=== PATIENT | male | born 1980 | race Two or more races ===

== ENCOUNTER 2020-12-14 18:34 | Inpatient (IN) | payer MEDICARE, OTHER, SELFPAY ==
--- NOTE | 2020-12-14 | ECG_ITS ---
Test Reason : New admission Blood Pressure : / mmHG Vent. Rate : 069 BPM Atrial Rate : 069 BPM P-R Int : 152 ms QRS Dur : 102 ms QT Int : 394 ms P-R-T Axes : 057 071 044 degrees QTc Int : 422 ms Normal sinus rhythm Normal ECG No previous ECGs available Referred By: Deepti Saul Electronically Signed By:LINO CHAMBERS MD
[2020-12-14] MEDS: traZODone HCL 50 MG TABLET PO (21:02)
[2020-12-14] MEDS: hydrOXYzine HCL 25 MG TABLET PO (21:02)
[2020-12-14] MEDS: LORazepam 1 MG TABLET PO (21:58)
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
--- NOTE | 2020-12-14 22:31 | PC.NURSE ---
Patient has requested compression stockings because he has a history of blood clots and they make his leg feel better.
--- NOTE | 2020-12-14 23:19 | PC.NURSE ---
While obtaining patients blood pressure, patient refused to sit down, was clenching fist, and moving around. Blood pressure read out 180/80. Patient then would not let this nurse take blood pressure reading again.
[2020-12-14 23:21] VITALS: BP 180/80
[2020-12-14] MEDS: Nicotine Polacrilex 2 MG GUM BUCCAL (23:24)
[2020-12-15] MEDS: Acetaminophen 325 MG TABLET 650 MG PO ×2 (08:11→18:23)
[2020-12-15] MEDS: LORazepam 1 MG TABLET PO (08:12)
[2020-12-15 08:28] LABS: MANUAL DIFF FLAG NO
[2020-12-15 08:36] LABS: Basophils Absolute Auto 0.1 X10*3/uL (0.0-0.2); Basophils Percent Auto 0.6 % (0-2); Eosinophils Absolute Auto 0.4 X10*3/uL (0.0-0.4); Hematocrit 46.5 % (42-52); Hemoglobin 15.6 g/dl (14.0-18.0); Lymphocytes Absolute Auto 2.6 X10*3/uL (1.2-4.9); Mean Corpuscular HGB Conc 33.5 g/dl (31.0-36.0); Mean Corpuscular Volume 92.4 fL (80-98); Mean Platelet Volume 9.8 fL (9.4-12.4); Monocytes Absolute Auto 0.8 X10*3/uL (0.1-1.2); Neutrophils Absolute Auto 6.1 X10*3/uL (2.0-8.3); Neutrophils Percent Auto 60.4 % (45-73); Platelet Count 265 X10*3/uL (160-400); Red Blood Count 5.03 X10*6/uL (4.60-5.80); Red Cell Distribution Width 14.2 % (11.0-16.0); White Blood Count 10.1 X10*3/uL (4.8-10.8)
[2020-12-15 08:51] LABS: Alanine Aminotransferase 18 U/L (0-40); Alkaline Phosphatase 60 U/L (39-117); Anion Gap 13 (12-20); Aspartate Amino Transferase 15 U/L (5-37); Bilirubin Total 0.6 mg/dL (0.0-1.0); Blood Urea Nitrogen 16 mg/dL (9-16); Calcium 9.5 mg/dL (8.4-10.2); Carbon Dioxide 23 mmol/L (22-29); Chloride 105 mmol/L (96-108); Cholesterol 152 mg/dL; Estimated Glomerular Filt Rate > 60; Glucose Fasting 105 mg/dL (60-99); HDL Cholesterol 40 mg/dL; LDL Cholesterol Calculated 95 mg/dl; Potassium 4.6 mmol/L (3.3-5.1); Sodium 136 mmol/L (135-145); Total Protein 6.5 g/dL (6.5-8.0); Triglycerides 88 mg/dL
[2020-12-15 08:52] LABS: Estimated Average Glucose 94 mg/dL; Hemoglobin A1c % 4.9 %
[2020-12-15] MEDS: Nicotine Polacrilex 2 MG GUM BUCCAL ×2 (11:16→13:22)
[2020-12-15] MEDS: Lidocaine 4 % Patch ADH..PATCH 2 PATCH TRANSDERMA (12:19)
--- NOTE | 2020-12-15 13:32 | MHC.CLN ---
NUTRITION PATIENT REPORTED THAT HEIGHT = 6 FEET, WEIGHT = 203#. REPORTS GOOD APPETITE.
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
[2020-12-15 14:59] VITALS: BP 141/86; PULSE 80
[2020-12-15] MEDS: OLANZapine 5 MG TABLET PO ×2 (14:59→21:31)
[2020-12-15] MEDS: cloNIDine HCL 0.1 MG TABLET PO ×2 (14:59→21:31)
[2020-12-15] MEDS: hydrOXYzine HCL 50 MG TABLET PO (18:24)
[2020-12-15 21:01] VITALS: BP 131/81; PULSE 74; TEMP 36.7; O2SAT 96
[2020-12-15 21:31] VITALS: BP 131/81; PULSE 74
[2020-12-15] MEDS: traZODone HCL 50 MG TABLET PO (21:36)
[2020-12-15] MEDS: Gabapentin 600 MG TABLET PO (22:51)
[2020-12-15] MEDS: Ibuprofen 600 MG TABLET PO (22:51)
[2020-12-16] MEDS: hydrOXYzine HCL 50 MG TABLET PO ×4 (01:26→22:03)
[2020-12-16] MEDS: Acetaminophen 325 MG TABLET 650 MG PO ×4 (01:26→20:11)
[2020-12-16] MEDS: traZODone HCL 50 MG TABLET PO ×2 (01:27→22:03)
[2020-12-16 07:59] VITALS: BP 140/86; PULSE 76
[2020-12-16] MEDS: Ibuprofen 600 MG TABLET PO ×2 (07:59→14:38)
[2020-12-16] MEDS: cloNIDine HCL 0.1 MG TABLET PO ×2 (07:59→20:11)
[2020-12-16] MEDS: Nicotine Polacrilex 2 MG GUM BUCCAL ×2 (07:59→18:22)
[2020-12-16] MEDS: OLANZapine 5 MG TABLET PO (07:59)
[2020-12-16] MEDS: Lidocaine 4 % Patch ADH..PATCH 2 PATCH TRANSDERMA (07:59)
[2020-12-16 08:24] VITALS: BP 140/86; PULSE 76; TEMP 36.6
--- NOTE | 2020-12-16 09:55 | P.PNPSI_ITS ---
Subjective Subjective Date of Service: 12/16/20 Reason For Visit: Major Depressive D/O Subjective Notes: Conditional Voluntary Interim History: Pt reports feeling less anxious. He reports less AH but continues to hear them at night. He reports he wants to have gabapentin back for chronic back pain. He reports nightmares. He continues to report passive SI but denies any plan or intent. Pt wants to continue OP psych tx, no substance use treatment. He has been visible in the unit, per nursing, pt agitated last night due to pain and demanding gabapentin when day of admission he had stated it had not been beneficial for pain. Medication Compliance: Yes Review of Systems Constitutional: Reports headache(s), Reports poor appetite and Reports weakness Eyes: Reports floaters Reports headache(s) Cardiovascular: Denies chest pain, Denies chest pain at rest, Denies chest pain with activity, Denies diaphoresis, Denies syncope, Denies rapid heart rate, Denies irregular heart rhythm, Denies lightheadedness and Denies radiating jaw, neck or arm pain Respiratory: Denies chest congestion, Denies hemoptysis, Denies pain on inspiration and Denies pain with cough Gastrointestinal: Denies constipation, Denies diarrhea, Denies loose stools and Denies nausea Musculoskeletal: Reports back pain (chronic) Denies syncope, Reports headache(s) and Reports weakness Mental Status Exam Mental Status Exam Narrative: Appearance: casually groomed, fair hygiene in NAD Behavior:cooperative psychomotor: no agitation or retardation noted Speech:clear, normal rate/rhythm/volume, spontaneous Thought process: linear Thought content:no signs of psychosis, future oriented, wanting to get better Mood: less anxious Affect: congruent, non labile SI:denies HI:denies VH/AH:AH telling him he is worthless, seeing some shadows Delusions:none Insight/judgment:fair x 2. Memory/cog: alert, oriented x 3. grossly intact to conversational testing. Diagnostics Vital Signs (24Hr): Vital Signs - 24 hr 12/16/20 18:00 12/16/20 20:11 12/17/20 08:00 Temperature 97.8 F 98.1 F Pulse Rate 77 77 68 Respiratory Rate 18 18 Blood Pressure 143/81 H 143/81 H 125/63 Pulse Oximetry 97 98 12/17/20 08:13 Temperature Pulse Rate 68 Respiratory Rate Blood Pressure 125/63 Pulse Oximetry Labs Results: 12/15/20 08:19 12/15/20 08:19 Medications Medications Current Medications Acetaminophen (Acetaminophen 325 Mg Tablet) 650 mg PO Q6H PRN PRN Reason: Headache/Pain Mild Scale (1-3) Last Admin: 12/16/20 20:11 Dose: 650 mg Documented by: Al Hydroxide/Mg Hydroxide (Magnesium Hydrox/Alum Hydrox 30 Ml Oral.Susp) 30 ml PO Q6H PRN PRN Reason: Heartburn/Nausea Clonidine HCl (Clonidine Hcl 0.1 Mg Tablet) 0.1 mg PO BID [facility]; Protocol Last Admin: 12/17/20 08:13 Dose: 0.1 mg Documented by: Gabapentin (Gabapentin 300 Mg Capsule) 900 mg PO TID [facility] Last Admin: 12/17/20 08:13 Dose: 900 mg Documented by: Hydroxyzine HCl (Hydroxyzine Hcl 50 Mg Tablet) 50 mg PO Q6H PRN PRN Reason: Anxiety Last Admin: 12/17/20 06:13 Dose: 50 mg Documented by: Ibuprofen (Ibuprofen 600 Mg Tablet) 600 mg PO Q6H PRN PRN Reason: Pain, Moderate (Pain Scale 4-6 Last Admin: 12/17/20 06:13 Dose: 600 mg Documented by: Lidocaine (Lidocaine 4 % Patch Adh..Patch) 2 patch TRANSDERMA DAILY [facility]; Protocol Last Admin: 12/17/20 08:15 Dose: 2 patch Documented by: Magnesium Hydroxide (Milk Of Magnesia 30 Ml Oral.Susp) 30 ml PO DAILY PRN PRN Reason: Constipation Nicotine Polacrilex (Nicotine Polacrilex 2 Mg Gum) 2 mg BUCCAL Q2H PRN PRN Reason: Nicotine Cravings Last Admin: 12/16/20 18:22 Dose: 2 mg Documented by: Olanzapine (Olanzapine 5 Mg Tablet) 5 mg PO DAILY [facility] Last Admin: 12/17/20 08:14 Dose: 5 mg Documented by: Olanzapine (Olanzapine 10 Mg Tablet) 10 mg PO BEDTIME [facility] Last Admin: 12/16/20 20:11 Dose: 10 mg Documented by: Trazodone HCl (Trazodone Hcl 50 Mg Tablet) 50 mg PO BEDTIME PRN PRN Reason: Insomnia Last Admin: 12/17/20 00:00 Dose: 50 mg Documented by: Allergies Allergies Allergy/AdvReac Type Severity Reaction Status Date / Time No Known Allergies Allergy Unverified 11/13/19 18:30 seasonal Allergy Unknown Uncoded 10/08/17 00:00 Assessment & Plan Assessment & Plan (1) Cocaine use disorder, moderate, dependence: Status: Acute Code(s): F14.20 - Cocaine dependence, uncomplicated (2) PTSD (post-traumatic stress disorder): Status: Acute Code(s): F43.10 - Post-traumatic stress disorder, unspecified Assessment and Plan: Mr. Baumann is a 40 year-old male with hx of cocaine use, PTSD who self presented to [facility] ED reporting increase CAH telling him to OD on Opioids and cocaine. In the ED, his utox was positive for cocaine. Pt reports in past 2 weeks, increasingly more agitated in setting of cocaine use, nightmares related to past trauma. We discussed risks, benefits and alternative treatment options. Pt reports he ahs been on seroquel with limited efficacy for voices. He agrees to start Olanzapine. He also agrees to start clonidine for anxiety. PLAN 1. Admit to M3 2. Start olanzapine 5mg po BID- titrate as needed and tolerated for voices 3. Start clonidine for anxious mood/sleep/nightmares 4. We discussed starting antidepressant 5. obtain collateral information 6. Aftercare planning. I spent minutes with the patient and/or on the patient floor today, greater than?50% of which was spent counseling/coordinating care. Reason for contiued inpatient stay Substantial Risk for: harm to self
[2020-12-16] MEDS: Gabapentin 300 MG CAPSULE 900 MG PO ×2 (16:46→20:11)
[2020-12-16 18:00] VITALS: BP 143/81; PULSE 77; RESP 18; TEMP 36.6; O2SAT 97
[2020-12-16 20:11] VITALS: BP 143/81; PULSE 77
[2020-12-16] MEDS: OLANZapine 10 MG TABLET PO (20:11)
[2020-12-17] MEDS: traZODone HCL 50 MG TABLET PO
[2020-12-17] MEDS: OLANZapine 5 MG TABLET PO ×2 (00:27→08:14)
[2020-12-17] MEDS: Ibuprofen 600 MG TABLET PO ×2 (06:13→20:59)
[2020-12-17] MEDS: hydrOXYzine HCL 50 MG TABLET PO ×2 (06:13→13:18)
[2020-12-17 08:00] VITALS: BP 125/63; PULSE 68; RESP 18; TEMP 36.7; O2SAT 98
[2020-12-17 08:13] VITALS: BP 125/63; PULSE 68
[2020-12-17] MEDS: Gabapentin 300 MG CAPSULE 900 MG PO ×3 (08:13→20:58)
[2020-12-17] MEDS: cloNIDine HCL 0.1 MG TABLET PO ×3 (08:13→20:58)
[2020-12-17] MEDS: Lidocaine 4 % Patch ADH..PATCH 2 PATCH TRANSDERMA (08:15)
--- NOTE | 2020-12-17 10:06 | HO.PSYCHPN ---
Subjective Subjective Date of Service: 12/17/20 Reason For Visit: Major Depressive D/O Subjective Notes: Conditional Voluntary Interim History: Pt reports difficulty sleeping at night. he reports nightmares, waking up thinking someone is going after him and later not being able to go back to sleep. Pt reports feeling anxious during the day. He reports limited benefit with clonidine at current dose. Pt denies SI/HI. Per nursing, pt has been visible in the unit. NO behavioral concerns. appreciative of support. Medication Compliance: Yes Review of Systems Constitutional: Reports headache(s), Reports poor appetite and Reports weakness Eyes: Reports floaters Reports headache(s) Cardiovascular: Denies chest pain, Denies chest pain at rest, Denies chest pain with activity, Denies diaphoresis, Denies syncope, Denies rapid heart rate, Denies irregular heart rhythm, Denies lightheadedness and Denies radiating jaw, neck or arm pain Respiratory: Denies chest congestion, Denies hemoptysis, Denies pain on inspiration and Denies pain with cough Gastrointestinal: Denies constipation, Denies diarrhea, Denies loose stools and Denies nausea Musculoskeletal: Reports back pain (chronic) Denies syncope, Reports headache(s) and Reports weakness Mental Status Exam Mental Status Exam Narrative: Appearance: casually groomed, fair hygiene in NAD Behavior:cooperative psychomotor: no agitation or retardation noted Speech:clear, normal rate/rhythm/volume, spontaneous Thought process: linear Thought content:no signs of psychosis, future oriented, wanting to get better Mood: less anxious Affect: congruent, non labile SI:denies HI:denies VH/AH:AH telling him he is worthless, seeing some shadows Delusions:none Insight/judgment:fair x 2. Memory/cog: alert, oriented x 3. grossly intact to conversational testing. Diagnostics Vital Signs (24Hr): Vital Signs - 24 hr 12/16/20 18:00 12/16/20 20:11 12/17/20 08:00 Temperature 97.8 F 98.1 F Pulse Rate 77 77 68 Respiratory Rate 18 18 Blood Pressure 143/81 H 143/81 H 125/63 Pulse Oximetry 97 98 12/17/20 08:13 Temperature Pulse Rate 68 Respiratory Rate Blood Pressure 125/63 Pulse Oximetry Labs Results: 12/15/20 08:19 12/15/20 08:19 Medications Medications Current Medications Acetaminophen (Acetaminophen 325 Mg Tablet) 650 mg PO Q6H PRN PRN Reason: Headache/Pain Mild Scale (1-3) Last Admin: 12/16/20 20:11 Dose: 650 mg Documented by: Al Hydroxide/Mg Hydroxide (Magnesium Hydrox/Alum Hydrox 30 Ml Oral.Susp) 30 ml PO Q6H PRN PRN Reason: Heartburn/Nausea Clonidine HCl (Clonidine Hcl 0.1 Mg Tablet) 0.1 mg PO BID [facility]; Protocol Last Admin: 12/17/20 08:13 Dose: 0.1 mg Documented by: Gabapentin (Gabapentin 300 Mg Capsule) 900 mg PO TID [facility] Last Admin: 12/17/20 08:13 Dose: 900 mg Documented by: Hydroxyzine HCl (Hydroxyzine Hcl 50 Mg Tablet) 50 mg PO Q6H PRN PRN Reason: Anxiety Last Admin: 12/17/20 06:13 Dose: 50 mg Documented by: Ibuprofen (Ibuprofen 600 Mg Tablet) 600 mg PO Q6H PRN PRN Reason: Pain, Moderate (Pain Scale 4-6 Last Admin: 12/17/20 06:13 Dose: 600 mg Documented by: Lidocaine (Lidocaine 4 % Patch Adh..Patch) 2 patch TRANSDERMA DAILY [facility]; Protocol Last Admin: 12/17/20 08:15 Dose: 2 patch Documented by: Magnesium Hydroxide (Milk Of Magnesia 30 Ml Oral.Susp) 30 ml PO DAILY PRN PRN Reason: Constipation Nicotine Polacrilex (Nicotine Polacrilex 2 Mg Gum) 2 mg BUCCAL Q2H PRN PRN Reason: Nicotine Cravings Last Admin: 12/16/20 18:22 Dose: 2 mg Documented by: Olanzapine (Olanzapine 5 Mg Tablet) 5 mg PO DAILY [facility] Last Admin: 12/17/20 08:14 Dose: 5 mg Documented by: Olanzapine (Olanzapine 10 Mg Tablet) 10 mg PO BEDTIME [facility] Last Admin: 12/16/20 20:11 Dose: 10 mg Documented by: Trazodone HCl (Trazodone Hcl 50 Mg Tablet) 50 mg PO BEDTIME PRN PRN Reason: Insomnia Last Admin: 12/17/20 00:00 Dose: 50 mg Documented by: Allergies Allergies Allergy/AdvReac Type Severity Reaction Status Date / Time No Known Allergies Allergy Unverified 11/13/19 18:30 seasonal Allergy Unknown Uncoded 10/08/17 00:00 Assessment & Plan Assessment & Plan (1) Cocaine use disorder, moderate, dependence: Status: Acute Code(s): F14.20 - Cocaine dependence, uncomplicated (2) PTSD (post-traumatic stress disorder): Status: Acute Code(s): F43.10 - Post-traumatic stress disorder, unspecified Assessment and Plan: Mr. Baumann is a 40 year-old male with hx of cocaine use, PTSD who self presented to [facility] ED reporting increase CAH telling him to OD on Opioids and cocaine. In the ED, his utox was positive for cocaine. Pt reports in past 2 weeks, increasingly more agitated in setting of cocaine use, nightmares related to past trauma. We discussed risks, benefits and alternative treatment options. Pt reports he ahs been on seroquel with limited efficacy for voices. He agrees to start Olanzapine. He also agrees to start clonidine for anxiety. PLAN 1. Admit to M3 2. Switch olanzapine for seroquel for severe anxious mood 3. increase clonidine 0.1mg po TID, hold if SBP <90 for anxious mood/sleep/nightmares 4. Start remeron 15mg po qhs sleep/increase dose for antidepressant effect. 5. obtain collateral information 6. Aftercare planning. I spent minutes with the patient and/or on the patient floor today, greater than?50% of which was spent counseling/coordinating care. Patient educated on: diagnosis, medication risk/benefits and substance abuse Informed Consent: understands Reason for contiued inpatient stay Substantial Risk for: harm to self
[2020-12-17] MEDS: Acetaminophen 325 MG TABLET 650 MG PO (13:18)
[2020-12-17 15:07] VITALS: BP 128/67; PULSE 71
[2020-12-17] MEDS: QUEtiapine Fumarate 100 MG TABLET PO ×2 (15:07→20:59)
[2020-12-17] MEDS: Nicotine Polacrilex 2 MG GUM BUCCAL (15:08)
[2020-12-17 20:58] VITALS: BP 115/71; PULSE 92
[2020-12-17] MEDS: Mirtazapine 15 MG TABLET PO (20:58)
[2020-12-17 21:02] VITALS: BP 115/71; PULSE 92; TEMP 36.8; O2SAT 99
[2020-12-18] MEDS: QUEtiapine Fumarate 50 MG TABLET PO ×4 (01:30→23:32)
[2020-12-18] MEDS: hydrOXYzine HCL 50 MG TABLET PO ×2 (01:30→22:11)
[2020-12-18] MEDS: Acetaminophen 325 MG TABLET 650 MG PO ×3 (01:30→21:11)
[2020-12-18] MEDS: traZODone HCL 100 MG TABLET PO ×2 (01:36→23:32)
[2020-12-18] MEDS: Ibuprofen 600 MG TABLET PO ×3 (05:46→22:11)
[2020-12-18 08:00] VITALS: BP 135/70; PULSE 71; RESP 16; TEMP 36.8
[2020-12-18] MEDS: Gabapentin 300 MG CAPSULE 900 MG PO ×3 (08:01→21:11)
[2020-12-18 08:02] VITALS: BP 135/70; PULSE 71
[2020-12-18] MEDS: QUEtiapine Fumarate 100 MG TABLET PO ×3 (08:02→22:11)
[2020-12-18] MEDS: Lidocaine 4 % Patch ADH..PATCH 2 PATCH TRANSDERMA (08:02)
[2020-12-18] MEDS: cloNIDine HCL 0.1 MG TABLET PO ×3 (08:02→22:10)
[2020-12-18] MEDS: Nicotine Polacrilex 2 MG GUM BUCCAL ×4 (08:25→21:11)
[2020-12-18] MEDS: Nicotine 21 MG PATCH.TD24 TRANSDERMA (10:40)
[2020-12-18 14:59] VITALS: BP 178/90; PULSE 114
--- NOTE | 2020-12-18 18:50 | HO.PSYCHPN ---
Subjective Subjective Date of Service: 12/18/20 Reason For Visit: Major Depressive D/O Diagnostics Vital Signs (24Hr): Vital Signs - 24 hr 12/17/20 20:58 12/17/20 21:02 12/18/20 08:00 Temperature 98.3 F 98.2 F Pulse Rate 92 92 71 Respiratory Rate 16 Blood Pressure 115/71 115/71 135/70 Pulse Oximetry 99 12/18/20 08:02 12/18/20 14:59 Temperature Pulse Rate 71 114 H Respiratory Rate Blood Pressure 135/70 178/90 H Pulse Oximetry Labs Results: 12/15/20 08:19 12/15/20 08:19 Medications Medications Current Medications Acetaminophen (Acetaminophen 325 Mg Tablet) 650 mg PO Q6H PRN PRN Reason: Headache/Pain Mild Scale (1-3) Last Admin: 12/18/20 08:01 Dose: 650 mg Documented by: Al Hydroxide/Mg Hydroxide (Magnesium Hydrox/Alum Hydrox 30 Ml Oral.Susp) 30 ml PO Q6H PRN PRN Reason: Heartburn/Nausea Clonidine HCl (Clonidine Hcl 0.1 Mg Tablet) 0.1 mg PO TID [facility]; Protocol Last Admin: 12/18/20 14:59 Dose: 0.1 mg Documented by: Gabapentin (Gabapentin 300 Mg Capsule) 900 mg PO TID [facility] Last Admin: 12/18/20 14:59 Dose: 900 mg Documented by: Hydroxyzine HCl (Hydroxyzine Hcl 50 Mg Tablet) 50 mg PO Q6H PRN PRN Reason: Anxiety Last Admin: 12/18/20 01:30 Dose: 50 mg Documented by: Ibuprofen (Ibuprofen 600 Mg Tablet) 600 mg PO Q6H PRN PRN Reason: Pain, Moderate (Pain Scale 4-6 Last Admin: 12/18/20 13:46 Dose: 600 mg Documented by: Lidocaine (Lidocaine 4 % Patch Adh..Patch) 2 patch TRANSDERMA DAILY [facility]; Protocol Last Admin: 12/18/20 08:02 Dose: 2 patch Documented by: Magnesium Hydroxide (Milk Of Magnesia 30 Ml Oral.Susp) 30 ml PO DAILY PRN PRN Reason: Constipation Mirtazapine (Mirtazapine 15 Mg Tablet) 15 mg PO BEDTIME [facility] Last Admin: 12/17/20 20:58 Dose: 15 mg Documented by: Nicotine (Nicotine 21 Mg Patch.Td24) 21 mg TRANSDERMA DAILY [facility] Last Admin: 12/18/20 10:40 Dose: 21 mg Documented by: Nicotine Polacrilex (Nicotine Polacrilex 2 Mg Gum) 2 mg BUCCAL Q2H PRN PRN Reason: Nicotine Cravings Last Admin: 12/18/20 10:40 Dose: 2 mg Documented by: Quetiapine Fumarate (Quetiapine Fumarate 100 Mg Tablet) 100 mg PO TID [facility] Last Admin: 12/18/20 15:00 Dose: 100 mg Documented by: Quetiapine Fumarate (Quetiapine Fumarate 50 Mg Tablet) 50 mg PO Q4H PRN PRN Reason: anxiety/agitation Last Admin: 12/18/20 13:46 Dose: 50 mg Documented by: Trazodone HCl (Trazodone Hcl 100 Mg Tablet) 100 mg PO BEDTIME PRN PRN Reason: Insomnia Last Admin: 12/18/20 01:36 Dose: 100 mg Documented by: Allergies Allergies Allergy/AdvReac Type Severity Reaction Status Date / Time No Known Allergies Allergy Unverified 11/13/19 18:30 seasonal Allergy Unknown Uncoded 10/08/17 00:00 Assessment & Plan Assessment & Plan (1) Cocaine use disorder, moderate, dependence: Status: Acute Code(s): F14.20 - Cocaine dependence, uncomplicated (2) PTSD (post-traumatic stress disorder): Status: Acute Code(s): F43.10 - Post-traumatic stress disorder, unspecified Assessment and Plan: Mr. Baumann is a 40 year-old male with hx of cocaine use, PTSD who self presented to [facility] ED reporting increase CAH telling him to OD on Opioids and cocaine. In the ED, his utox was positive for cocaine. Pt reports in past 2 weeks, increasingly more agitated in setting of cocaine use, nightmares related to past trauma. We discussed risks, benefits and alternative treatment options. Pt reports he ahs been on seroquel with limited efficacy for voices. He agrees to start Olanzapine. He also agrees to start clonidine for anxiety. PLAN 1. Admit to M3 2. Switch olanzapine for seroquel for severe anxious mood 3. increase clonidine 0.1mg po TID, hold if SBP <90 for anxious mood/sleep/nightmares 4. Start remeron 15mg po qhs sleep/increase dose for antidepressant effect. 5. obtain collateral information 6. Aftercare planning. I spent minutes with the patient and/or on the patient floor today, greater than?50% of which was spent counseling/coordinating care. Reason for contiued inpatient stay Substantial Risk for: harm to self and inability to function
[2020-12-18 22:10] VITALS: BP 175/89; PULSE 93
[2020-12-18] MEDS: Mirtazapine 15 MG TABLET PO (22:11)
[2020-12-18 22:13] VITALS: BP 175/89; PULSE 93; TEMP 36.9; O2SAT 98
--- NOTE | 2020-12-18 23:55 | P.PNPSI_ITS ---
Subjective Subjective Date of Service: 12/18/20 Reason For Visit: Major Depressive D/O Interim History: Patient seen. Continues to complain of insomnia and nightmares. Overall better. He says he would like a new pair of compression stockings so he doesn't have to wash his one pair daily. CO back pain. No SI, no HI. Medication Compliance: Yes Side effects from medications: No Attending Groups: Yes Review of Systems Constitutional: Reports headache(s), Reports poor appetite and Reports weakness Eyes: Reports floaters Reports headache(s) Cardiovascular: Denies chest pain, Denies chest pain at rest, Denies chest pain with activity, Denies diaphoresis, Denies syncope, Denies rapid heart rate, Denies irregular heart rhythm, Denies lightheadedness and Denies radiating jaw, neck or arm pain Respiratory: Denies chest congestion, Denies hemoptysis, Denies pain on inspiration and Denies pain with cough Gastrointestinal: Denies constipation, Denies diarrhea, Denies loose stools and Denies nausea Musculoskeletal: Reports back pain (chronic) Denies syncope, Reports headache(s) and Reports weakness Mental Status Exam Mental Status Exam Narrative: Appearance: casually groomed, fair hygiene in NAD Behavior:cooperative psychomotor: no agitation or retardation noted Speech:clear, normal rate/rhythm/volume, spontaneous Thought process: linear Thought content:no signs of psychosis, future oriented, wanting to get better Mood: less anxious Affect: congruent, non labile SI:denies HI:denies VH/AH:AH telling him he is worthless, seeing some shadows Delusions:none Insight/judgment:fair x 2. Memory/cog: alert, oriented x 3. grossly intact to conversational testing. Diagnostics Vital Signs (24Hr): Vital Signs - 24 hr 12/18/20 08:00 12/18/20 08:02 12/18/20 14:59 Temperature 98.2 F Pulse Rate 71 71 114 H Respiratory Rate 16 Blood Pressure 135/70 135/70 178/90 H Pulse Oximetry 12/18/20 22:10 12/18/20 22:13 Temperature 98.5 F Pulse Rate 93 93 Respiratory Rate Blood Pressure 175/89 H 175/89 H Pulse Oximetry 98 Labs Results: 12/15/20 08:19 12/15/20 08:19 Medications Medications Current Medications Acetaminophen (Acetaminophen 325 Mg Tablet) 650 mg PO Q6H PRN PRN Reason: Headache/Pain Mild Scale (1-3) Last Admin: 12/18/20 21:11 Dose: 650 mg Documented by: Al Hydroxide/Mg Hydroxide (Magnesium Hydrox/Alum Hydrox 30 Ml Oral.Susp) 30 ml PO Q6H PRN PRN Reason: Heartburn/Nausea Clonidine HCl (Clonidine Hcl 0.1 Mg Tablet) 0.1 mg PO TID [facility]; Protocol Last Admin: 12/18/20 22:10 Dose: 0.1 mg Documented by: Gabapentin (Gabapentin 300 Mg Capsule) 900 mg PO TID [facility] Last Admin: 12/18/20 21:11 Dose: 900 mg Documented by: Hydroxyzine HCl (Hydroxyzine Hcl 50 Mg Tablet) 50 mg PO Q6H PRN PRN Reason: Anxiety Last Admin: 12/18/20 22:11 Dose: 50 mg Documented by: Ibuprofen (Ibuprofen 600 Mg Tablet) 600 mg PO Q6H PRN PRN Reason: Pain, Moderate (Pain Scale 4-6 Last Admin: 12/18/20 22:11 Dose: 600 mg Documented by: Lidocaine (Lidocaine 4 % Patch Adh..Patch) 2 patch TRANSDERMA DAILY [facility]; Protocol Last Admin: 12/18/20 08:02 Dose: 2 patch Documented by: Magnesium Hydroxide (Milk Of Magnesia 30 Ml Oral.Susp) 30 ml PO DAILY PRN PRN Reason: Constipation Mirtazapine (Mirtazapine 15 Mg Tablet) 15 mg PO BEDTIME [facility] Last Admin: 12/18/20 22:11 Dose: 15 mg Documented by: Nicotine (Nicotine 21 Mg Patch.Td24) 21 mg TRANSDERMA DAILY [facility] Last Admin: 12/18/20 10:40 Dose: 21 mg Documented by: Nicotine Polacrilex (Nicotine Polacrilex 2 Mg Gum) 2 mg BUCCAL Q2H PRN PRN Reason: Nicotine Cravings Last Admin: 12/18/20 21:11 Dose: 2 mg Documented by: Quetiapine Fumarate (Quetiapine Fumarate 100 Mg Tablet) 100 mg PO TID [facility] Last Admin: 12/18/20 22:11 Dose: 100 mg Documented by: Quetiapine Fumarate (Quetiapine Fumarate 50 Mg Tablet) 50 mg PO Q4H PRN PRN Reason: anxiety/agitation Last Admin: 12/18/20 23:32 Dose: 50 mg Documented by: Trazodone HCl (Trazodone Hcl 100 Mg Tablet) 100 mg PO BEDTIME PRN PRN Reason: Insomnia Last Admin: 12/18/20 23:32 Dose: 100 mg Documented by: Allergies Allergies Allergy/AdvReac Type Severity Reaction Status Date / Time No Known Allergies Allergy Unverified 11/13/19 18:30 seasonal Allergy Unknown Uncoded 10/08/17 00:00 Assessment & Plan Assessment & Plan (1) Cocaine use disorder, moderate, dependence: Status: Acute Code(s): F14.20 - Cocaine dependence, uncomplicated (2) PTSD (post-traumatic stress disorder): Status: Acute Code(s): F43.10 - Post-traumatic stress disorder, unspecified Assessment and Plan: Mr. Baumann is a 40 year-old male with hx of cocaine use, PTSD who self presented to [facility] ED reporting increase CAH telling him to OD on Opioids and cocaine. In the ED, his utox was positive for cocaine. Pt reports in past 2 weeks, increasingly more agitated in setting of cocaine use, nightmares related to past trauma. We discussed risks, benefits and alternative treatment options. Pt reports he ahs been on seroquel with limited efficacy for voices. He agrees to start Olanzapine. He also agrees to start clonidine for anxiety. PLAN 1. Admit to M3 2. Switch olanzapine for seroquel for severe anxious mood 3. clonidine 0.1mg po TID, hold if SBP <90 for anxious mood/sleep/nightmares 4. remeron 15mg po qhs 5. obtain collateral information 6. Aftercare planning. I spent minutes with the patient and/or on the patient floor today, greater than?50% of which was spent counseling/coordinating care. Reason for contiued inpatient stay Substantial Risk for: harm to self and rapid decompensation
[2020-12-19] MEDS: Acetaminophen 325 MG TABLET 650 MG PO (04:47)
[2020-12-19] MEDS: QUEtiapine Fumarate 50 MG TABLET PO ×2 (04:47→18:29)
[2020-12-19] MEDS: Milk of Magnesia 30 ML ORAL.SUSP PO (06:06)
[2020-12-19] MEDS: hydrOXYzine HCL 50 MG TABLET PO ×2 (08:05→18:29)
[2020-12-19] MEDS: Gabapentin 300 MG CAPSULE 900 MG PO ×3 (08:05→21:53)
[2020-12-19] MEDS: Nicotine Polacrilex 2 MG GUM BUCCAL ×3 (08:05→18:29)
[2020-12-19 08:06] VITALS: BP 149/91; PULSE 80
[2020-12-19] MEDS: Nicotine 21 MG PATCH.TD24 TRANSDERMA (08:06)
[2020-12-19] MEDS: Lidocaine 4 % Patch ADH..PATCH 2 PATCH TRANSDERMA (08:06)
[2020-12-19] MEDS: Ibuprofen 600 MG TABLET PO ×2 (08:06→18:29)
[2020-12-19] MEDS: QUEtiapine Fumarate 100 MG TABLET PO ×3 (08:06→21:53)
[2020-12-19] MEDS: cloNIDine HCL 0.1 MG TABLET PO ×3 (08:06→21:53)
[2020-12-19 08:50] VITALS: BP 149/91; PULSE 80; TEMP 36.7
[2020-12-19] MEDS: chlorproMAZINE HCl 25 MG TABLET 50 MG PO (11:53)
[2020-12-19 14:30] VITALS: BP 151/89; PULSE 91
--- NOTE | 2020-12-19 14:32 | PC.NURSE ---
Administered Thorazine 50mg at 11:53am to help lower anxiety. At 14:30 pt stated that medication didn't help me, I feel more anxious and hyper than I did before. RN assessed vitals, BP 151/89 HR 91. This RN notified Dr. Moraes who is aware.
--- NOTE | 2020-12-19 21:10 | P.PNPSI_ITS ---
Subjective Subjective Date of Service: 12/19/20 Reason For Visit: Major Depressive D/O Interim History: Patient seen. Continues to complain of insomnia and nightmares. Anxious. Asking for back brace. He slept 2 1/2 hours and couldn't fall back asleep and caused difficulties with roommate due to roommate kept up by him .He says Remeron, Seroquel, Clonidine are not helping. Discussed a trial of Thorazine. He agrees. Received a dose of 50 mg x 1 to assess effect. No SI, no HI. Review of Systems Constitutional: Reports headache(s), Reports poor appetite and Reports weakness Eyes: Reports floaters Reports headache(s) Cardiovascular: Denies chest pain, Denies chest pain at rest, Denies chest pain with activity, Denies diaphoresis, Denies syncope, Denies rapid heart rate, De nies irregular heart rhythm, Denies lightheadedness and Denies radiating jaw, neck or arm pain Respiratory: Denies chest congestion, Denies hemoptysis, Denies pain on inspiration and Denies pain with cough Gastrointestinal: Denies constipation, Denies diarrhea, Denies loose stools and Denies nausea Musculoskeletal: Reports back pain (chronic) Denies syncope, Reports headache(s) and Reports weakness Mental Status Exam Mental Status Exam Narrative: Appearance: casually groomed, fair hygiene in NAD Behavior:cooperative psychomotor: no agitation or retardation noted Speech:clear, normal rate/rhythm/volume, spontaneous Thought process: linear, perseverative Thought content:no signs of psychosis, future oriented, wanting to get better Mood: anxious Affect: congruent, non labile SI:denies HI:denies VH/AH:AH telling him he is worthless, seeing some shadows Delusions:none Insight/judgment:fair x 2. Memory/cog: alert, oriented x 3. grossly intact to conversational testing. Diagnostics Vital Signs (24Hr): Vital Signs - 24 hr 12/18/20 22:10 12/18/20 22:13 12/19/20 08:06 Temperature 98.5 F Pulse Rate 93 93 80 Blood Pressure 175/89 H 175/89 H 149/91 H Pulse Oximetry 98 12/19/20 08:50 12/19/20 14:30 Temperature 98.1 F Pulse Rate 80 91 Blood Pressure 149/91 H 151/89 H Pulse Oximetry Labs Results: 12/15/20 08:19 12/15/20 08:19 Medications Medications Current Medications Acetaminophen (Acetaminophen 325 Mg Tablet) 650 mg PO Q6H PRN PRN Reason: Headache/Pain Mild Scale (1-3) Last Admin: 12/19/20 04:47 Dose: 650 mg Documented by: Al Hydroxide/Mg Hydroxide (Magnesium Hydrox/Alum Hydrox 30 Ml Oral.Susp) 30 ml PO Q6H PRN PRN Reason: Heartburn/Nausea Clonidine HCl (Clonidine Hcl 0.1 Mg Tablet) 0.1 mg PO TID [facility]; Protocol Last Admin: 12/19/20 14:30 Dose: 0.1 mg Documented by: Gabapentin (Gabapentin 300 Mg Capsule) 900 mg PO TID [facility] Last Admin: 12/19/20 14:22 Dose: 900 mg Documented by: Hydroxyzine HCl (Hydroxyzine Hcl 50 Mg Tablet) 50 mg PO Q6H PRN PRN Reason: Anxiety Last Admin: 12/19/20 18:29 Dose: 50 mg Documented by: Ibuprofen (Ibuprofen 600 Mg Tablet) 600 mg PO Q6H PRN PRN Reason: Pain, Moderate (Pain Scale 4-6 Last Admin: 12/19/20 18:29 Dose: 600 mg Documented by: Lidocaine (Lidocaine 4 % Patch Adh..Patch) 2 patch TRANSDERMA DAILY [facility]; Protocol Last Admin: 12/19/20 08:06 Dose: 2 patch Documented by: Magnesium Hydroxide (Milk Of Magnesia 30 Ml Oral.Susp) 30 ml PO DAILY PRN PRN Reason: Constipation Last Admin: 12/19/20 06:06 Dose: 30 ml Documented by: Mirtazapine (Mirtazapine 15 Mg Tablet) 15 mg PO BEDTIME [facility] Last Admin: 12/18/20 22:11 Dose: 15 mg Documented by: Nicotine (Nicotine 21 Mg Patch.Td24) 21 mg TRANSDERMA DAILY [facility] Last Admin: 12/19/20 08:06 Dose: 21 mg Documented by: Nicotine Polacrilex (Nicotine Polacrilex 2 Mg Gum) 2 mg BUCCAL Q2H PRN PRN Reason: Nicotine Cravings Last Admin: 12/19/20 18:29 Dose: 2 mg Documented by: Quetiapine Fumarate (Quetiapine Fumarate 100 Mg Tablet) 100 mg PO TID [facility] Last Admin: 12/19/20 14:22 Dose: 100 mg Documented by: Quetiapine Fumarate (Quetiapine Fumarate 50 Mg Tablet) 50 mg PO Q4H PRN PRN Reason: anxiety/agitation Last Admin: 12/19/20 18:29 Dose: 50 mg Documented by: Trazodone HCl (Trazodone Hcl 100 Mg Tablet) 100 mg PO BEDTIME PRN PRN Reason: Insomnia Last Admin: 12/18/20 23:32 Dose: 100 mg Documented by: Allergies Allergies Allergy/AdvReac Type Severity Reaction Status Date / Time No Known Allergies Allergy Unverified 11/13/19 18:30 seasonal Allergy Unknown Uncoded 10/08/17 00:00 Assessment & Plan Assessment & Plan (1) Cocaine use disorder, moderate, dependence: Status: Acute Code(s): F14.20 - Cocaine dependence, uncomplicated (2) PTSD (post-traumatic stress disorder): Status: Acute Code(s): F43.10 - Post-traumatic stress disorder, unspecified Assessment and Plan: Mr. Baumann is a 40 year-old male with hx of cocaine use, PTSD who self presented to [facility] ED reporting increase CAH telling him to OD on Opioids and cocaine. In the ED, his utox was positive for cocaine. Pt reports in past 2 weeks, increasingly more agitated in setting of cocaine use, nightmares related to past trauma. We discussed risks, benefits and alternative treatment options. Pt reports he ahs been on seroquel with limited efficacy for voices. He agrees to start Olanzapine. He also agrees to start clonidine for anxiety. PLAN 1. Admit to M3 2. Switch olanzapine for seroquel for severe anxious mood 3. increase clonidine 0.1mg po TID, hold if SBP <90 for anxious mood/sleep/nightmares 4. Start remeron 15mg po qhs sleep/increase dose for antidepressant effect. 5. obtain collateral information 6. Aftercare planning. 12/19/20: Trial dose of Thorazine 50 mg and assess. I spent minutes with the patient and/or on the patient floor today, greater than?50% of which was spent counseling/coordinating care. Reason for contiued inpatient stay Substantial Risk for: harm to self and inability to function
[2020-12-19 21:45] VITALS: BP 155/91; PULSE 91; RESP 20; TEMP 36.8; O2SAT 95
[2020-12-19] MEDS: traZODone HCL 100 MG TABLET PO (21:52)
[2020-12-19 21:53] VITALS: BP 155/91; PULSE 91
[2020-12-19] MEDS: Mirtazapine 15 MG TABLET PO (21:53)
[2020-12-20] MEDS: QUEtiapine Fumarate 50 MG TABLET PO ×3 (01:13→16:51)
[2020-12-20] MEDS: hydrOXYzine HCL 50 MG TABLET PO ×2 (01:13→11:47)
[2020-12-20] MEDS: Nicotine Polacrilex 2 MG GUM BUCCAL ×2 (04:33→15:17)
[2020-12-20] MEDS: Ibuprofen 600 MG TABLET PO (04:33)
[2020-12-20] MEDS: Acetaminophen 325 MG TABLET 650 MG PO (05:51)
[2020-12-20 08:01] VITALS: BP 138/94; PULSE 73
[2020-12-20] MEDS: Nicotine 21 MG PATCH.TD24 TRANSDERMA (08:01)
[2020-12-20] MEDS: Gabapentin 300 MG CAPSULE 900 MG PO ×3 (08:01→21:28)
[2020-12-20] MEDS: Lidocaine 4 % Patch ADH..PATCH 2 PATCH TRANSDERMA (08:01)
[2020-12-20] MEDS: QUEtiapine Fumarate 100 MG TABLET PO ×3 (08:01→21:28)
[2020-12-20] MEDS: cloNIDine HCL 0.1 MG TABLET PO ×2 (08:01→15:12)
[2020-12-20 08:10] VITALS: BP 138/94; PULSE 73; TEMP 36.8
[2020-12-20 18:00] VITALS: BP 152/84; PULSE 82; RESP 20; TEMP 36.6; O2SAT 97
--- NOTE | 2020-12-20 18:24 | HO.PSYCHPN ---
Subjective Subjective Date of Service: 12/20/20 Reason For Visit: Major Depressive D/O Interim History: Patient seen and discussed with team. Patient evaluated this morning and upon interview he reports he has only been sleeping 2 hours per night x 7 days, has been tossing and turning, wakes up throughout the night. Reports struggling with nightmares and flashbacks. Feels anxious throughout the day. Discussed his trauma hx. Endorses sx of paranoia, seeing shadows and hearing voices that are bullying. Has sx of hyperarousal including sweating, feels lost, and scared. Daytime energy is low, feels tired but says when he goes to lay down his heart is beating, feels anxious, wants to cry, scream, and hit the wall. Has crying episodes in the shower. Reports sx are worse when he is alone, feels better in the milieu. Says he is feeling nothing from clondine. Denies SI/SIB/HI upon inquiry. Denies irritability or assaultive ideation. Says he feels safe. Medication Compliance: Yes Side effects from medications: No Attending Groups: Intermittent Review of Systems Acute medical concerns: No Medical Review of Systems: unchanged Mental Status Exam Mental Status Exam Narrative: Appearance: casually groomed, fair hygiene in NAD Behavior:cooperative psychomotor: no agitation or retardation noted Speech:clear, normal rate/rhythm/volume, spontaneous Thought process: linear, perseverative Thought content:no signs of psychosis, future oriented, wanting to get better Mood: anxious Affect: congruent, non labile SI:denies HI:denies VH/AH:AH telling him he is worthless, seeing some shadows Delusions:none Insight/judgment:fair x 2. Memory/cog: alert, oriented x 3. grossly intact to conversational testing. Diagnostics Vital Signs (24Hr): Vital Signs - 24 hr 12/19/20 21:45 12/19/20 21:53 12/20/20 08:01 Temperature 98.2 F Pulse Rate 91 91 73 Respiratory Rate 20 Blood Pressure 155/91 H 155/91 H 138/94 H Pulse Oximetry 95 12/20/20 08:10 Temperature 98.2 F Pulse Rate 73 Respiratory Rate Blood Pressure 138/94 H Pulse Oximetry Labs Results: 12/15/20 08:19 12/15/20 08:19 Medications Medications Current Medications Acetaminophen (Acetaminophen 325 Mg Tablet) 650 mg PO Q6H PRN PRN Reason: Headache/Pain Mild Scale (1-3) Last Admin: 12/20/20 05:51 Dose: 650 mg Documented by: Al Hydroxide/Mg Hydroxide (Magnesium Hydrox/Alum Hydrox 30 Ml Oral.Susp) 30 ml PO Q6H PRN PRN Reason: Heartburn/Nausea Clonidine HCl (Clonidine Hcl 0.2 Mg Tablet) 0.2 mg PO TID [facility]; Protocol Doxepin HCl (Doxepin Hcl 25 Mg Capsule) 25 mg PO BEDTIME [facility] Gabapentin (Gabapentin 300 Mg Capsule) 900 mg PO TID [facility] Last Admin: 12/20/20 15:12 Dose: 900 mg Documented by: Hydroxyzine HCl (Hydroxyzine Hcl 50 Mg Tablet) 50 mg PO Q6H PRN PRN Reason: Anxiety Last Admin: 12/20/20 11:47 Dose: 50 mg Documented by: Ibuprofen (Ibuprofen 600 Mg Tablet) 600 mg PO Q6H PRN PRN Reason: Pain, Moderate (Pain Scale 4-6 Last Admin: 12/20/20 04:33 Dose: 600 mg Documented by: Lidocaine (Lidocaine 4 % Patch Adh..Patch) 2 patch TRANSDERMA DAILY [facility]; Protocol Last Admin: 12/20/20 08:01 Dose: 2 patch Documented by: Magnesium Hydroxide (Milk Of Magnesia 30 Ml Oral.Susp) 30 ml PO DAILY PRN PRN Reason: Constipation Last Admin: 12/19/20 06:06 Dose: 30 ml Documented by: Nicotine (Nicotine 21 Mg Patch.Td24) 21 mg TRANSDERMA DAILY [facility] Last Admin: 12/20/20 08:01 Dose: 21 mg Documented by: Nicotine Polacrilex (Nicotine Polacrilex 2 Mg Gum) 2 mg BUCCAL Q2H PRN PRN Reason: Nicotine Cravings Last Admin: 12/20/20 15:17 Dose: 2 mg Documented by: Quetiapine Fumarate (Quetiapine Fumarate 100 Mg Tablet) 100 mg PO TID [facility] Last Admin: 12/20/20 15:12 Dose: 100 mg Documented by: Quetiapine Fumarate (Quetiapine Fumarate 50 Mg Tablet) 50 mg PO Q4H PRN PRN Reason: anxiety/agitation Last Admin: 12/20/20 16:51 Dose: 50 mg Documented by: Trazodone HCl (Trazodone Hcl 100 Mg Tablet) 100 mg PO BEDTIME PRN PRN Reason: Insomnia Last Admin: 12/19/20 21:52 Dose: 100 mg Documented by: Allergies Allergies Allergy/AdvReac Type Severity Reaction Status Date / Time No Known Allergies Allergy Unverified 11/13/19 18:30 seasonal Allergy Unknown Uncoded 10/08/17 00:00 Assessment & Plan Assessment & Plan (1) Cocaine use disorder, moderate, dependence: Status: Acute Code(s): F14.20 - Cocaine dependence, uncomplicated (2) PTSD (post-traumatic stress disorder): Status: Acute Code(s): F43.10 - Post-traumatic stress disorder, unspecified Assessment and Plan: Mr. Baumann is a 40 year-old male with hx of cocaine use, PTSD who self presented to [facility] ED reporting increase CAH telling him to OD on Opioids and cocaine. In the ED, his utox was positive for cocaine. Pt reports in past 2 weeks, increasingly more agitated in setting of cocaine use, nightmares related to past trauma. We discussed risks, benefits and alternative treatment options. Pt reports he ahs been on seroquel with limited efficacy for voices. He agrees to start Olanzapine. He also agrees to start clonidine for anxiety. PLAN 1. Admit to M3 2. Switch olanzapine for seroquel for severe anxious mood 3. increase clonidine 0.1mg po TID, hold if SBP <90 for anxious mood/sleep/nightmares 4. Start remeron 15mg po qhs sleep/increase dose for antidepressant effect. 5. obtain collateral information 6. Aftercare planning. 12/19/20: Trial dose of Thorazine 50 mg and assess. 12/21: Discontinue remeron due to apparent lack of benefit for sleep. Initiate trial of doxepin 25 mg QHS. Will increase clonidine to 0.2 mg TID, as pt's BP has also been elevated and he is endorsing sx of hyperarousal, flashbacks, and nightmares. Discussed propranolol as option if he does not notice benefit on increased dose. I spent minutes with the patient and/or on the patient floor today, greater than?50% of which was spent counseling/coordinating care. Patient educated on: medication risk/benefits Reason for contiued inpatient stay Substantial Risk for: harm to self and med/psych decompensation
[2020-12-20 18:44] VITALS: BP 167/97; PULSE 96
[2020-12-20] MEDS: cloNIDine HCL 0.2 MG TABLET PO ×2 (18:44→21:27)
[2020-12-20] MEDS: Doxepin HCl 25 MG CAPSULE PO (18:44)
[2020-12-20 21:27] VITALS: BP 140/92; PULSE 89
--- NOTE | 2020-12-20 21:30 | PC.NURSE ---
Pt. took new dose of clonidine 0.2mg at 1844. He continues to report inability to sleep. Clonidine 0.2mg is scheduled for 2100 administration. BP is 152/84, HR82. Pt. to take clonidine 0.2mg as scheduled at HS per Sameera Snyder NP. BP at time of administration was 140/82, HR 89.
[2020-12-21] MEDS: QUEtiapine Fumarate 50 MG TABLET PO ×2 (00:37→04:38)
[2020-12-21] MEDS: Ibuprofen 600 MG TABLET PO (00:37)
[2020-12-21] MEDS: hydrOXYzine HCL 50 MG TABLET PO (00:37)
[2020-12-21] MEDS: traZODone HCL 100 MG TABLET PO (00:37)
[2020-12-21] MEDS: Acetaminophen 325 MG TABLET 650 MG PO ×3 (04:00→20:14)
[2020-12-21] MEDS: Nicotine Polacrilex 2 MG GUM BUCCAL ×3 (04:00→20:17)
[2020-12-21 07:45] VITALS: BP 119/88; PULSE 68; RESP 18; TEMP 36.5; O2SAT 99
[2020-12-21] MEDS: QUEtiapine Fumarate 100 MG TABLET PO ×3 (08:02→21:41)
[2020-12-21] MEDS: Gabapentin 300 MG CAPSULE 900 MG PO ×3 (08:02→20:14)
[2020-12-21 08:04] VITALS: BP 119/88; PULSE 68
[2020-12-21] MEDS: cloNIDine HCL 0.2 MG TABLET PO ×3 (08:04→21:40)
[2020-12-21] MEDS: Nicotine 21 MG PATCH.TD24 TRANSDERMA (08:04)
[2020-12-21] MEDS: Lidocaine 4 % Patch ADH..PATCH 2 PATCH TRANSDERMA (08:04)
[2020-12-21 14:11] VITALS: BP 149/82; PULSE 82
--- NOTE | 2020-12-21 16:18 | HO.PSYCHPN ---
Subjective Subjective Date of Service: 12/21/20 Reason For Visit: Major Depressive D/O Subjective Notes: Conditional Voluntary Interim History: Patient seen and discussed with team. Pt continues to experience difficulty sleeping at night. He reports sleeping only 2-3 hrs. He wakes up with nightmares, hypervigilance, very anxious. He reports feeling as if someone is after him related to past trauma. He reports feeling slightly calmer during the day but reports that when alone in his room he hears voices telling him he is not worth it. He denies SI/HI. However, he reports feeling very anxious, hopeless at times when he thinks he won't get better in terms of anxiety and lack of sleep. We discussed increasingly seroquel, and doxepine. Per nursing, he has been visible in the unit. No behavioral concerns. Medication Compliance: Yes Review of Systems Constitutional: Reports headache(s), Reports poor appetite and Reports weakness Eyes: Reports floaters Reports headache(s) Cardiovascular: Denies chest pain, Denies chest pain at rest, Denies chest pain with activity, Denies diaphoresis, Denies syncope, Denies rapid heart rate, Denies irregular heart rhythm, Denies lightheadedness and Denies radiating jaw, neck or arm pain Respiratory: Denies chest congestion, Denies hemoptysis, Denies pain on inspiration and Denies pain with cough Gastrointestinal: Denies constipation, Denies diarrhea, Denies loose stools and Denies nausea Musculoskeletal: Reports back pain (chronic) Denies syncope, Reports headache(s) and Reports weakness Mental Status Exam Mental Status Exam Narrative: Appearance: casually groomed, fair hygiene in NAD Behavior:cooperative psychomotor: no agitation or retardation noted Speech:clear, normal rate/rhythm/volume, spontaneous Thought process: linear, perseverative Thought content:no signs of psychosis, future oriented, wanting to get better Mood: anxious Affect: congruent, non labile SI:denies HI:denies VH/AH:AH telling him he is worthless, seeing some shadows Delusions:none Insight/judgment:fair x 2. Memory/cog: alert, oriented x 3. grossly intact to conversational testing. Diagnostics Vital Signs (24Hr): Vital Signs - 24 hr 12/20/20 18:00 12/20/20 18:44 12/20/20 21:27 Temperature 97.9 F Pulse Rate 82 96 89 Respiratory Rate 20 Blood Pressure 152/84 H 167/97 H 140/92 H Pulse Oximetry 97 12/21/20 07:45 12/21/20 08:04 12/21/20 14:11 Temperature 97.7 F Pulse Rate 68 68 82 Respiratory Rate 18 Blood Pressure 119/88 119/88 149/82 H Pulse Oximetry 99 Labs Results: 12/15/20 08:19 12/15/20 08:19 Medications Medications Current Medications Acetaminophen (Acetaminophen 325 Mg Tablet) 650 mg PO Q6H PRN PRN Reason: Headache/Pain Mild Scale (1-3) Last Admin: 12/21/20 11:35 Dose: 650 mg Documented by: Al Hydroxide/Mg Hydroxide (Magnesium Hydrox/Alum Hydrox 30 Ml Oral.Susp) 30 ml PO Q6H PRN PRN Reason: Heartburn/Nausea Clonidine HCl (Clonidine Hcl 0.2 Mg Tablet) 0.2 mg PO TID [facility]; Protocol Last Admin: 12/21/20 14:11 Dose: 0.2 mg Documented by: Doxepin HCl (Doxepin Hcl 25 Mg Capsule) 50 mg PO BEDTIME [facility] Gabapentin (Gabapentin 300 Mg Capsule) 900 mg PO TID [facility] Last Admin: 12/21/20 14:13 Dose: 900 mg Documented by: Hydroxyzine HCl (Hydroxyzine Hcl 50 Mg Tablet) 50 mg PO Q6H PRN PRN Reason: Anxiety Last Admin: 12/21/20 00:37 Dose: 50 mg Documented by: Ibuprofen (Ibuprofen 600 Mg Tablet) 600 mg PO Q6H PRN PRN Reason: Pain, Moderate (Pain Scale 4-6 Last Admin: 12/21/20 00:37 Dose: 600 mg Documented by: Lidocaine (Lidocaine 4 % Patch Adh..Patch) 2 patch TRANSDERMA DAILY [facility]; Protocol Last Admin: 12/21/20 08:04 Dose: 2 patch Documented by: Magnesium Hydroxide (Milk Of Magnesia 30 Ml Oral.Susp) 30 ml PO DAILY PRN PRN Reason: Constipation Last Admin: 12/19/20 06:06 Dose: 30 ml Documented by: Nicotine (Nicotine 21 Mg Patch.Td24) 21 mg TRANSDERMA DAILY [facility] Last Admin: 12/21/20 08:04 Dose: 21 mg Documented by: Nicotine Polacrilex (Nicotine Polacrilex 2 Mg Gum) 2 mg BUCCAL Q2H PRN PRN Reason: Nicotine Cravings Last Admin: 12/21/20 09:37 Dose: 2 mg Documented by: Quetiapine Fumarate (Quetiapine Fumarate 50 Mg Tablet) 50 mg PO Q4H PRN PRN Reason: anxiety/agitation Last Admin: 12/21/20 04:38 Dose: 50 mg Documented by: Quetiapine Fumarate (Quetiapine Fumarate 100 Mg Tablet) 100 mg PO TID [facility] Trazodone HCl (Trazodone Hcl 100 Mg Tablet) 100 mg PO BEDTIME PRN PRN Reason: Insomnia Last Admin: 12/21/20 00:37 Dose: 100 mg Documented by: Allergies Allergies Allergy/AdvReac Type Severity Reaction Status Date / Time No Known Allergies Allergy Unverified 11/13/19 18:30 seasonal Allergy Unknown Uncoded 10/08/17 00:00 Assessment & Plan Assessment & Plan (1) Cocaine use disorder, moderate, dependence: Status: Acute Code(s): F14.20 - Cocaine dependence, uncomplicated (2) PTSD (post-traumatic stress disorder): Status: Acute Code(s): F43.10 - Post-traumatic stress disorder, unspecified Assessment and Plan: Mr. Baumann is a 40 year-old male with hx of cocaine use, PTSD who self presented to [facility] ED reporting increase CAH telling him to OD on Opioids and cocaine. In the ED, his utox was positive for cocaine. Pt reports in past 2 weeks, increasingly more agitated in setting of cocaine use, nightmares related to past trauma. We discussed risks, benefits and alternative treatment options. Pt reports he ahs been on seroquel with limited efficacy for voices. He agrees to start Olanzapine. He also agrees to start clonidine for anxiety. PLAN 1. Admit to M3 2. Increase seroquel 100mg po BID and 300mg po qhs for severe anxious mood 3. Continue clonidine 0.2mg po TID, hold if SBP <90 for anxious mood/sleep/nightmares 4. Increase doxepine to 50mg po qhs. 5. obtain collateral information 6. Aftercare planning. I spent minutes with the patient and/or on the patient floor today, greater than?50% of which was spent counseling/coordinating care. Reason for contiued inpatient stay Substantial Risk for: harm to self
[2020-12-21 18:00] VITALS: BP 135/81; PULSE 85; RESP 18; TEMP 36.6; O2SAT 97
[2020-12-21 21:40] VITALS: BP 135/81; PULSE 85
[2020-12-21] MEDS: QUEtiapine Fumarate 200 MG TABLET PO (21:41)
[2020-12-21] MEDS: Doxepin HCl 25 MG CAPSULE 50 MG PO (21:41)
[2020-12-22] MEDS: QUEtiapine Fumarate 50 MG TABLET PO (01:31)
[2020-12-22] MEDS: Ibuprofen 600 MG TABLET PO ×2 (05:18→15:26)
[2020-12-22] MEDS: Nicotine Polacrilex 2 MG GUM BUCCAL ×3 (05:19→23:47)
[2020-12-22] MEDS: hydrOXYzine HCL 50 MG TABLET PO (06:19)
[2020-12-22 08:00] VITALS: BP 140/90; PULSE 84; RESP 18; TEMP 36.8; O2SAT 100
[2020-12-22] MEDS: Nicotine 21 MG PATCH.TD24 TRANSDERMA (08:13)
[2020-12-22] MEDS: Gabapentin 300 MG CAPSULE 900 MG PO ×3 (08:14→21:22)
[2020-12-22 08:15] VITALS: BP 140/90; PULSE 84
[2020-12-22] MEDS: cloNIDine HCL 0.2 MG TABLET PO (08:15)
[2020-12-22] MEDS: QUEtiapine Fumarate 100 MG TABLET PO (08:15)
[2020-12-22] MEDS: Lidocaine 4 % Patch ADH..PATCH 2 PATCH TRANSDERMA (08:16)
--- NOTE | 2020-12-22 11:15 | HO.PSYCHPN ---
Subjective Subjective Date of Service: 12/22/20 Reason For Visit: Major Depressive D/O Subjective Notes: Conditional Voluntary Interim History: Pt reports feeling increasingly more anxious. He reports difficulty sleeping- note that difficulty sleeping not solemnly related to nightmares, which pt reports has had for several years and sleep significantly worsened in past 3 weeks. Pt reports feeling exhausted, restless sense of anxiety that pt reports is worsening with medications- mainly suspect underlying akathisia with seroquel, which tends to worsen at night. Pt reports internal sense of anxiety, which is worsening with medication, suspect mainly seroquel. Medication Compliance: Yes Side effects from medications: Yes (akathisia with seroquel) Attending Groups: Yes Review of Systems Acute medical concerns: No Mental Status Exam Mental Status Exam Narrative: Appearance: casually groomed, fair hygiene in NAD Behavior:cooperative psychomotor: no agitation or retardation noted Speech:clear, normal rate/rhythm/volume, spontaneous Thought process: linear, perseverative Thought content:no signs of psychosis, future oriented, wanting to get better Mood: anxious Affect: congruent, non labile SI:denies HI:denies VH/AH:AH telling him he is worthless, seeing some shadows Delusions:none Insight/judgment:fair x 2. Memory/cog: alert, oriented x 3. grossly intact to conversational testing. Diagnostics Vital Signs (24Hr): Vital Signs - 24 hr 12/21/20 14:11 12/21/20 18:00 12/21/20 21:40 Temperature 98 F Pulse Rate 82 85 85 Respiratory Rate 18 Blood Pressure 149/82 H 135/81 135/81 Pulse Oximetry 97 12/22/20 08:00 12/22/20 08:15 Temperature 98.2 F Pulse Rate 84 84 Respiratory Rate 18 Blood Pressure 140/90 H 140/90 H Pulse Oximetry 100 Labs Results: 12/15/20 08:19 12/15/20 08:19 Medications Medications Current Medications Acetaminophen (Acetaminophen 325 Mg Tablet) 650 mg PO Q6H PRN PRN Reason: Headache/Pain Mild Scale (1-3) Last Admin: 12/21/20 20:14 Dose: 650 mg Documented by: Al Hydroxide/Mg Hydroxide (Magnesium Hydrox/Alum Hydrox 30 Ml Oral.Susp) 30 ml PO Q6H PRN PRN Reason: Heartburn/Nausea Clonazepam (Clonazepam 1 Mg Tablet) 2 mg PO ONCE ONE Stop: 12/22/20 11:14 Clonidine HCl (Clonidine Hcl 0.1 Mg Tablet) 0.1 mg PO BID [facility]; Protocol Doxepin HCl (Doxepin Hcl 25 Mg Capsule) 50 mg PO BEDTIME [facility] Last Admin: 12/21/20 21:41 Dose: 50 mg Documented by: Gabapentin (Gabapentin 300 Mg Capsule) 900 mg PO TID [facility] Last Admin: 12/22/20 08:14 Dose: 900 mg Documented by: Hydroxyzine HCl (Hydroxyzine Hcl 50 Mg Tablet) 50 mg PO Q6H PRN PRN Reason: Anxiety Last Admin: 12/22/20 06:19 Dose: 50 mg Documented by: Ibuprofen (Ibuprofen 600 Mg Tablet) 600 mg PO Q6H PRN PRN Reason: Pain, Moderate (Pain Scale 4-6 Last Admin: 12/22/20 05:18 Dose: 600 mg Documented by: Lidocaine (Lidocaine 4 % Patch Adh..Patch) 2 patch TRANSDERMA DAILY [facility]; Protocol Last Admin: 12/22/20 08:16 Dose: 2 patch Documented by: Magnesium Hydroxide (Milk Of Magnesia 30 Ml Oral.Susp) 30 ml PO DAILY PRN PRN Reason: Constipation Last Admin: 12/19/20 06:06 Dose: 30 ml Documented by: Nicotine (Nicotine 21 Mg Patch.Td24) 21 mg TRANSDERMA DAILY [facility] Last Admin: 12/22/20 08:13 Dose: 21 mg Documented by: Nicotine Polacrilex (Nicotine Polacrilex 2 Mg Gum) 2 mg BUCCAL Q2H PRN PRN Reason: Nicotine Cravings Last Admin: 12/22/20 05:19 Dose: 2 mg Documented by: Quetiapine Fumarate (Quetiapine Fumarate 50 Mg Tablet) 50 mg PO Q4H PRN PRN Reason: anxiety/agitation Last Admin: 12/22/20 01:31 Dose: 50 mg Documented by: Trazodone HCl (Trazodone Hcl 100 Mg Tablet) 100 mg PO BEDTIME PRN PRN Reason: Insomnia Last Admin: 12/21/20 00:37 Dose: 100 mg Documented by: Allergies Allergies Allergy/AdvReac Type Severity Reaction Status Date / Time No Known Allergies Allergy Unverified 11/13/19 18:30 seasonal Allergy Unknown Uncoded 10/08/17 00:00 Assessment & Plan Assessment & Plan (1) Cocaine use disorder, moderate, dependence: Status: Acute Code(s): F14.20 - Cocaine dependence, uncomplicated (2) PTSD (post-traumatic stress disorder): Status: Acute Code(s): F43.10 - Post-traumatic stress disorder, unspecified Assessment and Plan: Mr. Baumann is a 40 year-old male with hx of cocaine use, PTSD who self presented to [facility] ED reporting increase CAH telling him to OD on Opioids and cocaine. In the ED, his utox was positive for cocaine. Pt reports in past 2 weeks, increasingly more agitated in setting of cocaine use, nightmares related to past trauma. We discussed risks, benefits and alternative treatment options. PLAN 1. Admit to M3 2. D/C seroquel- suspect akathisia, worsening of anxious mood/severe sense of restlessness, which pt notes has worsened. Akathisia- will give one time dose of clonazepam 2mg, we discussed propanolol- discussed risk of increase CVA with use of cocaine and beta blockers, pt reports he does not regularly uses cocaine. 3. decrease clonidine 0.1mg po BID (limited therapeutic effect), hold if SBP <90 for anxious mood/sleep/nightmares 4. Continue doxepine to 50mg po qhs. 5. obtain collateral information 6. Aftercare planning. I spent minutes with the patient and/or on the patient floor today, greater than?50% of which was spent counseling/coordinating care. Reason for contiued inpatient stay Substantial Risk for: harm to self
[2020-12-22] MEDS: clonazePAM 1 MG TABLET 2 MG PO ×2 (11:25→21:21)
[2020-12-22] MEDS: Acetaminophen 325 MG TABLET 650 MG PO ×2 (13:03→21:21)
[2020-12-22] MEDS: Cyproheptadine HCl 4 MG TABLET PO (18:20)
--- NOTE | 2020-12-22 19:21 | PC.NURSE ---
AT 11:25 am today patient was prescribed and took clonazepam 2mg po - a one time dose - for agitation with good effect. At 530 pm Martin asked this nurse about what medications were prescribed for him at bedtime. I reviewed the medication changes made by Ivy Zimmerman today. He stated the changes made were not those discussed. He became agitated, insisting that he would be unable to sleep tonight due to the medication changes. I attempted to educate patient about those meds prescribed and the elimination of seroquel (because Ivy Zimmerman [employer] thinks it is causing akasthesia therefore negatively effecting patient's sleep. He became perseverative, stating repeatedly, She lied to me He reports that antipsychotics i.e. thorazine and seroquel make him agitated. He notes ativan is not helpful. I feel nothing. He threatened to cause a problem. I have an itch to do something to get a shot. I explained that if ativan is not helpful and antipsychotics make him agitated a medication restraint would be unlikely to help him sleep. At 6:20pm Patient received periactin 4mg one time dose with no effect for agitation. Patient states he will only take gabapentin at bedtime. I encouraged patient to take the HS clonazepam. In addition, patient stated he will sign a 3 day notice tomorrow and overdose when he gets out because, I'd rather that not sleep
[2020-12-22 21:22] VITALS: BP 160/96; PULSE 89
[2020-12-22] MEDS: Doxepin HCl 25 MG CAPSULE 50 MG PO (21:22)
[2020-12-22] MEDS: cloNIDine HCL 0.1 MG TABLET PO (21:22)
[2020-12-22] MEDS: traZODone HCL 100 MG TABLET PO (21:23)
[2020-12-22 21:27] VITALS: BP 160/96; PULSE 89; TEMP 36.9; O2SAT 100
--- NOTE | 2020-12-23 00:30 | PC.NURSE ---
On 12/22/20 patient was placed on 5 minute checks by nursing decision at 1625 and removed at 2245 and placed back on 15 minute checks. Patient was angry and upset at the time but has maintained behavioral control.
[2020-12-23] MEDS: Nicotine Polacrilex 2 MG GUM BUCCAL ×2 (02:55→17:14)
[2020-12-23] MEDS: Ibuprofen 600 MG TABLET PO (05:50)
[2020-12-23] MEDS: hydrOXYzine HCL 50 MG TABLET PO ×2 (05:50→17:16)
[2020-12-23] MEDS: LORazepam 2 MG/ML VIAL IM ×2 (07:57→13:57)
[2020-12-23 08:00] VITALS: BP 158/93; PULSE 83; RESP 16; TEMP 36.9; O2SAT 97
[2020-12-23 08:27] VITALS: BP 158/93; PULSE 83
[2020-12-23] MEDS: cloNIDine HCL 0.1 MG TABLET PO ×2 (08:27→22:50)
[2020-12-23] MEDS: Nicotine 21 MG PATCH.TD24 TRANSDERMA (08:27)
[2020-12-23] MEDS: Gabapentin 300 MG CAPSULE 900 MG PO ×3 (08:28→22:50)
[2020-12-23] MEDS: Acetaminophen 325 MG TABLET 650 MG PO ×2 (08:28→17:14)
--- NOTE | 2020-12-23 10:22 | P.PNPSI_ITS ---
Subjective Subjective Date of Service: 12/23/20 Reason For Visit: Major Depressive D/O Subjective Notes: Conditional Voluntary Interim History: Pt reports less restlessness after d/c of seroquel and doxepin which were causing akathisia, however, clonazepam did not provide much sedation so pt did not sleep last night once again. He was given Ativan 2mg IM this morn ing, and he was able to sleep for about 3.5 hrs. Pt reports feeling slightly calmer. He continues to report nightmares, waking up anxious but not as restless as he was before. We discussed that medications causing akathisia not completely out of his system due to their half life. Pt reports feeling tired, somewhat hopeless, no plan or intent to hurt himself. Pt today has been finally getting some rest in bed. Medication Compliance: Yes Side effects from medications: No Review of Systems Constitutional: Reports headache(s), Reports poor appetite and Reports weakness Eyes: Reports floaters Reports headache(s) Cardiovascular: Denies chest pain, Denies chest pain at rest, Denies chest pain with activity, Denies diaphoresis, Denies syncope, Denies rapid heart rate, Denies irregular heart rhythm, Denies lightheadedness and Denies radiating jaw, neck or arm pain Respiratory: Denies chest congestion, Denies hemoptysis, Denies pain on inspiration and Denies pain with cough Gastrointestinal: Denies constipation, Denies diarrhea, Denies loose stools and Denies nausea Musculoskeletal: Reports back pain (chronic) Denies syncope, Reports headache(s) and Reports weakness Mental Status Exam Mental Status Exam Narrative: Appearance: casually groomed, fair hygiene in NAD Behavior:cooperative psychomotor: no agitation or retardation noted Speech:clear, normal rate/rhythm/volume, spontaneous Thought process: linear, perseverative Thought content:no signs of psychosis, future oriented, wanting to get better Mood: anxious Affect: congruent, non labile SI:denies HI:denies VH/AH:AH telling him he is worthless, seeing some shadows Delusions:none Insight/judgment:fair x 2. Memory/cog: alert, oriented x 3. grossly intact to conversational testing. Diagnostics Vital Signs (24Hr): Vital Signs - 24 hr 12/24/20 18:00 12/24/20 22:30 12/25/20 06:00 Temperature 97.8 F 98.4 F Pulse Rate 94 106 H 92 Respiratory Rate 18 16 Blood Pressure 164/96 H 167/96 H 133/90 H Pulse Oximetry 99 99 12/25/20 08:27 Temperature Pulse Rate 92 Respiratory Rate Blood Pressure 133/90 H Pulse Oximetry Labs Results: 12/15/20 08:19 12/15/20 08:19 Medications Medications Current Medications Acetaminophen (Acetaminophen 325 Mg Tablet) 650 mg PO Q6H PRN PRN Reason: Headache/Pain Mild Scale (1-3) Last Admin: 12/25/20 08:25 Dose: 650 mg Documented by: Al Hydroxide/Mg Hydroxide (Magnesium Hydrox/Alum Hydrox 30 Ml Oral.Susp) 30 ml PO Q6H PRN PRN Reason: Heartburn/Nausea Amlodipine Besylate (Amlodipine Besylate 2.5 Mg Tablet) 2.5 mg PO DAILY [facility]; Protocol Last Admin: 12/25/20 08:27 Dose: 2.5 mg Documented by: Benztropine Mesylate (Benztropine Mesylate 1 Mg Tablet) 1 mg PO BID [facility] Last Admin: 12/25/20 08:58 Dose: 1 mg Documented by: Docosanol (Docosanol 10 % Cream 2 Gm Tube) 1 appl TOPICAL 5XD [facility]; Protocol Last Admin: 12/25/20 08:56 Dose: 1 appl Documented by: Gabapentin (Gabapentin 300 Mg Capsule) 900 mg PO TID [facility] Last Admin: 12/25/20 08:27 Dose: 900 mg Documented by: Hydroxyzine HCl (Hydroxyzine Hcl 50 Mg Tablet) 50 mg PO Q4H PRN PRN Reason: Anxiety/sleep Last Admin: 12/25/20 04:46 Dose: 50 mg Documented by: Ibuprofen (Ibuprofen 600 Mg Tablet) 600 mg PO Q6H PRN PRN Reason: Pain, Moderate (Pain Scale 4-6 Last Admin: 12/25/20 06:09 Dose: 600 mg Documented by: Lidocaine (Lidocaine 4 % Patch Adh..Patch) 2 patch TRANSDERMA DAILY [facility]; Protocol Last Admin: 12/25/20 08:43 Dose: 2 patch Documented by: Lorazepam (Lorazepam 2 Mg/Ml Vial) 2 mg IM DAILY PRN PRN Reason: severe anxiety Last Admin: 12/23/20 13:57 Dose: 2 mg Documented by: Lorazepam (Lorazepam 1 Mg Tablet) 2 mg PO BEDTIME [facility] Last Admin: 12/24/20 20:10 Dose: 2 mg Documented by: Magnesium Hydroxide (Milk Of Magnesia 30 Ml Oral.Susp) 30 ml PO DAILY PRN PRN Reason: Constipation Last Admin: 12/19/20 06:06 Dose: 30 ml Documented by: Nicotine (Nicotine 21 Mg Patch.Td24) 21 mg TRANSDERMA DAILY [facility] Last Admin: 12/25/20 08:24 Dose: 21 mg Documented by: Nicotine Polacrilex (Nicotine Polacrilex 2 Mg Gum) 2 mg BUCCAL Q2H PRN PRN Reason: Nicotine Cravings Last Admin: 12/25/20 02:53 Dose: 2 mg Documented by: Polyethylene Glycol (Polyethylene Glycol 3350 17 Gm Powd.Pack) 17 gm PO DAILY [facility] Last Admin: 12/25/20 08:23 Dose: 17 gm Documented by: Prazosin HCl (Prazosin Hcl 1 Mg Capsule) 2 mg PO BEDTIME [facility]; Protocol Last Admin: 12/24/20 22:30 Dose: 2 mg Documented by: Risperidone (Risperidone 0.5 Mg Tablet) 0.5 mg PO BID [facility] Last Admin: 12/25/20 06:08 Dose: 0.5 mg Documented by: Senna/Docusate Sodium (Sennosides/Docusate Sodium Tablet) 2 tab PO BEDTIME [facility] Last Admin: 12/24/20 22:31 Dose: 2 tab Documented by: Trazodone HCl (Trazodone Hcl 100 Mg Tablet) 200 mg PO BEDTIME PRN PRN Reason: Insomnia Allergies Allergies Allergy/AdvReac Type Severity Reaction Status Date / Time No Known Allergies Allergy Unverified 11/13/19 18:30 seasonal Allergy Unknown Uncoded 10/08/17 00:00 Assessment & Plan Assessment & Plan (1) Cocaine use disorder, moderate, dependence: Status: Acute Code(s): F14.20 - Cocaine dependence, uncomplicated (2) PTSD (post-traumatic stress disorder): Status: Acute Code(s): F43.10 - Post-traumatic stress disorder, unspecified Assessment and Plan: Mr. Baumann is a 40 year-old male with hx of cocaine use, PTSD who self presented to [facility] ED reporting increase CAH telling him to OD on Opioids and cocaine. In the ED, his utox was positive for cocaine. Pt reports in past 2 weeks, increasingly more agitated in setting of cocaine use, nightmares related to past trauma. We discussed risks, benefits and alternative treatment options. PLAN 1. Admit to M3 2. D/C seroquel- suspect akathisia, worsening of anxious mood/severe sense of restlessness, which pt notes has worsened. Akathisia- will give ativan 2mg po qhs instead of clonazepam. Start cogentin 1mg po BID- will try to regulate sleep/ mood without control substance by time of d/c given hx of cocaine use. 3. Switch clonidine to prazosin 2mg po qhs Hold if SBP<90 for anxious mood/sleep/nightmares . 4. D/C doxepine to 50mg po qhs- as do suspect also contributing to akathisia and not effective. 5. obtain collateral information 6. Aftercare planning. I spent minutes with the patient and/or on the patient floor today, greater than?50% of which was spent counseling/coordinating care. Reason for contiued inpatient stay Substantial Risk for: harm to self
[2020-12-23] MEDS: Lidocaine 4 % Patch ADH..PATCH 2 PATCH TRANSDERMA (13:53)
[2020-12-23] MEDS: docosanoL 10 % Cream 2 GM TUBE 1 APPL TOPICAL ×2 (18:00→22:52)
[2020-12-23 22:45] VITALS: BP 146/96; PULSE 99; TEMP 36.6; O2SAT 95
[2020-12-23 22:50] VITALS: BP 146/96; PULSE 99
[2020-12-23] MEDS: Benztropine Mesylate 1 MG TABLET PO (22:50)
[2020-12-23] MEDS: traZODone HCL 100 MG TABLET PO (22:51)
[2020-12-23] MEDS: LORazepam 1 MG TABLET 2 MG PO (22:52)
[2020-12-24] MEDS: hydrOXYzine HCL 50 MG TABLET PO ×3 (01:38→17:06)
[2020-12-24 06:00] VITALS: BP 144/86; PULSE 83; RESP 18; TEMP 36.9; O2SAT 98
[2020-12-24] MEDS: Nicotine Polacrilex 2 MG GUM BUCCAL ×3 (06:45→23:57)
[2020-12-24] MEDS: Nicotine 21 MG PATCH.TD24 TRANSDERMA (08:11)
[2020-12-24] MEDS: cloNIDine HCL 0.1 MG TABLET PO (08:11)
[2020-12-24] MEDS: Benztropine Mesylate 1 MG TABLET PO ×2 (08:11→22:31)
[2020-12-24] MEDS: Gabapentin 300 MG CAPSULE 900 MG PO ×3 (08:11→22:31)
[2020-12-24] MEDS: Lidocaine 4 % Patch ADH..PATCH 2 PATCH TRANSDERMA (08:12)
--- NOTE | 2020-12-24 10:29 | P.PNPSI_ITS ---
Subjective Subjective Date of Service: 12/24/20 Reason For Visit: Major Depressive D/O Subjective Notes: Conditional Voluntary Interim History: Pt was able to sleep about 6 hrs of sleep last night, added to 5 hrs of sleep he had during the day. This morning, pt presents as much calmer, much rested. He does continue to report hearing some voices at times, and having nightmares. He reports feeling less overwhelmed, anxious and less hopeless. He denies any plan or intent to hurt himself or others. Pt does get triggered by security given past hx of trauma, hx of incarceration. Overall he reports he is not feeling like crawling out of my skin as he was which I suspect was due to akathisia. Medication Compliance: Yes Side effects from medications: No Review of Systems Constitutional: Reports headache(s), Reports poor appetite and Reports weakness Eyes: Reports floaters Reports headache(s) Cardiovascular: Denies chest pain, Denies chest pain at rest, Denies chest pain with activity, Denies diaphoresis, Denies syncope, Denies rapid heart rate, Denies irregular heart rhythm, Denies lightheadedness and Denies radiating jaw, neck or arm pain Respiratory: Denies chest congestion, Denies hemoptysis, Denies pain on inspiration and Denies pain with cough Gastrointestinal: Denies constipation, Denies diarrhea, Denies loose stools and Denies nausea Musculoskeletal: Reports back pain (chronic) Denies syncope, Reports headache(s) and Reports weakness Mental Status Exam Mental Status Exam Narrative: Appearance: casually groomed, fair hygiene in NAD Behavior:cooperative psychomotor: no agitation or retardation noted Speech:clear, normal rate/rhythm/volume, spontaneous Thought process: linear, perseverative Thought content:no signs of psychosis, future oriented, wanting to get better Mood: anxious Affect: congruent, non labile SI:denies HI:denies VH/AH:AH telling him he is worthless, seeing some shadows Delusions:none Insight/judgment:fair x 2. Memory/cog: alert, oriented x 3. grossly intact to conversational testing. Diagnostics Vital Signs (24Hr): Vital Signs - 24 hr 12/24/20 18:00 12/24/20 22:30 12/25/20 06:00 Temperature 97.8 F 98.4 F Pulse Rate 94 106 H 92 Respiratory Rate 18 16 Blood Pressure 164/96 H 167/96 H 133/90 H Pulse Oximetry 99 99 12/25/20 08:27 Temperature Pulse Rate 92 Respiratory Rate Blood Pressure 133/90 H Pulse Oximetry Labs Results: 12/15/20 08:19 12/15/20 08:19 Medications Medications Current Medications Acetaminophen (Acetaminophen 325 Mg Tablet) 650 mg PO Q6H PRN PRN Reason: Headache/Pain Mild Scale (1-3) Last Admin: 12/25/20 08:25 Dose: 650 mg Documented by: Al Hydroxide/Mg Hydroxide (Magnesium Hydrox/Alum Hydrox 30 Ml Oral.Susp) 30 ml PO Q6H PRN PRN Reason: Heartburn/Nausea Amlodipine Besylate (Amlodipine Besylate 2.5 Mg Tablet) 2.5 mg PO DAILY COUNTS INCLUDE 234 BEDS AT THE [facility]; Protocol Last Admin: 12/25/20 08:27 Dose: 2.5 mg Documented by: Benztropine Mesylate (Benztropine Mesylate 1 Mg Tablet) 1 mg PO BID COUNTS INCLUDE 234 BEDS AT THE [facility] Last Admin: 12/25/20 08:58 Dose: 1 mg Documented by: Docosanol (Docosanol 10 % Cream 2 Gm Tube) 1 appl TOPICAL 5XD COUNTS INCLUDE 234 BEDS AT THE [facility]; Protocol Last Admin: 12/25/20 08:56 Dose: 1 appl Documented by: Gabapentin (Gabapentin 300 Mg Capsule) 900 mg PO TID COUNTS INCLUDE 234 BEDS AT THE [facility] Last Admin: 12/25/20 08:27 Dose: 900 mg Documented by: Hydroxyzine HCl (Hydroxyzine Hcl 50 Mg Tablet) 50 mg PO Q4H PRN PRN Reason: Anxiety/sleep Last Admin: 12/25/20 04:46 Dose: 50 mg Documented by: Ibuprofen (Ibuprofen 600 Mg Tablet) 600 mg PO Q6H PRN PRN Reason: Pain, Moderate (Pain Scale 4-6 Last Admin: 12/25/20 06:09 Dose: 600 mg Documented by: Lidocaine (Lidocaine 4 % Patch Adh..Patch) 2 patch TRANSDERMA DAILY COUNTS INCLUDE 234 BEDS AT THE [facility]; Protocol Last Admin: 12/25/20 08:43 Dose: 2 patch Documented by: Lorazepam (Lorazepam 2 Mg/Ml Vial) 2 mg IM DAILY PRN PRN Reason: severe anxiety Last Admin: 12/23/20 13:57 Dose: 2 mg Documented by: Lorazepam (Lorazepam 1 Mg Tablet) 2 mg PO BEDTIME COUNTS INCLUDE 234 BEDS AT THE [facility] Last Admin: 12/24/20 20:10 Dose: 2 mg Documented by: Magnesium Hydroxide (Milk Of Magnesia 30 Ml Oral.Susp) 30 ml PO DAILY PRN PRN Reason: Constipation Last Admin: 12/19/20 06:06 Dose: 30 ml Documented by: Nicotine (Nicotine 21 Mg Patch.Td24) 21 mg TRANSDERMA DAILY COUNTS INCLUDE 234 BEDS AT THE [facility] Last Admin: 12/25/20 08:24 Dose: 21 mg Documented by: Nicotine Polacrilex (Nicotine Polacrilex 2 Mg Gum) 2 mg BUCCAL Q2H PRN PRN Reason: Nicotine Cravings Last Admin: 12/25/20 02:53 Dose: 2 mg Documented by: Polyethylene Glycol (Polyethylene Glycol 3350 17 Gm Powd.Pack) 17 gm PO DAILY COUNTS INCLUDE 234 BEDS AT THE [facility] Last Admin: 12/25/20 08:23 Dose: 17 gm Documented by: Prazosin HCl (Prazosin Hcl 1 Mg Capsule) 2 mg PO BEDTIME [facility]; Protocol Last Admin: 12/24/20 22:30 Dose: 2 mg Documented by: Risperidone (Risperidone 0.5 Mg Tablet) 0.5 mg PO BID COUNTS INCLUDE 234 BEDS AT THE [facility] Last Admin: 12/25/20 06:08 Dose: 0.5 mg Documented by: Senna/Docusate Sodium (Sennosides/Docusate Sodium Tablet) 2 tab PO BEDTIME [facility] Last Admin: 12/24/20 22:31 Dose: 2 tab Documented by: Trazodone HCl (Trazodone Hcl 100 Mg Tablet) 200 mg PO BEDTIME PRN PRN Reason: Insomnia Allergies Allergies Allergy/AdvReac Type Severity Reaction Status Date / Time No Known Allergies Allergy Unverified 11/13/19 18:30 seasonal Allergy Unknown Uncoded 10/08/17 00:00 Assessment & Plan Assessment & Plan (1) Cocaine use disorder, moderate, dependence: Status: Acute Code(s): F14.20 - Cocaine dependence, uncomplicated (2) PTSD (post-traumatic stress disorder): Status: Acute Code(s): F43.10 - Post-traumatic stress disorder, unspecified Assessment and Plan: Mr. Baumann is a 40 year-old male with hx of cocaine use, PTSD who self presented to [facility] ED reporting increase CAH telling him to OD on Opioids and cocaine. In the ED, his utox was positive for cocaine. Pt reports in past 2 weeks, increasingly more agitated in setting of cocaine use, nightmares related to past trauma. We discussed risks, benefits and alternative treatment options. PLAN 1. Admit to M3 2. D/C seroquel- suspect akathisia, worsening of anxious mood/severe sense of restlessness, which pt notes has worsened during hospital course. Akathisia- improving, continue ativan 2mg po qhs. Continue cogentin 1mg po BID- will try to regulate sleep/ mood without control substance by time of d/c given hx of cocaine use. 3. Prazosin 2mg po qhs started on 12/24, Hold if SBP<90 for anxious mood/sleep/nightmares. clonidine d/c 4. D/C doxepine to 50mg po qhs- as do suspect also contributing to akathisia and not effective. 5. Start risperidone 0.5mg po BID for voices 6. Amlodipine 2.5mg po daily for HTN 5. Obtain collateral information 6. Aftercare planning. I spent minutes with the patient and/or on the patient floor today, greater than?50% of which was spent counseling/coordinating care. Reason for contiued inpatient stay Substantial Risk for: harm to self
[2020-12-24] MEDS: amLODIPine Besylate 2.5 MG TABLET PO (14:13)
[2020-12-24] MEDS: polyethylene glycoL 3350 17 GM POWD.PACK PO (14:13)
[2020-12-24] MEDS: risperiDONE 0.5 MG TABLET PO ×2 (14:13→22:30)
[2020-12-24] MEDS: Ibuprofen 600 MG TABLET PO (17:06)
[2020-12-24 18:00] VITALS: BP 164/96; PULSE 94; RESP 18; TEMP 36.6; O2SAT 99
[2020-12-24] MEDS: LORazepam 1 MG TABLET 2 MG PO (20:10)
[2020-12-24] MEDS: Acetaminophen 325 MG TABLET 650 MG PO (20:10)
[2020-12-24 22:30] VITALS: BP 167/96; PULSE 106
[2020-12-24] MEDS: Prazosin HCL 1 MG CAPSULE 2 MG PO (22:30)
[2020-12-24] MEDS: Sennosides/Docusate Sodium TABLET 2 TAB PO (22:31)
[2020-12-24] MEDS: docosanoL 10 % Cream 2 GM TUBE 1 APPL TOPICAL (23:12)
[2020-12-25] MEDS: Melatonin 3 MG TABLET 6 MG PO (02:46)
[2020-12-25] MEDS: LORazepam 1 MG TABLET 2 MG PO (02:47)
[2020-12-25] MEDS: diphenhydrAMINE HCL 25 MG TABLET 50 MG PO (02:47)
[2020-12-25] MEDS: Nicotine Polacrilex 2 MG GUM BUCCAL ×3 (02:53→22:13)
[2020-12-25] MEDS: hydrOXYzine HCL 50 MG TABLET PO ×2 (04:46→22:13)
[2020-12-25 06:00] VITALS: BP 133/90; PULSE 92; RESP 16; TEMP 36.9; O2SAT 99
[2020-12-25] MEDS: risperiDONE 0.5 MG TABLET PO ×2 (06:08→20:49)
[2020-12-25] MEDS: Ibuprofen 600 MG TABLET PO (06:09)
--- NOTE | 2020-12-25 07:12 | PC.NURSE ---
At 0030 pt had a shower pt state he was not going to bed and would stay in kitchen all night. at 0045 pt fell asleep in the kitchen, woke up 0200. Pt stated stating I can't sleep Nothings works Refused prns offered at the time. banging wall, when asked to stop by PC per pc pt stated am gonna wake every body up, what are you going to do about it? security was called, charge nurse contacted doctor nurse order for [id number], [id number], Benadryl 50mg at 0245. After pt took medication stated I am going to stay here, am not going to bed pt folded clothes in kitchen, showered and sat out in kitchen , noticed to be visibly fighting sleep. . at 0530 pt observed sleeping in kitchen. waking up at times when doors opened and closed. Currently sleeping on and off in kitchen.
[2020-12-25] MEDS: docosanoL 10 % Cream 2 GM TUBE 1 APPL TOPICAL ×5 (07:22→20:54)
[2020-12-25] MEDS: polyethylene glycoL 3350 17 GM POWD.PACK PO (08:23)
[2020-12-25] MEDS: Nicotine 21 MG PATCH.TD24 TRANSDERMA (08:24)
[2020-12-25] MEDS: Acetaminophen 325 MG TABLET 650 MG PO (08:25)
[2020-12-25 08:27] VITALS: BP 133/90; PULSE 92
[2020-12-25] MEDS: Gabapentin 300 MG CAPSULE 900 MG PO ×3 (08:27→20:48)
[2020-12-25] MEDS: amLODIPine Besylate 2.5 MG TABLET PO (08:27)
[2020-12-25] MEDS: Lidocaine 4 % Patch ADH..PATCH 2 PATCH TRANSDERMA (08:43)
[2020-12-25] MEDS: Benztropine Mesylate 1 MG TABLET PO ×2 (08:58→20:50)
[2020-12-25 13:08] VITALS: BP 154/97; PULSE 94
[2020-12-25] MEDS: Prazosin HCL 1 MG CAPSULE PO ×2 (13:08→15:36)
[2020-12-25 15:36] VITALS: BP 158/84; PULSE 94
--- NOTE | 2020-12-25 16:32 | HO.PSYCHPN ---
Subjective Subjective Date of Service: 12/25/20 Reason For Visit: Major Depressive D/O Interim History: pt quite intense, stating he did not sleep at all last night and wants help to sleep. feeling he has not been heard by provider here, saying he can't sleep every day and not feeling like he has been given enough help to sleep. explains the use of prazosin for nightmares and insomnia in PTSD - he endorses both Sx and carries the Dx - and pt agrees to titration and also addition of daytime dosing for help with chronic anxiety. MD also increases HS ativan to 3 mg to helkp with falling asleep. per staff, pt did not sleep last night. he slept 6 hours on . he escalated last night at 10 pm re his night medications. was yelling in the bear during evening shift. had conflict with peer yesterday morning. Mental Status Exam Mental Status Exam Narrative: Appearance: casually groomed, fair hygiene in NAD Behavior:cooperative psychomotor: no agitation or retardation noted Speech:clear, incr rate and volume, spontaneous Thought process: linear, perseverative Thought content:no signs of psychosis, future oriented, wanting to get better Mood: anxious Affect: congruent, non labile VH/AH:AH telling him he is worthless, seeing some shadows Delusions:none Memory/cog: alert, oriented x 3. grossly intact to conversational testing. Diagnostics Vital Signs (24Hr): Vital Signs - 24 hr 12/24/20 18:00 12/24/20 22:30 12/25/20 06:00 Temperature 97.8 F 98.4 F Pulse Rate 94 106 H 92 Respiratory Rate 18 16 Blood Pressure 164/96 H 167/96 H 133/90 H Pulse Oximetry 99 99 12/25/20 08:27 12/25/20 13:08 12/25/20 15:36 Temperature Pulse Rate 92 94 94 Respiratory Rate Blood Pressure 133/90 H 154/97 H 158/84 H Pulse Oximetry Labs Results: 12/15/20 08:19 12/15/20 08:19 Medications Medications Current Medications Acetaminophen (Acetaminophen 325 Mg Tablet) 650 mg PO Q6H PRN PRN Reason: Headache/Pain Mild Scale (1-3) Last Admin: 12/25/20 08:25 Dose: 650 mg Documented by: Al Hydroxide/Mg Hydroxide (Magnesium Hydrox/Alum Hydrox 30 Ml Oral.Susp) 30 ml PO Q6H PRN PRN Reason: Heartburn/Nausea Amlodipine Besylate (Amlodipine Besylate 2.5 Mg Tablet) 2.5 mg PO DAILY [facility]; Protocol Last Admin: 12/25/20 08:27 Dose: 2.5 mg Documented by: Benztropine Mesylate (Benztropine Mesylate 1 Mg Tablet) 1 mg PO BID [facility] Last Admin: 12/25/20 08:58 Dose: 1 mg Documented by: Docosanol (Docosanol 10 % Cream 2 Gm Tube) 1 appl TOPICAL 5XD [facility]; Protocol Last Admin: 12/25/20 14:05 Dose: 1 appl Documented by: Gabapentin (Gabapentin 300 Mg Capsule) 900 mg PO TID [facility] Last Admin: 12/25/20 15:36 Dose: 900 mg Documented by: Hydroxyzine HCl (Hydroxyzine Hcl 50 Mg Tablet) 50 mg PO Q4H PRN PRN Reason: Anxiety/sleep Last Admin: 12/25/20 04:46 Dose: 50 mg Documented by: Ibuprofen (Ibuprofen 600 Mg Tablet) 600 mg PO Q6H PRN PRN Reason: Pain, Moderate (Pain Scale 4-6 Last Admin: 12/25/20 06:09 Dose: 600 mg Documented by: Lidocaine (Lidocaine 4 % Patch Adh..Patch) 2 patch TRANSDERMA DAILY [facility]; Protocol Last Admin: 12/25/20 08:43 Dose: 2 patch Documented by: Lorazepam (Lorazepam 2 Mg/Ml Vial) 2 mg IM DAILY PRN PRN Reason: severe anxiety Last Admin: 12/23/20 13:57 Dose: 2 mg Documented by: Lorazepam (Lorazepam 1 Mg Tablet) 3 mg PO BEDTIME [facility] Magnesium Hydroxide (Milk Of Magnesia 30 Ml Oral.Susp) 30 ml PO DAILY PRN PRN Reason: Constipation Last Admin: 12/19/20 06:06 Dose: 30 ml Documented by: Nicotine (Nicotine 21 Mg Patch.Td24) 21 mg TRANSDERMA DAILY [facility] Last Admin: 12/25/20 08:24 Dose: 21 mg Documented by: Nicotine Polacrilex (Nicotine Polacrilex 2 Mg Gum) 2 mg BUCCAL Q2H PRN PRN Reason: Nicotine Cravings Last Admin: 12/25/20 02:53 Dose: 2 mg Documented by: Polyethylene Glycol (Polyethylene Glycol 3350 17 Gm Powd.Pack) 17 gm PO DAILY [facility] Last Admin: 12/25/20 08:23 Dose: 17 gm Documented by: Prazosin HCl (Prazosin Hcl 1 Mg Capsule) 4 mg PO BEDTIME [facility]; Protocol Prazosin HCl (Prazosin Hcl 1 Mg Capsule) 1 mg PO DAILY [facility]; Protocol Prazosin HCl (Prazosin Hcl 1 Mg Capsule) 1 mg PO DAILY@1500 [facility]; Protocol Last Admin: 12/25/20 15:36 Dose: 1 mg Documented by: Risperidone (Risperidone 0.5 Mg Tablet) 0.5 mg PO BID [facility] Last Admin: 12/25/20 06:08 Dose: 0.5 mg Documented by: Senna/Docusate Sodium (Sennosides/Docusate Sodium Tablet) 2 tab PO BEDTIME [facility] Last Admin: 12/24/20 22:31 Dose: 2 tab Documented by: Trazodone HCl (Trazodone Hcl 100 Mg Tablet) 200 mg PO BEDTIME PRN PRN Reason: Insomnia Allergies Allergies Allergy/AdvReac Type Severity Reaction Status Date / Time No Known Allergies Allergy Unverified 11/13/19 18:30 seasonal Allergy Unknown Uncoded 10/08/17 00:00 Assessment & Plan Assessment & Plan (1) Cocaine use disorder, moderate, dependence: Status: Acute Code(s): F14.20 - Cocaine dependence, uncomplicated (2) PTSD (post-traumatic stress disorder): Status: Acute Code(s): F43.10 - Post-traumatic stress disorder, unspecified Assessment and Plan: Mr. Baumann is a 40 year-old male with hx of cocaine use, PTSD who self presented to [facility] ED reporting increase CAH telling him to OD on Opioids and cocaine. In the ED, his utox was positive for cocaine. Pt reports in past 2 weeks, increasingly more agitated in setting of cocaine use, nightmares related to past trauma. We discussed risks, benefits and alternative treatment options. PLAN 1. Admit to M3 2. D/C seroquel- suspect akathisia, worsening of anxious mood/severe sense of restlessness, which pt notes has worsened during hospital course. Akathisia- improving, continue ativan 2mg po qhs. Continue cogentin 1mg po BID- will try to regulate sleep/ mood without control substance by time of d/c given hx of cocaine use. 3. Prazosin 2mg po qhs started on 12/24, Hold if SBP<90 for anxious mood/sleep/nightmares. clonidine d/c 4. D/C doxepine to 50mg po qhs- as do suspect also contributing to akathisia and not effective. 5. Start risperidone 0.5mg po BID for voices 6. Amlodipine 2.5mg po daily for HTN 5. Obtain collateral information 6. Aftercare planning. 12/25: HS ativan increased to 3 mg, prazosin increased to 4 mg at HS, 1 mg in the am, and 1 mg at 3 pm. I spent minutes with the patient and/or on the patient floor today, greater than?50% of which was spent counseling/coordinating care. Reason for contiued inpatient stay Substantial Risk for: inability to function and rapid decompensation
[2020-12-25 18:00] VITALS: BP 141/87; PULSE 103; RESP 18; TEMP 36.8; O2SAT 98
[2020-12-25 20:49] VITALS: BP 141/87; PULSE 103
[2020-12-25] MEDS: Prazosin HCL 1 MG CAPSULE 4 MG PO (20:49)
[2020-12-25] MEDS: Sennosides/Docusate Sodium TABLET 2 TAB PO (20:50)
[2020-12-25] MEDS: LORazepam 1 MG TABLET 3 MG PO (20:50)
[2020-12-26] MEDS: hydrOXYzine HCL 50 MG TABLET PO ×2 (02:26→15:48)
[2020-12-26] MEDS: Nicotine Polacrilex 2 MG GUM BUCCAL ×3 (05:45→18:46)
[2020-12-26 06:00] VITALS: BP 158/92; PULSE 82; RESP 18; TEMP 36.8; O2SAT 98
[2020-12-26] MEDS: Lidocaine 4 % Patch ADH..PATCH 2 PATCH TRANSDERMA (11:06)
[2020-12-26] MEDS: Nicotine 21 MG PATCH.TD24 TRANSDERMA (11:06)
[2020-12-26] MEDS: Benztropine Mesylate 1 MG TABLET PO ×2 (11:07→21:27)
[2020-12-26] MEDS: amLODIPine Besylate 2.5 MG TABLET PO (11:07)
[2020-12-26] MEDS: risperiDONE 0.5 MG TABLET PO ×2 (11:08→21:27)
[2020-12-26] MEDS: Prazosin HCL 1 MG CAPSULE PO ×2 (11:08→12:46)
[2020-12-26] MEDS: Gabapentin 300 MG CAPSULE 900 MG PO ×3 (11:08→21:24)
[2020-12-26 12:46] VITALS: BP 145/94; PULSE 110
[2020-12-26] MEDS: docosanoL 10 % Cream 2 GM TUBE 1 APPL TOPICAL ×4 (12:46→21:56)
[2020-12-26 15:48] VITALS: BP 140/90; PULSE 102
[2020-12-26] MEDS: Prazosin HCL 1 MG CAPSULE 2 MG PO (15:48)
[2020-12-26] MEDS: Acetaminophen 325 MG TABLET 650 MG PO (15:49)
[2020-12-26 18:00] VITALS: BP 142/98; PULSE 90; RESP 16; TEMP 35.9; O2SAT 96
[2020-12-26] MEDS: Ibuprofen 600 MG TABLET PO (18:46)
--- NOTE | 2020-12-26 18:54 | HO.PSYCHPN ---
Subjective Subjective Date of Service: 12/26/20 Reason For Visit: Major Depressive D/O Interim History: pt appears quite happy this morning, reports he slept last night. observed on the phone, took a shower. met with MD late morning. states the daytime prazosin helped him for about an hour. and he slept a couple of times for an hour or so, spending much of his time awake until 0630, then slept from 0630 to 11. BP remains elevated. agreeable to increase his prazosin regimen from to . per staff, singing and dancing on the unit yesterday, giving out his telephone number to women, made some sexual gestures with his tongue/mouth toward night nurse. seemed euphoric to staff in the [id number] time range. irritable at 0600. Mental Status Exam Mental Status Exam Narrative: Appearance: casually groomed, good hygiene in NAD Behavior:cooperative psychomotor: no agitation or retardation noted Speech:clear, incr rate and volume, spontaneous Thought process: linear, perseverative Thought content:no signs of psychosis, future oriented, wanting to get better Mood: improved Affect: congruent, non labile VH/AH: none reported Delusions:none Memory/cog: alert, oriented x 3. grossly intact to conversational testing. Diagnostics Vital Signs (24Hr): Vital Signs - 24 hr 12/25/20 20:49 12/26/20 06:00 12/26/20 12:46 Temperature 98.2 F Pulse Rate 103 H 82 110 H Respiratory Rate 18 Blood Pressure 141/87 H 158/92 H 145/94 H Pulse Oximetry 98 12/26/20 15:48 Temperature Pulse Rate 102 H Respiratory Rate Blood Pressure 140/90 H Pulse Oximetry Labs Results: 12/15/20 08:19 12/15/20 08:19 Medications Medications Current Medications Acetaminophen (Acetaminophen 325 Mg Tablet) 650 mg PO Q6H PRN PRN Reason: Headache/Pain Mild Scale (1-3) Last Admin: 12/26/20 15:49 Dose: 650 mg Documented by: Al Hydroxide/Mg Hydroxide (Magnesium Hydrox/Alum Hydrox 30 Ml Oral.Susp) 30 ml PO Q6H PRN PRN Reason: Heartburn/Nausea Amlodipine Besylate (Amlodipine Besylate 2.5 Mg Tablet) 2.5 mg PO DAILY [facility]; Protocol Last Admin: 12/26/20 11:07 Dose: 2.5 mg Documented by: Benztropine Mesylate (Benztropine Mesylate 1 Mg Tablet) 1 mg PO BID [facility] Last Admin: 12/26/20 11:07 Dose: 1 mg Documented by: Docosanol (Docosanol 10 % Cream 2 Gm Tube) 1 appl TOPICAL 5XD [facility]; Protocol Last Admin: 12/26/20 18:45 Dose: 1 appl Documented by: Gabapentin (Gabapentin 300 Mg Capsule) 900 mg PO TID [facility] Last Admin: 12/26/20 15:48 Dose: 900 mg Documented by: Hydroxyzine HCl (Hydroxyzine Hcl 50 Mg Tablet) 50 mg PO Q4H PRN PRN Reason: Anxiety/sleep Last Admin: 12/26/20 15:48 Dose: 50 mg Documented by: Ibuprofen (Ibuprofen 600 Mg Tablet) 600 mg PO Q6H PRN PRN Reason: Pain, Moderate (Pain Scale 4-6 Last Admin: 12/26/20 18:46 Dose: 600 mg Documented by: Lidocaine (Lidocaine 4 % Patch Adh..Patch) 2 patch TRANSDERMA DAILY [facility]; Protocol Last Admin: 12/26/20 11:06 Dose: 2 patch Documented by: Lorazepam (Lorazepam 2 Mg/Ml Vial) 2 mg IM DAILY PRN PRN Reason: severe anxiety Last Admin: 12/23/20 13:57 Dose: 2 mg Documented by: Lorazepam (Lorazepam 1 Mg Tablet) 3 mg PO BEDTIME [facility] Last Admin: 12/25/20 20:50 Dose: 3 mg Documented by: Magnesium Hydroxide (Milk Of Magnesia 30 Ml Oral.Susp) 30 ml PO DAILY PRN PRN Reason: Constipation Last Admin: 12/19/20 06:06 Dose: 30 ml Documented by: Nicotine (Nicotine 21 Mg Patch.Td24) 21 mg TRANSDERMA DAILY [facility] Last Admin: 12/26/20 11:06 Dose: 21 mg Documented by: Nicotine Polacrilex (Nicotine Polacrilex 2 Mg Gum) 2 mg BUCCAL Q2H PRN PRN Reason: Nicotine Cravings Last Admin: 12/26/20 18:46 Dose: 2 mg Documented by: Polyethylene Glycol (Polyethylene Glycol 3350 17 Gm Powd.Pack) 17 gm PO DAILY [facility] Last Admin: 12/26/20 11:08 Dose: Not Given Documented by: Prazosin HCl (Prazosin Hcl 1 Mg Capsule) 2 mg PO DAILY [facility]; Protocol Prazosin HCl (Prazosin Hcl 1 Mg Capsule) 2 mg PO DAILY@1500 [facility]; Protocol Last Admin: 12/26/20 15:48 Dose: 2 mg Documented by: Prazosin HCl (Prazosin Hcl 1 Mg Capsule) 6 mg PO BEDTIME [facility]; Protocol Risperidone (Risperidone 0.5 Mg Tablet) 0.5 mg PO BID [facility] Last Admin: 12/26/20 11:08 Dose: 0.5 mg Documented by: Senna/Docusate Sodium (Sennosides/Docusate Sodium Tablet) 2 tab PO BEDTIME [facility] Last Admin: 12/25/20 20:50 Dose: 2 tab Documented by: Trazodone HCl (Trazodone Hcl 100 Mg Tablet) 200 mg PO BEDTIME PRN PRN Reason: Insomnia Allergies Allergies Allergy/AdvReac Type Severity Reaction Status Date / Time No Known Allergies Allergy Unverified 11/13/19 18:30 seasonal Allergy Unknown Uncoded 10/08/17 00:00 Assessment & Plan Assessment & Plan (1) Cocaine use disorder, moderate, dependence: Status: Acute Code(s): F14.20 - Cocaine dependence, uncomplicated (2) PTSD (post-traumatic stress disorder): Status: Acute Code(s): F43.10 - Post-traumatic stress disorder, unspecified Assessment and Plan: Mr. Baumann is a 40 year-old male with hx of cocaine use, PTSD who self presented to [facility] ED reporting increase CAH telling him to OD on Opioids and cocaine. In the ED, his utox was positive for cocaine. Pt reports in past 2 weeks, increasingly more agitated in setting of cocaine use, nightmares related to past trauma. We discussed risks, benefits and alternative treatment options. PLAN 1. Admit to M3 2. D/C seroquel- suspect akathisia, worsening of anxious mood/severe sense of restlessness, which pt notes has worsened during hospital course. Akathisia- improving, continue ativan 2mg po qhs. Continue cogentin 1mg po BID- will try to regulate sleep/mood without control substance by time of d/c given hx of cocaine use. 3. Prazosin 2mg po qhs started on 12/24, Hold if SBP<90 for anxious mood/sleep/nightmares. clonidine d/c. dosing increased to 4 and then 6 mg QHS as of 12/26. likewise daytime prazosin started at 1 mg daily and Q3pm, dosing increased to 2 mg daily and Q3 pm as of 12/26. some relief from anxiety and possibly some more sleep related to increased prazosin dosing. 4. D/Mason doxepine to 50mg po qhs- as do suspect also contributing to akathisia and not effective. 5. Started risperidone 0.5mg po BID for voices 6. Amlodipine 2.5mg po daily for HTN 5. Obtain collateral information 6. Aftercare planning. I spent minutes with the patient and/or on the patient floor today, greater than?50% of which was spent counseling/coordinating care. Reason for contiued inpatient stay Substantial Risk for: harm to self, inability to function and rapid decompensation
[2020-12-26 21:28] VITALS: BP 142/98; PULSE 90
[2020-12-26] MEDS: Prazosin HCL 1 MG CAPSULE 6 MG PO (21:28)
[2020-12-26] MEDS: LORazepam 1 MG TABLET 3 MG PO (21:28)
[2020-12-26] MEDS: Sennosides/Docusate Sodium TABLET 2 TAB PO (21:28)
[2020-12-26 23:59] VITALS: BP 149/94; PULSE 95; RESP 20; TEMP 36.4; O2SAT 94
[2020-12-27] VITALS (9 sets, daily range): BP systolic 136–167; BP diastolic 88–114; PULSE 84–107; RESP 18; TEMP 36.6; O2SAT 99
[2020-12-27] MEDS: hydrOXYzine HCL 50 MG TABLET PO ×3 (01:33→18:50)
[2020-12-27] MEDS: Magnesium Hydrox/Alum Hydrox 30 ML ORAL.SUSP PO ×2 (01:33→08:04)
[2020-12-27] MEDS: Acetaminophen 325 MG TABLET 650 MG PO (04:27)
[2020-12-27] MEDS: docosanoL 10 % Cream 2 GM TUBE 1 APPL TOPICAL ×3 (05:10→22:10)
[2020-12-27] MEDS: Promethazine HCL 25 MG TABLET PO (05:31)
--- NOTE | 2020-12-27 05:53 | PC.NURSE ---
Patient is awake and visibly anxious with tremors to bilateral upper and lower extremities; reporting high levels of anxiety. Patient is reporting nausea and vomiting; requesting crackers and [place]. Patient administered Hydroxyzine 50mg and Maalox at approx 1:30am. Patient provided warm compress and heated blankets and encouraged to try to sleep. Patient resting comfortably in bed from 1:45am-3:55am. Patient awakens again reporting heightened anxiety, headache and continued nausea and vomiting; witnessed by staff. Patient administered Tylenol for headache at 4:30am with minimal effect, Hydroxyzine for anxiety and Promethazine for Nausea and vomiting at 5:30am. Patient sitting up in Kitchen quietly. Will continue to monitor.
[2020-12-27] MEDS: Nicotine Polacrilex 2 MG GUM BUCCAL ×3 (06:13→19:35)
[2020-12-27] MEDS: Prazosin HCL 1 MG CAPSULE 2 MG PO (08:05)
[2020-12-27] MEDS: amLODIPine Besylate 2.5 MG TABLET PO (08:08)
[2020-12-27] MEDS: Benztropine Mesylate 1 MG TABLET PO ×2 (08:08→22:04)
[2020-12-27] MEDS: risperiDONE 0.5 MG TABLET PO ×2 (08:08→22:05)
[2020-12-27] MEDS: Gabapentin 300 MG CAPSULE 900 MG PO ×3 (08:08→22:05)
[2020-12-27] MEDS: Lidocaine 4 % Patch ADH..PATCH 2 PATCH TRANSDERMA (08:09)
[2020-12-27] MEDS: Nicotine 21 MG PATCH.TD24 TRANSDERMA (08:09)
--- NOTE | 2020-12-27 09:25 | HO.PSYCHPN ---
Subjective Subjective Date of Service: 12/27/20 Reason For Visit: Major Depressive D/O Subjective Notes: Conditional Voluntary Interim History: Per nursing, pt had several episodes of emesis at night. Pt reports vomiting waking him up. He reports slightly less anxious mood but continues to feel anxious during the day. He reports feeling less depressed. He does worried about ongoing sleep and not being able to do so. He denies SI/HI. Pt visible in the unit, attends groups. No behavioral concerns. Medication Compliance: Yes Side effects from medications: No Attending Groups: Yes Review of Systems Acute medical concerns: No Review of Systems Constitutional: Reports headache(s), Reports poor appetite and Reports weakness Eyes: Reports floaters Reports headache(s) Cardiovascular: Denies chest pain, Denies chest pain at rest, Denies chest pain with activity, Denies diaphoresis, Denies syncope, Denies rapid heart rate, Denies irregular heart rhythm, Denies lightheadedness and Denies radiating jaw, neck or arm pain Respiratory: Denies chest congestion, Denies hemoptysis, Denies pain on inspiration and Denies pain with cough Gastrointestinal: Denies constipation, Denies diarrhea, Denies loose stools and Denies nausea Musculoskeletal: Reports back pain (chronic) Denies syncope, Reports headache(s) and Reports weakness Mental Status Exam Mental Status Exam Narrative: Appearance: casually groomed, good hygiene in NAD Behavior:cooperative psychomotor: no agitation or retardation noted Speech:clear, incr rate and volume, spontaneous Thought process: linear, perseverative Thought content:no signs of psychosis, future oriented, wanting to get better Mood: improved Affect: congruent, non labile VH/AH: none reported Delusions:none Memory/cog: alert, oriented x 3. grossly intact to conversational testing. Diagnostics Vital Signs (24Hr): Vital Signs - 24 hr 12/26/20 18:00 12/26/20 21:28 12/26/20 23:59 Temperature 96.6 F L 97.5 F Pulse Rate 90 90 95 Respiratory Rate 16 20 Blood Pressure 142/98 H 142/98 H 149/94 H Pulse Oximetry 96 94 12/27/20 08:00 12/27/20 08:05 12/27/20 08:08 Temperature 98 F Pulse Rate 88 88 88 Respiratory Rate Blood Pressure 167/97 H 167/97 H 167/97 H Pulse Oximetry 12/27/20 12:23 12/27/20 16:29 12/27/20 17:23 Temperature 97.9 F Pulse Rate 107 H 84 86 Respiratory Rate Blood Pressure 165/114 H 160/98 H 136/97 H Pulse Oximetry Labs Results: 12/15/20 08:19 12/15/20 08:19 Labs: Laboratory Results - last 48 hr 12/27/20 11:41 Magnesium 2.6 Medications Medications Current Medications Acetaminophen (Acetaminophen 325 Mg Tablet) 650 mg PO Q6H PRN PRN Reason: Headache/Pain Mild Scale (1-3) Last Admin: 12/27/20 04:27 Dose: 650 mg Documented by: Al Hydroxide/Mg Hydroxide (Magnesium Hydrox/Alum Hydrox 30 Ml Oral.Susp) 30 ml PO Q6H PRN PRN Reason: Heartburn/Nausea Last Admin: 12/27/20 08:04 Dose: 30 ml Documented by: Amlodipine Besylate (Amlodipine Besylate 2.5 Mg Tablet) 2.5 mg PO DAILY [facility]; Protocol Last Admin: 12/27/20 08:08 Dose: 2.5 mg Documented by: Benztropine Mesylate (Benztropine Mesylate 1 Mg Tablet) 1 mg PO BID CINDI Last Admin: 12/27/20 08:08 Dose: 1 mg Documented by: Docosanol (Docosanol 10 % Cream 2 Gm Tube) 1 appl TOPICAL 5XD [facility]; Protocol Last Admin: 12/27/20 16:38 Dose: Not Given Documented by: Gabapentin (Gabapentin 300 Mg Capsule) 900 mg PO TID [facility] Last Admin: 12/27/20 14:58 Dose: 900 mg Documented by: Hydroxyzine HCl (Hydroxyzine Hcl 50 Mg Tablet) 50 mg PO Q4H PRN PRN Reason: Anxiety/sleep Last Admin: 12/27/20 05:31 Dose: 50 mg Documented by: Ibuprofen (Ibuprofen 600 Mg Tablet) 600 mg PO Q6H PRN PRN Reason: Pain, Moderate (Pain Scale 4-6 Last Admin: 12/26/20 18:46 Dose: 600 mg Documented by: Lidocaine (Lidocaine 4 % Patch Adh..Patch) 2 patch TRANSDERMA DAILY [facility]; Protocol Last Admin: 12/27/20 08:09 Dose: 2 patch Documented by: Lorazepam (Lorazepam 2 Mg/Ml Vial) 2 mg IM DAILY PRN PRN Reason: severe anxiety Last Admin: 12/23/20 13:57 Dose: 2 mg Documented by: Lorazepam (Lorazepam 1 Mg Tablet) 2 mg PO BEDTIME [facility] Magnesium Hydroxide (Milk Of Magnesia 30 Ml Oral.Susp) 30 ml PO DAILY PRN PRN Reason: Constipation Last Admin: 12/19/20 06:06 Dose: 30 ml Documented by: Nicotine (Nicotine 21 Mg Patch.Td24) 7 mg TRANSDERMA DAILY C[facility]I Nicotine Polacrilex (Nicotine Polacrilex 2 Mg Gum) 2 mg BUCCAL Q2H PRN PRN Reason: Nicotine Cravings Last Admin: 12/27/20 14:58 Dose: 2 mg Documented by: Ondansetron HCl (Ondansetron Odt 4 Mg Tab.Rapdis) 4 mg TRANSLINGU Q6H PRN PRN Reason: Nausea Polyethylene Glycol (Polyethylene Glycol 3350 17 Gm Powd.Pack) 17 gm PO DAILY [facility] Last Admin: 12/27/20 08:30 Dose: Not Given Documented by: Prazosin HCl (Prazosin Hcl 1 Mg Capsule) 5 mg PO BEDTIME [facility]; Protocol Propranolol HCl (Propranolol Hcl 10 Mg Tablet) 5 mg PO BID [facility]; Protocol Last Admin: 12/27/20 12:23 Dose: 5 mg Documented by: Risperidone (Risperidone 0.5 Mg Tablet) 0.5 mg PO BID CINDI Last Admin: 12/27/20 08:08 Dose: 0.5 mg Documented by: Senna/Docusate Sodium (Sennosides/Docusate Sodium Tablet) 2 tab PO BEDTIME CINDI Last Admin: 12/26/20 21:28 Dose: 2 tab Documented by: Trazodone HCl (Trazodone Hcl 100 Mg Tablet) 200 mg PO BEDTIME PRN PRN Reason: Insomnia Allergies Allergies Allergy/AdvReac Type Severity Reaction Status Date / Time No Known Allergies Allergy Unverified 11/13/19 18:30 seasonal Allergy Unknown Uncoded 10/08/17 00:00 Assessment & Plan Assessment & Plan (1) Cocaine use disorder, moderate, dependence: Status: Acute Code(s): F14.20 - Cocaine dependence, uncomplicated (2) PTSD (post-traumatic stress disorder): Status: Acute Code(s): F43.10 - Post-traumatic stress disorder, unspecified Assessment and Plan: Mr. Baumann is a 40 year-old male with hx of cocaine use, PTSD who self presented to [facility] ED reporting increase CAH telling him to OD on Opioids and cocaine. In the ED, his utox was positive for cocaine. Pt reports in past 2 weeks, increasingly more agitated in setting of cocaine use, nightmares related to past trauma. We discussed risks, benefits and alternative treatment options. PLAN 1. Admit to M3 2. D/C seroquel- suspect akathisia, worsening of anxious mood/severe sense of restlessness, which pt notes has worsened during hospital course. Akathisia- improving, continue ativan 2mg po qhs. Continue cogentin 1mg po BID- will try to regulate sleep/mood without control substance by time of d/c given hx of cocaine use. Start propanolol 5mg po BID. 3. decrease Prazosin 5mg po qhs started on 12/27, Hold if SBP<90 for anxious mood/sleep/nightmares. clonidine d/c. 4. D/Mason doxepine to 50mg po qhs- as do suspect also contributing to akathisia and not effective. 5. Started risperidone 0.5mg po BID for voices 6. Amlodipine 2.5mg po daily for HTN 5. Obtain collateral information 6. Aftercare planning. I spent minutes with the patient and/or on the patient floor today, greater than?50% of which was spent counseling/coordinating care. Reason for contiued inpatient stay Substantial Risk for: harm to self
[2020-12-27 12:03] LABS: Magnesium 2.6 mg/dL (1.6-2.6)
[2020-12-27] MEDS: Propranolol HCL 10 MG TABLET 5 MG PO ×2 (12:23→22:05)
[2020-12-27] MEDS: LORazepam 1 MG TABLET 2 MG PO (20:06)
[2020-12-27] MEDS: Sennosides/Docusate Sodium TABLET 2 TAB PO (22:05)
[2020-12-27] MEDS: Prazosin HCL 1 MG CAPSULE 5 MG PO (22:08)
[2020-12-28 06:00] VITALS: BP 164/76; PULSE 89; RESP 18; TEMP 36.6; O2SAT 96
[2020-12-28] MEDS: hydrOXYzine HCL 50 MG TABLET PO ×3 (07:51→19:10)
[2020-12-28] MEDS: docosanoL 10 % Cream 2 GM TUBE 1 APPL TOPICAL ×2 (07:59→22:54)
[2020-12-28] MEDS: Lidocaine 4 % Patch ADH..PATCH 2 PATCH TRANSDERMA (08:00)
[2020-12-28 08:01] VITALS: BP 164/76; PULSE 89
[2020-12-28] MEDS: Gabapentin 300 MG CAPSULE 900 MG PO ×3 (08:01→22:20)
[2020-12-28] MEDS: Nicotine Polacrilex 2 MG GUM BUCCAL ×2 (08:01→18:32)
[2020-12-28] MEDS: amLODIPine Besylate 2.5 MG TABLET PO (08:01)
[2020-12-28] MEDS: risperiDONE 0.5 MG TABLET PO ×2 (08:02→12:18)
[2020-12-28] MEDS: Propranolol HCL 10 MG TABLET 5 MG PO (08:02)
[2020-12-28] MEDS: Benztropine Mesylate 1 MG TABLET PO ×2 (08:02→22:20)
[2020-12-28] MEDS: Nicotine 7 MG PATCH.TD24 TRANSDERMA (09:59)
--- NOTE | 2020-12-28 12:47 | HO.PSYCHPN ---
Subjective Subjective Date of Service: 12/28/20 Reason For Visit: Major Depressive D/O Subjective Notes: Conditional Voluntary Interim History: Pt reports sleeping better last night. He did report that usually at home he won't go to sleep until 1am and usually would sleep until noon. Pt reports feeling anxious because he does not go to sleep right away around 9pm when other are going to sleep. We discussed changing sleep pattern is difficult and does time and may not be goal of this admission. Overall, pt does report less sense of restlessness, not feeling like crawling out of his skin, some anxiety during the day. he reports taking showers to decrease anxious mood. He denies SI/HI. he reports less depressed mood. Per nursing, he slept 6hrs. Medication Compliance: Yes Review of Systems Constitutional: Reports headache(s), Reports poor appetite and Reports weakness Eyes: Reports floaters Reports headache(s) Cardiovascular: Denies chest pain, Denies chest pain at rest, Denies chest pain with activity, Denies diaphoresis, Denies syncope, Denies rapid heart rate, Denies irregular heart rhythm, Denies lightheadedness and Denies radiating jaw, neck or arm pain Respiratory: Denies chest congestion, Denies hemoptysis, Denies pain on inspiration and Denies pain with cough Gastrointestinal: Denies constipation, Denies diarrhea, Denies loose stools and Denies nausea Musculoskeletal: Reports back pain (chronic) Denies syncope, Reports headache(s) and Reports weakness Mental Status Exam Mental Status Exam Narrative: Appearance: casually groomed, good hygiene in NAD Behavior:cooperative psychomotor: no agitation or retardation noted Speech:clear, incr rate and volume, spontaneous Thought process: linear, perseverative Thought content:no signs of psychosis, future oriented, wanting to get better Mood: improved Affect: congruent, non labile VH/AH: none reported Delusions:none Memory/cog: alert, oriented x 3. grossly intact to conversational testing. Diagnostics Vital Signs (24Hr): Vital Signs - 24 hr 12/27/20 16:29 12/27/20 17:23 12/27/20 22:05 Temperature 97.9 F Pulse Rate 84 86 94 Respiratory Rate Blood Pressure 160/98 H 136/97 H 151/88 H Pulse Oximetry 12/27/20 22:08 12/27/20 22:10 12/28/20 06:00 Temperature 98 F 97.9 F Pulse Rate 95 95 89 Respiratory Rate 18 18 Blood Pressure 151/88 H 151/88 H 164/76 H Pulse Oximetry 99 96 12/28/20 08:01 Temperature Pulse Rate 89 Respiratory Rate Blood Pressure 164/76 H Pulse Oximetry Labs Results: 12/15/20 08:19 12/15/20 08:19 Labs: Laboratory Results - last 48 hr 12/27/20 11:41 Magnesium 2.6 Medications Medications Current Medications Acetaminophen (Acetaminophen 325 Mg Tablet) 650 mg PO Q6H PRN PRN Reason: Headache/Pain Mild Scale (1-3) Last Admin: 12/27/20 04:27 Dose: 650 mg Documented by: Al Hydroxide/Mg Hydroxide (Magnesium Hydrox/Alum Hydrox 30 Ml Oral.Susp) 30 ml PO Q6H PRN PRN Reason: Heartburn/Nausea Last Admin: 12/27/20 08:04 Dose: 30 ml Documented by: Amlodipine Besylate (Amlodipine Besylate 2.5 Mg Tablet) 2.5 mg PO DAILY [facility]; Protocol Last Admin: 12/28/20 08:01 Dose: 2.5 mg Documented by: Benztropine Mesylate (Benztropine Mesylate 1 Mg Tablet) 1 mg PO BID [facility] Last Admin: 12/28/20 08:02 Dose: 1 mg Documented by: Docosanol (Docosanol 10 % Cream 2 Gm Tube) 1 appl TOPICAL 5XD [facility]; Protocol Last Admin: 12/28/20 14:21 Dose: Not Given Documented by: Gabapentin (Gabapentin 300 Mg Capsule) 900 mg PO TID [facility] Last Admin: 12/28/20 15:10 Dose: 900 mg Documented by: Hydroxyzine HCl (Hydroxyzine Hcl 50 Mg Tablet) 50 mg PO Q4H PRN PRN Reason: Anxiety/sleep Last Admin: 12/28/20 15:10 Dose: 50 mg Documented by: Ibuprofen (Ibuprofen 600 Mg Tablet) 600 mg PO Q6H PRN PRN Reason: Pain, Moderate (Pain Scale 4-6 Last Admin: 12/28/20 15:12 Dose: 600 mg Documented by: Lidocaine (Lidocaine 4 % Patch Adh..Patch) 1 patch TRANSDERMA DAILY [facility]; Protocol Lorazepam (Lorazepam 2 Mg/Ml Vial) 2 mg IM DAILY PRN PRN Reason: severe anxiety Last Admin: 12/23/20 13:57 Dose: 2 mg Documented by: Lorazepam (Lorazepam 1 Mg Tablet) 2 mg PO BEDTIME CINDI Last Admin: 12/27/20 20:06 Dose: 2 mg Documented by: Magnesium Hydroxide (Milk Of Magnesia 30 Ml Oral.Susp) 30 ml PO DAILY PRN PRN Reason: Constipation Last Admin: 12/19/20 06:06 Dose: 30 ml Documented by: Nicotine Polacrilex (Nicotine Polacrilex 2 Mg Gum) 2 mg BUCCAL Q2H PRN PRN Reason: Nicotine Cravings Last Admin: 12/28/20 08:01 Dose: 2 mg Documented by: Ondansetron HCl (Ondansetron Odt 4 Mg Tab.Rapdis) 4 mg TRANSLINGU Q6H PRN PRN Reason: Nausea Polyethylene Glycol (Polyethylene Glycol 3350 17 Gm Powd.Pack) 17 gm PO DAILY [facility] Last Admin: 12/28/20 10:05 Dose: Not Given Documented by: Prazosin HCl (Prazosin Hcl 1 Mg Capsule) 3 mg PO BEDTIME [facility]; Protocol Propranolol HCl (Propranolol Hcl La 60 Mg Cap.Sa.24h) 40 mg PO BEDTIME [facility]; Protocol Risperidone (Risperidone 1 Mg Tablet) 1 mg PO BID [facility] Senna/Docusate Sodium (Sennosides/Docusate Sodium Tablet) 2 tab PO BEDTIME [facility]INDI Last Admin: 12/27/20 22:05 Dose: 2 tab Documented by: Trazodone HCl (Trazodone Hcl 100 Mg Tablet) 200 mg PO BEDTIME PRN PRN Reason: Insomnia Allergies Allergies Allergy/AdvReac Type Severity Reaction Status Date / Time No Known Allergies Allergy Unverified 11/13/19 18:30 seasonal Allergy Unknown Uncoded 10/08/17 00:00 Assessment & Plan Assessment & Plan (1) Cocaine use disorder, moderate, dependence: Status: Acute Code(s): F14.20 - Cocaine dependence, uncomplicated (2) PTSD (post-traumatic stress disorder): Status: Acute Code(s): F43.10 - Post-traumatic stress disorder, unspecified Assessment and Plan: Mr. Baumann is a 40 year-old male with hx of cocaine use, PTSD who self presented to [facility] ED reporting increase CAH telling him to OD on Opioids and cocaine. In the ED, his utox was positive for cocaine. Pt reports in past 2 weeks, increasingly more agitated in setting of cocaine use, nightmares related to past trauma. We discussed risks, benefits and alternative treatment options. PLAN 1. Admit to M3 2. D/C seroquel- suspect akathisia, worsening of anxious mood/severe sense of restlessness, which pt notes has worsened during hospital course. Akathisia- improving, continue ativan 2mg po qhs. Continue cogentin 1mg po BID- will try to regulate sleep/mood without control substance by time of d/c given hx of cocaine use. Increase propanolol 40mg po qhs extended release. 3. decrease Prazosin 3mg po qhs started on 12/28 (due to dizziness/unsteady gait), Hold if SBP<90 for anxious mood/sleep/nightmares. clonidine d/c. 4. D/Mason doxepine to 50mg po qhs- as do suspect also contributing to akathisia and not effective. 5. Started risperidone 0.5mg po BID for voices 6. Amlodipine 2.5mg po daily for HTN 5. Obtain collateral information 6. Aftercare planning. I spent minutes with the patient and/or on the patient floor today, greater than?50% of which was spent counseling/coordinating care. Reason for contiued inpatient stay Substantial Risk for: harm to self
[2020-12-28] MEDS: Ibuprofen 600 MG TABLET PO (15:12)
[2020-12-28 22:19] VITALS: BP 142/87; PULSE 87
[2020-12-28] MEDS: Prazosin HCL 1 MG CAPSULE 3 MG PO (22:19)
[2020-12-28] MEDS: risperiDONE 1 MG TABLET PO (22:21)
[2020-12-28] MEDS: LORazepam 1 MG TABLET 2 MG PO (22:21)
[2020-12-28] MEDS: Sennosides/Docusate Sodium TABLET 2 TAB PO (22:21)
[2020-12-28 22:27] VITALS: BP 142/87; PULSE 87; TEMP 36.6; O2SAT 100
[2020-12-28 22:53] VITALS: BP 142/87; PULSE 87
[2020-12-28] MEDS: Propranolol HCL LA 60 MG CAP.SA.24H PO (22:53)
[2020-12-29] MEDS: hydrOXYzine HCL 50 MG TABLET PO ×2 (06:10→10:13)
[2020-12-29] MEDS: Nicotine Polacrilex 2 MG GUM BUCCAL ×2 (06:10→08:26)
[2020-12-29 08:00] VITALS: BP 127/83; PULSE 79; RESP 16; TEMP 36.7; O2SAT 99
[2020-12-29] MEDS: Gabapentin 300 MG CAPSULE 900 MG PO (08:08)
[2020-12-29 08:09] VITALS: BP 127/83; PULSE 79
[2020-12-29] MEDS: risperiDONE 1 MG TABLET PO (08:09)
[2020-12-29] MEDS: amLODIPine Besylate 2.5 MG TABLET PO (08:09)
[2020-12-29] MEDS: Benztropine Mesylate 1 MG TABLET PO (08:09)
[2020-12-29] MEDS: Lidocaine 4 % Patch ADH..PATCH 1 PATCH TRANSDERMA (08:19)
[2020-12-29] MEDS: docosanoL 10 % Cream 2 GM TUBE 1 APPL TOPICAL ×2 (08:26→11:17)
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
== END 2020-12-29 02:10 | disposition home or self-care (01) | DRG 881 ==
PROVIDERS: Psychiatry & Neurology Psychiatry; Admitting Provider Psychiatry & Neurology Psychiatry; Visit Provider Social Worker
DX: F32.9 Major depressive disorder, single episode, unspecified (principal); R45.851 Suicidal ideations; F14.20 Cocaine dependence, uncomplicated; F43.10 Post-traumatic stress disorder, unspecified; Z23 Encounter for immunization; F17.210 Nicotine dependence, cigarettes, uncomplicated; Z71.6 Tobacco abuse counseling; Z79.899 Other long term (current) drug therapy
CPT/HCPCS: 36415; 80053; 80061; 83036; 83735; 85025; 90686; 93005; J2060; Q0163

== ENCOUNTER 2021-03-09 08:46 | Inpatient (IN) | payer MEDICARE, OTHER, SELFPAY ==
--- NOTE | ~2021-03-09 | XR_ITS ---
EXAMINATION: XR CHEST CLINICAL INFORMATION: Leukocytosis. Delirium. COMPARISON: None TECHNIQUE: AP portable view of the chest was obtained. FINDINGS: No significant abnormality is noted involving the heart, lungs, mediastinum, bony thorax or soft tissues. XR/XR chest 1V IMPRESSION: No acute disease.
--- NOTE | ~2021-03-09 | CT_ITS ---
EXAMINATION: CT HEAD WITHOUT CONTRAST CLINICAL INFORMATION: Delirium COMPARISON: None TECHNIQUE: Contiguous axial imaging was performed from the skull base to vertex without intravenous administration of contrast. This CT examination was performed using dose optimization techniques as appropriate, variously including the following: *Automated exposure control *Adjustment of mA and/or kV according to patient size (this includes techniques or standardized protocols for targeted exams where dose is matched to indication/reason for exam; i.e. extremities or head) *Use of iterative reconstruction technique DLP: 824 mGy-cm FINDINGS: There is no evidence of acute intracranial hemorrhage or territorial infarction. No abnormal mass effect or midline shift is seen. Saravia to white matter differentiation is well preserved. No extra-axial fluid collections are identified. The ventricles are normal in size. There is no abnormal attenuation within the brain parenchyma. The osseous structures and soft tissues are normal. There are mild inflammatory changes in the frontal and ethmoid sinuses. The mastoid air cells and visualized portions of the paranasal sinuses are otherwise clear. CT/CT head/brain wo con IMPRESSION: Mild inflammatory changes in the frontal and ethmoid sinuses otherwise unremarkable exam..
[2021-03-09 09:07] VITALS: BP 155/93; PULSE 82; RESP 19; TEMP 36.6; O2SAT 98; BMI 26.3
--- NOTE | 2021-03-09 10:07 | ECG_ITS ---
Test Reason : medclearance Blood Pressure : / mmHG Vent. Rate : 071 BPM Atrial Rate : 071 BPM P-R Int : 158 ms QRS Dur : 114 ms QT Int : 400 ms P-R-T Axes : 070 070 058 degrees QTc Int : 434 ms Normal sinus rhythm Minimal voltage criteria for LVH, may be normal variant ( Sokolow-Tom ) Borderline ECG When compared with ECG of 14-DEC-2020 21:49, No significant change was found Referred By: Karla Alonso Electronically Signed By:BABITA HAGAN
--- NOTE | 2021-03-09 10:07 | PC.NURSE ---
patient states not med compliant 1 week and reports increasing SI cant sleep nightmares and flashbacks. also reports recent etoh and cocaine use x 2 days allegedly 4 days ago. also reports AH, thoughts to harm self yesterday with a knife.
[2021-03-09] MEDS: LORazepam 1 MG TABLET 2 MG PO ×2 (10:27→21:39)
[2021-03-09 10:28] VITALS: BP 151/92; PULSE 82; RESP 16; TEMP 36.5; O2SAT 100
[2021-03-09 11:02] LABS: Amphetamine Screen Urine Not Detected (Not Detect); Barbiturates, Urine Not Detected (Not Detect); Benzodiazepines Screen Urine Not Detected (Not Detect); Cannabinoid Screen Urine POSITIVE (Not Detect); Cocaine Screen Urine POSITIVE (Not Detect); Fentanyl, urine Not Detected (Not Detect); Opiate Screen Urine Not Detected (Not Detect); Phencyclidine Screen Urine Not Detected (Not Detect)
[2021-03-09 11:05] LABS: COVID-19 Test Negative (Negative)
--- NOTE | 2021-03-09 11:35 | PHA.MEDREC ---
Pharmacy Consult ? Medication Reconciliation Pharmacy has reviewed the medication reconciliation completed by Clemencia. Patient reports taking all the medicaitons, however there is no claim history. Ativan & gabapentin are not on the PDMP. But patient swears he took medications a week ago. Cris Mcconnell, PharmD
--- NOTE | 2021-03-09 11:52 | ED.PSYCH ---
HPI - Psych General Chief Complaint: Psychiatric Symptoms Stated Complaint: crisis depressed Time Seen by Provider: 03/09/21 09:37 Source: patient Mode of arrival: ambulatory History of Present Illness HPI Narrative: 40-year-old male with past medical history of DVT, major depressive disorder, PTSD, presenting to the ED complaining of auditory hallucinations telling him to harm himself, paranoia, suicidal ideation, and suicide attempt yesterday to stab himself but friend stopped him. Reports has been drinking ETOH recently, denies being daily EtOH abuser. also reports marijuana and cocaine use. States has not slept x1 week feeling increasingly fatigued. Denies fever, chills, cough, CP/SOB, abdominal pain MD complaint: suicidal ideation, feels depressed and hallucinations Onset (ago): week(s) Related Data Previous Rx's Medication Instructions Recorded amlodipine 2.5 mg tablet 2.5 mg PO DAILY #30 tab 12/29/20 benztropine 1 mg tablet 1 mg PO BID #60 tab 12/29/20 docosanol 10 % topical cream 1 appl TOPICAL 5XD #2 g 12/29/20 (Abreva) gabapentin 300 mg capsule 900 mg PO TID #90 cap 12/29/20 hydroxyzine HCl 50 mg tablet 50 mg PO TID PRN #60 tab 12/29/20 lidocaine 4 % topical patch 1 patch TRANSDERMAL DAILY #30 ea 12/29/20 (Lidocaine Pain Relief) lorazepam 2 mg tablet 2 mg PO BEDTIME #15 tab 12/29/20 nicotine (polacrilex) 2 mg gum 2 mg BUCCAL Q2H PRN #30 ea 12/29/20 prazosin 2 mg capsule 2 mg PO BEDTIME #15 cap 12/29/20 propranolol 60 mg capsule,24 60 mg PO BEDTIME #30 cap 12/29/20 hr,extended release risperidone 1 mg tablet 1 mg PO BID #60 tab 12/29/20 sennosides 8.6 mg-docusate sodium 2 tab PO BEDTIME #60 tab 12/29/20 50 mg tablet (Senna Plus) Allergies Allergy/AdvReac Type Severity Reaction Status Date / Time No Known Allergies Allergy Unverified 11/13/19 18:30 seasonal Allergy Unknown Uncoded 10/08/17 00:00 Review of Systems Review of Systems: Constitutional: No Fever, No Chills, +Fatigue, No Malaise ENT/Mouth: No Ear Pain, No Nasal Congestion, No sore throat, No Rhinorrhea, No Swallowing Difficulty Eyes: No Eye Pain, No Swelling, No Redness Cardiovascular: No Chest Pain, No SOB, No Palpitations Respiratory: No Cough, No Dyspnea Gastrointestinal: No Nausea, No Vomiting, No Diarrhea, No Constipation, No Abdominal pain Genitourinary: No Dysuria, No Urinary Frequency, No Hesitancy Musculoskeletal: No joint pain, No Myalgias, No Joint Swelling Skin: No Skin Lesions, No rash Neuro: No Weakness, No Dizziness, No Headache Psych: + Anxiety/Panic, + Depression, + SI/AH, No HI/VH, No Social Issues Yes all other systems are reviewed and are negative [facility] Past Medical History Attestation statement: The following information was validated with the patient. 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 Physical Exam Vital Signs: Vital Signs: Last Vital Signs Temp 97.7 F 03/09/21 10:28 Pulse 82 03/09/21 10:28 Resp 16 03/09/21 10:28 BP 151/92 H 03/09/21 10:28 Pulse Ox 100 03/09/21 10:28 BMI result Body Mass Index 26.3 Const: General: cooperative, healthy appearing and no acute distress Orientation/consciousness: patient oriented x3 Limitations: no limitations HENMT: Head: Yes normal to inspection Ears: hearing grossly normal bilaterally General nose exam: Normal external nose present Face and sinus: Yes normal facial exam Eyes: General: appearance normal, both eyes and all related structures Pupils: Equal, round and reactive pupils present EOM: EOMs intact bilaterally Neck: Neck: Yes normal visual inspection and Yes no meningeal signs Resp: Effort & Inspection: normal respiratory effort Auscultation: clear to auscultation bilaterally, no rales, no rhonchi and no wheezes Cardio: Rate: regular rate Heart sounds: S1 normal heart sound present and S2 normal heart sound present GI: Inspection: Yes normal to inspection Palpation (GI): Soft to palpation, nontender, no guarding and not rigid Skin: Rashes: no rashes Wounds: no wounds Neuro: General: patient oriented x3, no meningeal signs and CN's II-XI intact bilaterally Cranial nerves: Yes Equal, round and reactive pupils present Gait exam (Neuro): Normal gait present Extrem: General: Yes normal to inspection Psych: Affect: Anxious affect present Attitude: cooperative Thought content: Suicidality present, Paranoid delusions present, Hallucination(s) present auditory and Depressive thoughts present Course Course Course Narrative: -1300--labs unremarkable. Tox screen positive for cocaine and marijuana. COVID-19 negative -patient will be going to today MDM - Psych MDM Narrative Medical decision making narrative: 40-year-old male with past medical history of DVT, major depressive disorder, PTSD, presenting to the ED complaining of auditory hallucinations telling him to harm himself, paranoia, suicidal ideation, and suicide attempt yesterday to stab himself but friend stopped him. On exam vital signs stable, NAD, physical exam as above. Will obtain labs to rule out organic causes, MEDEL, and crisis consult Differential Diagnosis Differential diagnosis: Likely suicidal ideation, depression, acute anxiety, substance abuse and alcohol intoxication Medical Records Attestation: I reviewed the patient's medical records. Lab Data Attestation: I reviewed the patient's lab results. Labs: Lab Results 03/09/21 03/09/21 Range/Units 10:36 10:36 Urine Opiates Screen Not Detected (Not Detect) Urine Fentanyl Screen Not Detected (Not Detect) Ur Barbiturates Screen Not Detected (Not Detect) Ur Phencyclidine Scrn Not Detected (Not Detect) Ur Amphetamines Screen Not Detected (Not Detect) U Benzodiazepines Scrn Not Detected (Not Detect) Urine Cocaine Screen POSITIVE H (Not Detect) U Marijuana (THC) Screen POSITIVE H (Not Detect) COVID-19 ([facility]) Negative (Negative) COVID-19 Clin Com See Note Discharge Plan Discharge Clinical Impression: Cocaine use disorder, moderate, dependence, PTSD (post-traumatic stress disorder), Depression Patient Disposition: Admitted As Inpatient Prescriptions: No Action nicotine (polacrilex) 2 mg Gum 2 mg buccal Q2H PRN (Reason: Nicotine Cravings) Qty: 30 RF: 0 amlodipine 2.5 mg Tablet 2.5 mg PO DAILY Qty: 30 RF: 0 prazosin 2 mg capsule 2 mg PO BEDTIME Qty: 15 RF: 1 propranolol 60 mg Capsule,Extended Release 24 Hr 60 mg PO BEDTIME Qty: 30 RF: 0 hydroxyzine HCl 50 mg Tablet 50 mg PO TID PRN (Reason: Anxiety/sleep) Qty: 60 RF: 0 benztropine 1 mg Tablet 1 mg PO BID Qty: 60 RF: 0 gabapentin 300 mg Capsule 900 mg PO TID Qty: 90 RF: 0 lorazepam 2 mg tablet 2 mg PO BEDTIME Qty: 15 RF: 0 docosanol [Abreva] 10 % Cream 1 appl topical 5XD Qty: 2 RF: 0 lidocaine [Lidocaine Pain Relief] 4 % Adhesive Patch,Medicated 1 patch transdermal DAILY Qty: 30 RF: 0 sennosides-docusate sodium [Senna Plus] 8.6-50 mg Tablet 2 tab PO BEDTIME Qty: 60 RF: 0 risperidone 1 mg Tablet 1 mg PO BID Qty: 60 RF: 0
[2021-03-09] MEDS: hydrOXYzine HCL 50 MG TABLET PO ×2 (15:44→18:51)
[2021-03-09 16:03] VITALS: BP 146/82; PULSE 83; TEMP 36.9; O2SAT 96
[2021-03-09 16:57] LABS: MANUAL DIFF FLAG NO
[2021-03-09 16:59] LABS: Basophils Absolute Auto 0.1 X10*3/uL (0.0-0.2); Basophils Percent Auto 0.4 % (0-2); Eosinophils Absolute Auto 0.3 X10*3/uL (0.0-0.4); Eosinophils Percent Auto 2.7 % (0-4); Hematocrit 43.5 % (42.0-52.0); Hemoglobin 14.8 g/dl (14.0-18.0); Imm Gran Abs Auto 0.06 X10*3/uL (0.00-0.03); Imm Gran Pct Auto 0.5 % (0.0-0.4); Lymphocytes Absolute Auto 2.9 X10*3/uL (1.2-4.9); Lymphocytes Percent Auto 24.8 % (20-40); Mean Corpuscular Hemoglobin 31.4 pg (27.0-33.0); Mean Corpuscular Volume 92.2 fL (80.0-98.0); Mean Platelet Volume 10.3 fL (9.4-12.4); Monocytes Absolute Auto 1.3 X10*3/uL (0.1-1.2); Monocytes Percent Auto 10.9 % (2-11); Neutrophils Absolute Auto 7.1 x10*3/uL (2.0-8.3); Neutrophils Percent Auto 60.7 % (45-73); Platelet Count 251 X10*3/uL (160-400); Red Blood Count 4.72 X10*6/uL (4.60-5.80); White Blood Count 11.7 X10*3/uL (4.8-10.8)
[2021-03-09 17:12] LABS: Ethanol < 10 mg/dL
[2021-03-09 17:16] LABS: Alanine Aminotransferase 16 U/L (0-40); Albumin Level 3.8 g/dL (3.5-5.0); Alkaline Phosphatase 58 U/L (39-117); Anion Gap 12 (12-20); Aspartate Amino Transferase 12 U/L (5-37); Bilirubin Direct 0.2 mg/dL (0.0-0.5); Bilirubin Total 0.4 mg/dL (0.0-1.0); Blood Urea Nitrogen 15 mg/dL (9-16); Calcium 9.4 mg/dL (8.4-10.2); Carbon Dioxide 25 mmol/L (22-29); Chloride 108 mmol/L (96-108); Creatinine Clr Calc Pharmacy 113.3; Estimated Glomerular Filt Rate > 60; Glucose Random 82 mg/dL (60-115); Potassium 4.1 mmol/L (3.3-5.1); Sodium 141 mmol/L (135-145); Total Protein 6.3 g/dL (6.5-8.0)
[2021-03-09 18:00] VITALS: BP 142/85; PULSE 73; RESP 16; TEMP 36.7; O2SAT 98
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
[2021-03-09] MEDS: risperiDONE 1 MG TABLET PO (21:39)
[2021-03-09] MEDS: Benztropine Mesylate 1 MG TABLET PO (21:39)
[2021-03-09] MEDS: Sennosides/Docusate Sodium TABLET 2 TAB PO (21:39)
[2021-03-09] MEDS: Propranolol HCL LA 60 MG CAP.SA.24H PO (21:39)
[2021-03-09] MEDS: Gabapentin 300 MG CAPSULE 900 MG PO (21:39)
[2021-03-09] MEDS: Prazosin HCL 1 MG CAPSULE 2 MG PO (21:39)
[2021-03-09 21:42] VITALS: BP 134/75; PULSE 76; TEMP 37.5; O2SAT 97
[2021-03-10] MEDS: amLODIPine Besylate 2.5 MG TABLET PO (08:33)
[2021-03-10] MEDS: Gabapentin 300 MG CAPSULE 900 MG PO ×3 (08:33→21:51)
[2021-03-10] MEDS: Benztropine Mesylate 1 MG TABLET PO ×2 (08:33→21:51)
[2021-03-10] MEDS: risperiDONE 1 MG TABLET PO ×2 (08:33→21:54)
[2021-03-10] MEDS: hydrOXYzine HCL 50 MG TABLET PO ×2 (08:38→12:44)
[2021-03-10] MEDS: Lidocaine 4 % Patch ADH..PATCH 1 PATCH TRANSDERMA (08:40)
[2021-03-10] MEDS: Nicotine Polacrilex 2 MG GUM BUCCAL ×3 (08:56→21:13)
[2021-03-10 09:00] VITALS: BP 106/65; PULSE 61; RESP 16; TEMP 36.7; O2SAT 99
--- NOTE | 2021-03-10 11:09 | PC.NURSE ---
Pt refused flu vaccine at this time
[2021-03-10] MEDS: cloNIDine 0.1 MG PATCH.TDWK TRANSDERMA (12:44)
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
--- NOTE | 2021-03-10 15:39 | PC.NURSE ---
Pt reports increased anxiety despite receiving Hydroxyzine 50mg PRN x2 today. This RN reached out to Dr. Mcpherson who is aware and recommended Clonidine 0.1mg Q2H PRN severe anxiety.
[2021-03-10] MEDS: cloNIDine HCL 0.1 MG TABLET PO (16:43)
[2021-03-10 18:00] VITALS: BP 140/83; PULSE 83; TEMP 37.1; O2SAT 98
[2021-03-10] MEDS: Prazosin HCL 1 MG CAPSULE 2 MG PO (21:50)
[2021-03-10] MEDS: LORazepam 1 MG TABLET 2 MG PO (21:51)
[2021-03-10] MEDS: Sennosides/Docusate Sodium TABLET 2 TAB PO (21:51)
[2021-03-10] MEDS: Propranolol HCL LA 60 MG CAP.SA.24H PO (21:51)
[2021-03-11] MEDS: traZODone HCL 50 MG TABLET PO ×2 (03:17→23:13)
[2021-03-11] MEDS: cloNIDine HCL 0.1 MG TABLET PO ×2 (03:17→23:13)
[2021-03-11] MEDS: Acetaminophen 325 MG TABLET 650 MG PO (03:18)
[2021-03-11] MEDS: hydrOXYzine HCL 50 MG TABLET PO (03:18)
[2021-03-11 03:20] VITALS: BP 135/85; PULSE 74
[2021-03-11] MEDS: OLANZapine 10 MG VIAL 5 MG IM (06:10)
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
[2021-03-11 08:31] VITALS: BP 129/72; PULSE 72; RESP 17; TEMP 36.9; O2SAT 97
[2021-03-11] MEDS: risperiDONE 1 MG TABLET PO ×2 (08:59→21:31)
[2021-03-11] MEDS: Gabapentin 300 MG CAPSULE 900 MG PO ×2 (08:59→21:30)
[2021-03-11] MEDS: Benztropine Mesylate 1 MG TABLET PO ×2 (08:59→21:31)
[2021-03-11] MEDS: amLODIPine Besylate 2.5 MG TABLET PO (08:59)
[2021-03-11] MEDS: Lidocaine 4 % Patch ADH..PATCH 1 PATCH TRANSDERMA (09:00)
[2021-03-11] MEDS: chlorproMAZINE HCl 100 MG TABLET 200 MG PO ×2 (11:04→23:13)
[2021-03-11] MEDS: LORazepam 1 MG TABLET 2 MG PO ×4 (11:04→23:13)
[2021-03-11] MEDS: Lithium Carbonate ER 300 MG TABLET.ER 600 MG PO ×2 (11:04→21:30)
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
[2021-03-11 21:15] VITALS: BP 136/86; PULSE 84; TEMP 36.3; O2SAT 99
[2021-03-11] MEDS: Prazosin HCL 1 MG CAPSULE 2 MG PO (21:30)
[2021-03-11] MEDS: Sennosides/Docusate Sodium TABLET 2 TAB PO (21:30)
[2021-03-11] MEDS: Propranolol HCL LA 60 MG CAP.SA.24H PO (21:31)
[2021-03-11 23:16] VITALS: BP 136/86; PULSE 88
--- NOTE | 2021-03-12 03:20 | PC.NURSE ---
CIWA SCALE NOT DONE/UNABLE TO BE DONE DUE TO MENTAL STATUS. PATIENT IS PRESCRIBED AND FREQUENTLY BEING GIVEN ATIVAN. VS WNL.
[2021-03-12 08:00] VITALS: BP 135/85; PULSE 82; TEMP 36.8; O2SAT 98
--- NOTE | 2021-03-12 08:50 | HO.PSYCHPN ---
Subjective Subjective Date of Service: 03/12/21 Reason For Visit: SI Subjective Notes: Conditional Voluntary Interim History: Attempted to see the patient. He was laying across his bed and had gotten up before. He did not respond. He continues to be on one-to-one observation. Continues to be disorganized and possibly delirious. Current regimen and plans were reviewed and maintained with no changes. He is on adequate medication for addressing the withdrawal and possible delirium. Review of Systems Review of Systems Could not be assessed Mental Status Exam Mental Status Exam Narrative: Could not be assessed Diagnostics Vital Signs (24Hr): Vital Signs - 24 hr 03/11/21 21:15 03/11/21 23:16 Temperature 97.3 F Pulse Rate 84 88 Blood Pressure 136/86 136/86 Pulse Oximetry 99 BMI result Body Mass Index 26.3 Labs Results: 03/09/21 16:49 03/09/21 16:49 Medications Medications Current Medications Acetaminophen (Acetaminophen 325 Mg Tablet) 650 mg PO Q6H PRN PRN Reason: Headache/Pain Mild Scale (1-3) Last Admin: 03/11/21 03:18 Dose: 650 mg Documented by: Al Hydroxide/Mg Hydroxide (Magnesium Hydrox/Alum Hydrox 30 Ml Oral.Susp) 30 ml PO Q6H PRN PRN Reason: Heartburn/Nausea Amlodipine Besylate (Amlodipine Besylate 2.5 Mg Tablet) 2.5 mg PO DAILY [facility]; Protocol Last Admin: 03/11/21 08:59 Dose: 2.5 mg Documented by: Benztropine Mesylate (Benztropine Mesylate 1 Mg Tablet) 1 mg PO BID [facility] Last Admin: 03/11/21 21:31 Dose: 1 mg Documented by: Chlorpromazine HCl (Chlorpromazine Hcl 100 Mg Tablet) 200 mg PO Q2H PRN PRN Reason: agitation Last Admin: 03/11/21 23:13 Dose: 200 mg Documented by: Clonidine (Clonidine 0.1 Mg Patch.Tdwk) 0.1 mg TRANSDERMA Th@0900 [facility]; Protocol Last Admin: 03/10/21 12:44 Dose: 0.1 mg Documented by: Clonidine HCl (Clonidine Hcl 0.1 Mg Tablet) 0.1 mg PO Q2H PRN; Protocol PRN Reason: Anxiety Last Admin: 03/11/21 23:13 Dose: 0.1 mg Documented by: Gabapentin (Gabapentin 300 Mg Capsule) 900 mg PO TID [facility] Last Admin: 03/11/21 21:30 Dose: 900 mg Documented by: Hydroxyzine HCl (Hydroxyzine Hcl 50 Mg Tablet) 50 mg PO TID PRN PRN Reason: Anxiety/sleep Last Admin: 03/11/21 03:18 Dose: 50 mg Documented by: Hydroxyzine HCl (Hydroxyzine Hcl 25 Mg Tablet) 25 mg PO BEDTIME PRN PRN Reason: Anxiety Lidocaine (Lidocaine 4 % Patch Adh..Patch) 1 patch TRANSDERMA DAILY [facility]; Protocol Last Admin: 03/11/21 09:00 Dose: 1 patch Documented by: [place] Carbonate ([place] Carbonate Er 300 Mg Tablet.Er) 600 mg PO BID [facility] Last Admin: 03/11/21 21:30 Dose: 600 mg Documented by: Lorazepam (Lorazepam 1 Mg Tablet) 2 mg PO BEDTIME [facility] Last Admin: 03/11/21 21:31 Dose: 2 mg Documented by: Lorazepam (Lorazepam 1 Mg Tablet) 2 mg PO Q2H PRN PRN Reason: agitation Last Admin: 03/11/21 23:13 Dose: 2 mg Documented by: Magnesium Hydroxide (Milk Of Magnesia 30 Ml Oral.Susp) 30 ml PO DAILY PRN PRN Reason: Constipation Nicotine Polacrilex (Nicotine Polacrilex 2 Mg Gum) 2 mg BUCCAL Q2H PRN PRN Reason: Nicotine Cravings Last Admin: 03/10/21 21:13 Dose: 2 mg Documented by: Prazosin HCl (Prazosin Hcl 1 Mg Capsule) 2 mg PO BEDTIME [facility]; Protocol Last Admin: 03/11/21 21:30 Dose: 2 mg Documented by: Propranolol HCl (Propranolol Hcl La 60 Mg Cap.Sa.24h) 60 mg PO BEDTIME [facility]; Protocol Last Admin: 03/11/21 21:31 Dose: 60 mg Documented by: Risperidone (Risperidone 1 Mg Tablet) 1 mg PO BID [facility] Last Admin: 03/11/21 21:31 Dose: 1 mg Documented by: Senna/Docusate Sodium (Sennosides/Docusate Sodium Tablet) 2 tab PO BEDTIME [facility] Last Admin: 03/11/21 21:30 Dose: 2 tab Documented by: Trazodone HCl (Trazodone Hcl 50 Mg Tablet) 50 mg PO BEDTIME PRN PRN Reason: Insomnia Last Admin: 03/11/21 23:13 Dose: 50 mg Documented by: Allergies Allergies Allergy/AdvReac Type Severity Reaction Status Date / Time No Known Allergies Allergy Unverified 11/13/19 18:30 seasonal Allergy Unknown Uncoded 10/08/17 00:00 Assessment & Plan Assessment & Plan (1) Cocaine use disorder, moderate, dependence: Status: Acute Code(s): F14.20 - Cocaine dependence, uncomplicated Assessment and Plan: abstain (2) PTSD (post-traumatic stress disorder): Status: Acute Code(s): F43.10 - Post-traumatic stress disorder, unspecified (3) Depression: Status: Acute Code(s): F32.A - Depression, unspecified Assessment and Plan: added clonidine patch 03/10. otherwise continued home meds. new compression stockings ordered. no sleep 03/10, pt appears to have gotten delirious or psychotic/manic. will initiate trial of lithium on the chance pt's bouts of insomnia are a manifestation of bipolar disorder rather than PTSD. thorazine 200 and ativan 2 mg PRNs added. 03/12/21 Continue current regimen and plans. Continue one-to-one level of observation. I spent minutes with the patient and/or on the patient floor today, greater than?50% of which was spent counseling/coordinating care. Reason for contiued inpatient stay Substantial Risk for: stable for discharge and other
--- NOTE | 2021-03-12 09:57 | PC.NURSE ---
Pt appears very confused and disoriented this morning. When eating breakfast, he was unable to hold his fork and needed assistance with cutting and picking up his food. He exhibited very slow movements, incomprehensible speech, bizarre behavior (tried to put his feet in his breakfast tray). Vitals: 135/85, HR 82, O2 98% T: 98.[address] Cuevas who recommended administering medications as scheduled but to hold off on Ativan and Thorazine unless he becomes extremely agitated.
[2021-03-12] MEDS: Gabapentin 300 MG CAPSULE 900 MG PO ×2 (10:07→15:01)
[2021-03-12] MEDS: Benztropine Mesylate 1 MG TABLET PO (10:08)
[2021-03-12] MEDS: risperiDONE 1 MG TABLET PO (10:09)
[2021-03-12] MEDS: Lithium Carbonate ER 300 MG TABLET.ER 600 MG PO (10:09)
[2021-03-12] MEDS: Lidocaine 4 % Patch ADH..PATCH 1 PATCH TRANSDERMA (10:10)
[2021-03-12] MEDS: amLODIPine Besylate 2.5 MG TABLET PO (10:10)
[2021-03-12] MEDS: cloNIDine HCL 0.1 MG TABLET PO (11:22)
--- NOTE | 2021-03-12 11:25 | PC.NURSE ---
Per staff member who speaks fluently in Chinese, pt became very accusatory and suspicious of the female sitter. Pt also started opening doors to other patients' rooms. Once the female sitter was replaced by a male staff, pt appeared to be less frustrated and less anxious. This RN provided 0.1mg Clonidine to help with anxiety, awaiting effects.
[2021-03-12] MEDS: chlorproMAZINE HCl 100 MG TABLET 200 MG PO (15:01)
[2021-03-12] MEDS: LORazepam 1 MG TABLET 2 MG PO (15:03)
--- NOTE | 2021-03-12 15:23 | PC.NURSE ---
Pt asked to see his phone to get a phone number. After 10 minutes, staff asked that he return it and patient stated (per staff member who speaks Indonesian fluently): no, it should stay with me since I m being discharged today. Pt refused to give back his phone and has been pacing down the halls. He stated (per staff member): I signed a piece of paper saying that I was going to be discharged today. I'm going to check everyone's trash cans to find it. Pt began going into other patients' rooms and had to be frequently redirected. He also said if another patient tries to argue with me when I go in their room, then I'm going to fight them; I'm not scared of anyone. This RN administered PRN 200mg Thorazine and 2mg Ativan PO due to patient's escalating agitation towards staff, awaiting effects.
--- NOTE | 2021-03-12 15:52 | PC.NURSE ---
Pt appeared confused and attempted to open the door to the nurse's station, pt had to be redirected back to his room.
[2021-03-12] MEDS: Nicotine Polacrilex 2 MG GUM BUCCAL (18:09)
--- NOTE | 2021-03-12 18:31 | PC.NURSE ---
This RN updated Dr. Cuevas on pt's current mental status. Pt is awake and spending time in the milieu. Speech is still incomprehensible and slurred but pt is pleasant with staff.
[2021-03-12 20:00] VITALS: RESP 14
[2021-03-12 23:00] VITALS: RESP 12
--- NOTE | 2021-03-12 23:11 | PC.NURSE ---
patient has been asleep since change of nursing shift at 1900. respirations are even with rates of 12-14. patient has not been woken up for medications, fluids and has not woken self up to use the bathroom. will continue to monitor sleep pattern and safety. will hold HS medications at this time and will assess when he wakes up.
[2021-03-13] MEDS: Propranolol HCL LA 60 MG CAP.SA.24H PO ×2 (01:30→20:46)
[2021-03-13] MEDS: Gabapentin 300 MG CAPSULE 900 MG PO ×3 (01:30→20:45)
[2021-03-13] MEDS: Prazosin HCL 1 MG CAPSULE 2 MG PO ×2 (01:30→20:45)
[2021-03-13] MEDS: Lithium Carbonate ER 300 MG TABLET.ER 600 MG PO ×3 (01:31→20:45)
[2021-03-13] MEDS: Benztropine Mesylate 1 MG TABLET PO ×3 (01:31→20:45)
[2021-03-13] MEDS: LORazepam 1 MG TABLET 2 MG PO ×3 (01:31→20:51)
[2021-03-13] MEDS: risperiDONE 1 MG TABLET PO (01:31)
[2021-03-13 01:38] VITALS: BP 138/86; PULSE 86; TEMP 36.6; O2SAT 97
--- NOTE | 2021-03-13 01:39 | PC.NURSE ---
patient is awake. continues with irritable and paranoid edge. allowed for VS to be taken and accepted medications. requested and given food/fluids. suspicious about belongings. did make bed upon rising.
[2021-03-13 08:00] VITALS: BP 115/69; PULSE 76; RESP 16; TEMP 36.5; O2SAT 100
--- NOTE | 2021-03-13 08:03 | HO.PSYCHPN ---
Subjective Subjective Date of Service: 03/13/21 Reason For Visit: SI Subjective Notes: Conditional Voluntary Medical Problems Affecting Mental Status: No Medication Compliance: Yes Side effects from medications: No Attending Groups: No Review of Systems Patient was discussed in rounds and attempted to see him but he was sleep and would not get up. He was quiet sedated yesterday with slurred speech and PRNs were held but later on he became more animated and exhibited signs of paranoia and suspiciousness. There was an incident with his phone that eventually got resolved. PRNs need to be used later in the day and at night. He did sleep with some interruptions. In light of the continued paranoia high increase his risk withdrawal to 2 mg b.i.d.. He continues to have Thorazine and Ativan available as PRNs. He also continues to be on one-to-one observation Review of Systems Review of Systems Could not be assessed Yes Unobtainable due to mental status Mental Status Exam Mental Status Exam Narrative: Could not be assessed Diagnostics Vital Signs (24Hr): Vital Signs - 24 hr 03/12/21 20:00 03/12/21 23:00 03/13/21 01:38 Temperature 97.8 F Pulse Rate 86 Respiratory Rate 14 12 Blood Pressure 138/86 Pulse Oximetry 97 BMI result Body Mass Index 26.3 Labs Results: 03/09/21 16:49 03/09/21 16:49 Medications Medications Current Medications Acetaminophen (Acetaminophen 325 Mg Tablet) 650 mg PO Q6H PRN PRN Reason: Headache/Pain Mild Scale (1-3) Last Admin: 03/11/21 03:18 Dose: 650 mg Documented by: Al Hydroxide/Mg Hydroxide (Magnesium Hydrox/Alum Hydrox 30 Ml Oral.Susp) 30 ml PO Q6H PRN PRN Reason: Heartburn/Nausea Amlodipine Besylate (Amlodipine Besylate 2.5 Mg Tablet) 2.5 mg PO DAILY [facility]; Protocol Last Admin: 03/12/21 10:10 Dose: 2.5 mg Documented by: Benztropine Mesylate (Benztropine Mesylate 1 Mg Tablet) 1 mg PO BID [facility] Last Admin: 03/13/21 01:31 Dose: 1 mg Documented by: Chlorpromazine HCl (Chlorpromazine Hcl 100 Mg Tablet) 200 mg PO Q2H PRN PRN Reason: agitation Last Admin: 03/12/21 15:01 Dose: 200 mg Documented by: Clonidine (Clonidine 0.1 Mg Patch.Tdwk) 0.1 mg TRANSDERMA Th@0900 [facility]; Protocol Last Admin: 03/10/21 12:44 Dose: 0.1 mg Documented by: Clonidine HCl (Clonidine Hcl 0.1 Mg Tablet) 0.1 mg PO Q2H PRN; Protocol PRN Reason: Anxiety Last Admin: 03/12/21 11:22 Dose: 0.1 mg Documented by: Gabapentin (Gabapentin 300 Mg Capsule) 900 mg PO TID [facility] Last Admin: 03/13/21 01:30 Dose: 900 mg Documented by: Hydroxyzine HCl (Hydroxyzine Hcl 50 Mg Tablet) 50 mg PO TID PRN PRN Reason: Anxiety/sleep Last Admin: 03/11/21 03:18 Dose: 50 mg Documented by: Hydroxyzine HCl (Hydroxyzine Hcl 25 Mg Tablet) 25 mg PO BEDTIME PRN PRN Reason: Anxiety Lidocaine (Lidocaine 4 % Patch Adh..Patch) 1 patch TRANSDERMA DAILY [facility]; Protocol Last Admin: 03/12/21 10:10 Dose: 1 patch Documented by: [place] Carbonate ([place] Carbonate Er 300 Mg Tablet.Er) 600 mg PO BID [facility] Last Admin: 03/13/21 01:31 Dose: 600 mg Documented by: Lorazepam (Lorazepam 1 Mg Tablet) 2 mg PO BEDTIME [facility] Last Admin: 03/13/21 01:31 Dose: 2 mg Documented by: Lorazepam (Lorazepam 1 Mg Tablet) 2 mg PO Q2H PRN PRN Reason: agitation Last Admin: 03/12/21 15:03 Dose: 2 mg Documented by: Magnesium Hydroxide (Milk Of Magnesia 30 Ml Oral.Susp) 30 ml PO DAILY PRN PRN Reason: Constipation Nicotine Polacrilex (Nicotine Polacrilex 2 Mg Gum) 2 mg BUCCAL Q2H PRN PRN Reason: Nicotine Cravings Last Admin: 03/12/21 18:09 Dose: 2 mg Documented by: Prazosin HCl (Prazosin Hcl 1 Mg Capsule) 2 mg PO BEDTIME [facility]; Protocol Last Admin: 03/13/21 01:30 Dose: 2 mg Documented by: Propranolol HCl (Propranolol Hcl La 60 Mg Cap.Sa.24h) 60 mg PO BEDTIME [facility]; Protocol Last Admin: 03/13/21 01:30 Dose: 60 mg Documented by: Risperidone (Risperidone 2 Mg Tablet) 2 mg PO BID [facility] Senna/Docusate Sodium (Sennosides/Docusate Sodium Tablet) 2 tab PO BEDTIME [facility] Last Admin: 03/13/21 01:38 Dose: Not Given Documented by: Trazodone HCl (Trazodone Hcl 50 Mg Tablet) 50 mg PO BEDTIME PRN PRN Reason: Insomnia Last Admin: 03/11/21 23:13 Dose: 50 mg Documented by: Allergies Allergies Allergy/AdvReac Type Severity Reaction Status Date / Time No Known Allergies Allergy Unverified 11/13/19 18:30 seasonal Allergy Unknown Uncoded 10/08/17 00:00 Assessment & Plan Assessment & Plan (1) Cocaine use disorder, moderate, dependence: Status: Acute Code(s): F14.20 - Cocaine dependence, uncomplicated Assessment and Plan: abstain (2) PTSD (post-traumatic stress disorder): Status: Acute Code(s): F43.10 - Post-traumatic stress disorder, unspecified (3) Depression: Status: Acute Code(s): F32.A - Depression, unspecified Assessment and Plan: added clonidine patch 03/10. otherwise continued home meds. new compression stockings ordered. no sleep 03/10, pt appears to have gotten delirious or psychotic/manic. will initiate trial of lithium on the chance pt's bouts of insomnia are a manifestation of bipolar disorder rather than PTSD. thorazine 200 and ativan 2 mg PRNs added. 03/12/21 Continue current regimen and plans. Continue one-to-one level of observation. 03/13/2021 Continue current plans with increase of Risperdal to 2 mg b.i.d.. Continue one-to-one observation I spent minutes with the patient and/or on the patient floor today, greater than?50% of which was spent counseling/coordinating care. Reason for contiued inpatient stay Substantial Risk for: inability to function and other
[2021-03-13] MEDS: risperiDONE 2 MG TABLET PO ×2 (08:48→20:45)
[2021-03-13] MEDS: amLODIPine Besylate 2.5 MG TABLET PO (08:48)
[2021-03-13] MEDS: Lidocaine 4 % Patch ADH..PATCH 1 PATCH TRANSDERMA (08:50)
--- NOTE | 2021-03-13 09:43 | PC.NURSE ---
Per staff member who speaks fluent Maltese, pt is confused and asked where his duffel bag was. Staff tried to explain that he did not have a duffel bag listed as part of his belongings. Pt appears disoriented and is unable to distinguish belongings that he currently has with him versus the belongings he had during his prior admission.
[2021-03-13] MEDS: chlorproMAZINE HCl 100 MG TABLET 200 MG PO ×2 (12:22→20:46)
--- NOTE | 2021-03-13 13:33 | PC.NURSE ---
Patient gave verbal consent to speak to sister witnessed by Claudio Shaw
[2021-03-13] MEDS: cloNIDine HCL 0.1 MG TABLET PO (13:42)
[2021-03-13 18:00] VITALS: BP 132/60; PULSE 85; RESP 18; TEMP 36.8; O2SAT 97
[2021-03-13] MEDS: traZODone HCL 50 MG TABLET PO (20:46)
[2021-03-13] MEDS: Sennosides/Docusate Sodium TABLET 2 TAB PO (20:46)
[2021-03-14] MEDS: risperiDONE 2 MG TABLET PO ×2 (08:51→21:38)
[2021-03-14] MEDS: amLODIPine Besylate 2.5 MG TABLET PO (08:51)
[2021-03-14] MEDS: Gabapentin 300 MG CAPSULE 900 MG PO ×3 (08:51→21:38)
[2021-03-14] MEDS: Lithium Carbonate ER 300 MG TABLET.ER 600 MG PO ×2 (08:51→21:39)
[2021-03-14] MEDS: Benztropine Mesylate 1 MG TABLET PO ×2 (08:51→21:39)
[2021-03-14] MEDS: Lidocaine 4 % Patch ADH..PATCH 1 PATCH TRANSDERMA (08:51)
[2021-03-14 09:02] VITALS: BP 115/75; PULSE 95; RESP 17; TEMP 36.7; O2SAT 97
--- NOTE | 2021-03-14 12:57 | HO.PSYCHPN ---
Subjective Subjective Date of Service: 03/14/21 Reason For Visit: SI Subjective Notes: Conditional Voluntary Interim History: Pt reports thinking staff let 3 pts sleep together last night. Pt reports seeing himself stabbed. He reports hearing hearing others talking about him, feeling very restless and anxious. He reports poor sleep- per staff he slept about 5 hrs. Pt reports SI but denies any plan or intent to hurt himself. Medication Compliance: Yes Side effects from medications: No Attending Groups: No Review of Systems Review of Systems Could not be assessed Yes all other systems are reviewed and are negative and Unobtainable due to mental status Mental Status Exam Mental Status Exam Narrative: Casually groomed, disheveled, in NAD Anxious, restless but able to engage in conversation with this content writer Speech is clear, normal rate/rhythm/volume, spontaneous TP: tangential, no loose association TC: thinks ppl talking about him, seeing himself being stabbed in chest, thinks staff let 3 pts sleep together VH/AH: internally preoccupied Delusions: persecutory/paranoid Mood: anxious Affect: congruent, Insight/judgment: poor x 2 Memory/cog: alert, not fully oriented to situation, poor attention confusion secondary to psychiatric symptoms. Diagnostics Vital Signs (24Hr): Vital Signs - 24 hr 03/13/21 18:00 03/14/21 09:02 Temperature 98.2 F 98.0 F Pulse Rate 85 95 Respiratory Rate 18 17 Blood Pressure 132/60 115/75 Pulse Oximetry 97 97 BMI result Body Mass Index 26.3 Labs Results: 03/09/21 16:49 03/09/21 16:49 Medications Medications Current Medications Acetaminophen (Acetaminophen 325 Mg Tablet) 650 mg PO Q6H PRN PRN Reason: Headache/Pain Mild Scale (1-3) Last Admin: 03/11/21 03:18 Dose: 650 mg Documented by: Al Hydroxide/Mg Hydroxide (Magnesium Hydrox/Alum Hydrox 30 Ml Oral.Susp) 30 ml PO Q6H PRN PRN Reason: Heartburn/Nausea Amlodipine Besylate (Amlodipine Besylate 2.5 Mg Tablet) 2.5 mg PO DAILY [facility]; Protocol Last Admin: 03/14/21 08:51 Dose: 2.5 mg Documented by: Benztropine Mesylate (Benztropine Mesylate 1 Mg Tablet) 1 mg PO BID [facility] Last Admin: 03/14/21 08:51 Dose: 1 mg Documented by: Chlorpromazine HCl (Chlorpromazine Hcl 100 Mg Tablet) 200 mg PO Q2H PRN PRN Reason: agitation Last Admin: 03/13/21 20:46 Dose: 200 mg Documented by: Clonidine (Clonidine 0.1 Mg Patch.Tdwk) 0.1 mg TRANSDERMA Th@0900 [facility]; Protocol Last Admin: 03/10/21 12:44 Dose: 0.1 mg Documented by: Clonidine HCl (Clonidine Hcl 0.1 Mg Tablet) 0.1 mg PO Q2H PRN; Protocol PRN Reason: Anxiety Last Admin: 03/13/21 13:42 Dose: 0.1 mg Documented by: Gabapentin (Gabapentin 300 Mg Capsule) 900 mg PO TID [facility] Last Admin: 03/14/21 08:51 Dose: 900 mg Documented by: Hydroxyzine HCl (Hydroxyzine Hcl 50 Mg Tablet) 50 mg PO TID PRN PRN Reason: Anxiety/sleep Last Admin: 03/11/21 03:18 Dose: 50 mg Documented by: Hydroxyzine HCl (Hydroxyzine Hcl 25 Mg Tablet) 25 mg PO BEDTIME PRN PRN Reason: Anxiety Lidocaine (Lidocaine 4 % Patch Adh..Patch) 1 patch TRANSDERMA DAILY [facility]; Protocol Last Admin: 03/14/21 08:51 Dose: 1 patch Documented by: [place] Carbonate ([place] Carbonate Er 300 Mg Tablet.Er) 600 mg PO BID [facility] Last Admin: 03/14/21 08:51 Dose: 600 mg Documented by: Lorazepam (Lorazepam 1 Mg Tablet) 2 mg PO BEDTIME [facility] Last Admin: 03/13/21 20:51 Dose: 2 mg Documented by: Lorazepam (Lorazepam 1 Mg Tablet) 2 mg PO Q2H PRN PRN Reason: agitation Last Admin: 03/13/21 12:22 Dose: 2 mg Documented by: Magnesium Hydroxide (Milk Of Magnesia 30 Ml Oral.Susp) 30 ml PO DAILY PRN PRN Reason: Constipation Nicotine Polacrilex (Nicotine Polacrilex 2 Mg Gum) 2 mg BUCCAL Q2H PRN PRN Reason: Nicotine Cravings Last Admin: 03/12/21 18:09 Dose: 2 mg Documented by: Prazosin HCl (Prazosin Hcl 1 Mg Capsule) 2 mg PO BEDTIME [facility]; Protocol Last Admin: 03/13/21 20:45 Dose: 2 mg Documented by: Propranolol HCl (Propranolol Hcl La 60 Mg Cap.Sa.24h) 60 mg PO BEDTIME [facility]; Protocol Last Admin: 03/13/21 20:46 Dose: 60 mg Documented by: Risperidone (Risperidone 2 Mg Tablet) 2 mg PO BID [facility] Last Admin: 03/14/21 08:51 Dose: 2 mg Documented by: Senna/Docusate Sodium (Sennosides/Docusate Sodium Tablet) 2 tab PO BEDTIME [facility] Last Admin: 03/13/21 20:46 Dose: 2 tab Documented by: Trazodone HCl (Trazodone Hcl 50 Mg Tablet) 50 mg PO BEDTIME PRN PRN Reason: Insomnia Last Admin: 03/13/21 20:46 Dose: 50 mg Documented by: Allergies Allergies Allergy/AdvReac Type Severity Reaction Status Date / Time No Known Allergies Allergy Unverified 11/13/19 18:30 seasonal Allergy Unknown Uncoded 10/08/17 00:00 Assessment & Plan Assessment & Plan (1) Cocaine use disorder, moderate, dependence: Status: Acute Code(s): F14.20 - Cocaine dependence, uncomplicated Assessment and Plan: abstain (2) PTSD (post-traumatic stress disorder): Status: Acute Code(s): F43.10 - Post-traumatic stress disorder, unspecified (3) Depression: Qualifiers: Major depression episode severity: severe Psychotic features: with psychotic features Status: Acute Code(s): F32.A - Depression, unspecified Assessment and Plan: added clonidine patch 03/10. otherwise continued home meds. new compression stockings ordered. no sleep 03/10, pt appears to have gotten delirious or psychotic/manic. will initiate trial of lithium on the chance pt's bouts of insomnia are a manifestation of bipolar disorder rather than PTSD. thorazine 200 and ativan 2 mg PRNs added. 03/12/21 Continue current regimen and plans. Continue one-to-one level of observation. 03/13/2021 Continue current plans with increase of Risperdal to 2 mg b.i.d.. Continue one-to-one observation 03/14 continue current medications. I spent minutes with the patient and/or on the patient floor today, greater than?50% of which was spent counseling/coordinating care. Reason for contiued inpatient stay Substantial Risk for: inability to function
[2021-03-14] MEDS: Acetaminophen 325 MG TABLET 650 MG PO ×2 (13:57→23:17)
[2021-03-14] MEDS: chlorproMAZINE HCl 100 MG TABLET 200 MG PO ×2 (14:10→21:38)
[2021-03-14] MEDS: LORazepam 1 MG TABLET 2 MG PO ×2 (14:10→21:39)
[2021-03-14] MEDS: Nicotine Polacrilex 2 MG GUM BUCCAL (15:28)
[2021-03-14 18:00] VITALS: RESP 16
[2021-03-14 21:33] VITALS: BP 130/78; PULSE 80; RESP 16; TEMP 36.6; O2SAT 98
[2021-03-14] MEDS: Propranolol HCL LA 60 MG CAP.SA.24H PO (21:38)
[2021-03-14] MEDS: hydrOXYzine HCL 50 MG TABLET PO (21:38)
[2021-03-14] MEDS: Sennosides/Docusate Sodium TABLET 2 TAB PO (21:38)
[2021-03-14] MEDS: Prazosin HCL 1 MG CAPSULE 2 MG PO (21:38)
[2021-03-14] MEDS: traZODone HCL 50 MG TABLET PO (21:39)
[2021-03-15] MEDS: chlorproMAZINE HCl 100 MG TABLET 200 MG PO ×3 (00:07→22:45)
[2021-03-15] MEDS: LORazepam 1 MG TABLET 2 MG PO ×3 (00:07→22:46)
[2021-03-15] MEDS: traZODone HCL 50 MG TABLET PO ×2 (00:07→21:46)
--- NOTE | 2021-03-15 00:11 | PC.NURSE ---
Patient up, walking around trying to go into other patients room. able to redirect. Patient states his anxiety is 10/10.
[2021-03-15 06:00] VITALS: BP 108/67; PULSE 67; RESP 16; TEMP 36.6; O2SAT 98
[2021-03-15] MEDS: Lithium Carbonate ER 300 MG TABLET.ER 600 MG PO ×2 (08:38→21:45)
[2021-03-15] MEDS: Gabapentin 300 MG CAPSULE 900 MG PO (08:38)
[2021-03-15] MEDS: risperiDONE 2 MG TABLET PO (08:39)
[2021-03-15] MEDS: amLODIPine Besylate 2.5 MG TABLET PO (08:40)
[2021-03-15] MEDS: Lidocaine 4 % Patch ADH..PATCH 1 PATCH TRANSDERMA (08:40)
[2021-03-15] MEDS: Benztropine Mesylate 1 MG TABLET PO (08:40)
[2021-03-15 09:36] VITALS: BP 114/72; PULSE 86; TEMP 36.3; O2SAT 98
[2021-03-15] MEDS: Gabapentin 300 MG CAPSULE 600 MG PO ×2 (15:04→21:45)
[2021-03-15] MEDS: chlorproMAZINE HCl 100 MG TABLET PO ×2 (15:05→21:46)
--- NOTE | 2021-03-15 15:10 | P.PNPSI_ITS ---
Subjective Subjective Date of Service: 03/15/21 Reason For Visit: SI Interim History: pt remains disorganized, fluctuating consciousness, unsteady on feet. brazilian-speaking staff present for interview. pt denies using cocaine at all [employer]. he does state he uses a lot of cannabis daily, however. no-sequiturs, unclear how much he understands of discussion. he is able to say he feels con fused or muddled in the head. states he is a bit anxious, asking to get on gabapentin ( he is already on 900 TID). agreeable to decrease medications which might be making him delirious. per staff, pacing confused. going into others' rooms, attempting to get into the nursing station. paranoid, accusatory, thinking he is losing things. slept less than 6 hours. Mental Status Exam Mental Status Exam Narrative: appropriately dressed and groomed. pacing the halls, PMR, unsteady on his feet. cooperative. speech rapid, incr amount, decr latency. thoughts disorganized, tangential. affect constricted, normo-intense, non-labile. Diagnostics Vital Signs (24Hr): Vital Signs - 24 hr 03/14/21 18:00 03/14/21 21:33 03/15/21 06:00 Temperature 97.9 F 97.8 F Pulse Rate 80 67 Respiratory Rate 16 16 16 Blood Pressure 130/78 108/67 Pulse Oximetry 98 98 03/15/21 09:36 Temperature 97.4 F Pulse Rate 86 Respiratory Rate Blood Pressure 114/72 Pulse Oximetry 98 BMI result Body Mass Index 26.3 Labs Results: 03/09/21 16:49 03/09/21 16:49 Medications Medications Current Medications Acetaminophen (Acetaminophen 325 Mg Tablet) 650 mg PO Q6H PRN PRN Reason: Headache/Pain Mild Scale (1-3) Last Admin: 03/14/21 23:17 Dose: 650 mg Documented by: Al Hydroxide/Mg Hydroxide (Magnesium Hydrox/Alum Hydrox 30 Ml Oral.Susp) 30 ml PO Q6H PRN PRN Reason: Heartburn/Nausea Amlodipine Besylate (Amlodipine Besylate 2.5 Mg Tablet) 2.5 mg PO DAILY [facility]; Protocol Last Admin: 03/15/21 08:40 Dose: 2.5 mg Documented by: Benztropine Mesylate (Benztropine Mesylate 0.5 Mg Tablet) 0.5 mg PO BID [facility] Chlorpromazine HCl (Chlorpromazine Hcl 100 Mg Tablet) 200 mg PO Q2H PRN PRN Reason: agitation Last Admin: 03/15/21 12:43 Dose: 200 mg Documented by: Chlorpromazine HCl (Chlorpromazine Hcl 100 Mg Tablet) 100 mg PO TID [facility] Last Admin: 03/15/21 15:05 Dose: 100 mg Documented by: Clonidine (Clonidine 0.1 Mg Patch.Tdwk) 0.1 mg TRANSDERMA Th@0900 [facility]; Protocol Last Admin: 03/10/21 12:44 Dose: 0.1 mg Documented by: Clonidine HCl (Clonidine Hcl 0.1 Mg Tablet) 0.1 mg PO Q2H PRN; Protocol PRN Reason: Anxiety Last Admin: 03/13/21 13:42 Dose: 0.1 mg Documented by: Gabapentin (Gabapentin 300 Mg Capsule) 600 mg PO TID [facility] Last Admin: 03/15/21 15:04 Dose: 600 mg Documented by: Lidocaine (Lidocaine 4 % Patch Adh..Patch) 1 patch TRANSDERMA DAILY [facility]; Protocol Last Admin: 03/15/21 08:40 Dose: 1 patch Documented by: [place] Carbonate ([place] Carbonate Er 300 Mg Tablet.Er) 600 mg PO BID [facility] Last Admin: 03/15/21 08:38 Dose: 600 mg Documented by: Lorazepam (Lorazepam 1 Mg Tablet) 2 mg PO Q2H PRN PRN Reason: agitation Last Admin: 03/15/21 12:43 Dose: 2 mg Documented by: Magnesium Hydroxide (Milk Of Magnesia 30 Ml Oral.Susp) 30 ml PO DAILY PRN PRN Reason: Constipation Nicotine Polacrilex (Nicotine Polacrilex 2 Mg Gum) 2 mg BUCCAL Q2H PRN PRN Reason: Nicotine Cravings Last Admin: 03/14/21 15:28 Dose: 2 mg Documented by: Prazosin HCl (Prazosin Hcl 1 Mg Capsule) 2 mg PO BEDTIME [facility]; Protocol Last Admin: 03/14/21 21:38 Dose: 2 mg Documented by: Propranolol HCl (Propranolol Hcl La 60 Mg Cap.Sa.24h) 60 mg PO BEDTIME [facility]; Protocol Last Admin: 03/14/21 21:38 Dose: 60 mg Documented by: Senna/Docusate Sodium (Sennosides/Docusate Sodium Tablet) 2 tab PO BEDTIME [facility] Last Admin: 03/14/21 21:38 Dose: 2 tab Documented by: Trazodone HCl (Trazodone Hcl 50 Mg Tablet) 50 mg PO BEDTIME PRN PRN Reason: Insomnia Last Admin: 03/15/21 00:07 Dose: 50 mg Documented by: Allergies Allergies Allergy/AdvReac Type Severity Reaction Status Date / Time No Known Allergies Allergy Unverified 11/13/19 18:30 seasonal Allergy Unknown Uncoded 10/08/17 00:00 Assessment & Plan Assessment & Plan (1) Cocaine use disorder, moderate, dependence: Status: Acute Code(s): F14.20 - Cocaine dependence, uncomplicated Assessment and Plan: abstain (2) PTSD (post-traumatic stress disorder): Status: Acute Code(s): F43.10 - Post-traumatic stress disorder, unspecified (3) Depression: Qualifiers: Major depression episode severity: severe Psychotic features: with psychotic features Status: Acute Code(s): F32.A - Depression, unspecified Assessment and Plan: added clonidine patch 03/10. otherwise continued home meds. new compression stockings ordered. no sleep 03/10, pt appears to have gotten delirious or psychotic/manic. will initiate trial of lithium on the chance pt's bouts of insomnia are a manifestation of bipolar disorder rather than PTSD. thorazine 200 and ativan 2 mg PRNs added. 03/12/21 Continue current regimen and plans. Continue one-to-one level of observation. 03/13/2021 Continue current plans with increase of Risperdal to 2 mg b.i.d.. Continue one-to-one observation 03/14 continue current medications. 03/15: MD concerned pt is delirious, suggests decreasing gabapentin and any anti- cholinergic or anti-histaminergic medications. cogentin cut in half from 1 mg BID to 0.5 mg BID. hydroxyzine DCed. gabapentin decreased from 900 TID to 600 TID. risperidone DCed due to its potency, thorazine scheduled instead as it is low potency, out of concern for akathisia. check labs tomorrow morning. I spent minutes with the patient and/or on the patient floor today, greater than?50% of which was spent counseling/coordinating care. Reason for contiued inpatient stay Substantial Risk for: inability to function
[2021-03-15 21:40] VITALS: BP 149/74; PULSE 105; RESP 18; TEMP 36.8; O2SAT 100
[2021-03-15] MEDS: Sennosides/Docusate Sodium TABLET 2 TAB PO (21:45)
[2021-03-15] MEDS: Propranolol HCL LA 60 MG CAP.SA.24H PO (21:45)
[2021-03-15] MEDS: Prazosin HCL 1 MG CAPSULE 2 MG PO (21:46)
[2021-03-15] MEDS: Benztropine Mesylate 0.5 MG TABLET PO (21:47)
--- NOTE | 2021-03-15 23:49 | PC.NURSE ---
Martni is on a CIWA q 4 hours. Patient is confused and sedated and it is difficult to get answers to questions asked. Patient is not sweating and no visible signs of tremors. Patient does not appear to be withdrawing at this time. Nurse will continue to monitor.
--- NOTE | 2021-03-16 00:08 | PC.NURSE ---
AT 2245 Martin was walking in the hallway when he brushed up against a 20 year old female patient's breast. Patient was redirected back to his room immediately. Patient was given Thorazine and Ativan PO prn.
[2021-03-16 08:24] LABS: Basophils Absolute Auto 0.1 X10*3/uL (0.0-0.2); Basophils Percent Auto 0.3 % (0-2); Eosinophils Absolute Auto 0.4 X10*3/uL (0.0-0.4); Eosinophils Percent Auto 1.5 % (0-4); Hematocrit 44.7 % (42.0-52.0); Hemoglobin 14.7 g/dl (14.0-18.0); Imm Gran Pct Auto 0.7 % (0.0-0.4); Lymphocytes Percent Auto 7.2 % (20-40); MANUAL DIFF FLAG SCAN; Mean Corpuscular HGB Conc 32.9 g/dl (31.0-36.0); Mean Corpuscular Hemoglobin 30.8 pg (27.0-33.0); Mean Corpuscular Volume 93.5 fL (80.0-98.0); Mean Platelet Volume 10.2 fL (9.4-12.4); Monocytes Absolute Auto 2.8 X10*3/uL (0.1-1.2); Monocytes Percent Auto 9.9 % (2-11); Neutrophils Absolute Auto 22.4 x10*3/uL (2.0-8.3); Neutrophils Percent Auto 80.4 % (45-73); Platelet Count 209 X10*3/uL (160-400); Red Blood Count 4.78 X10*6/uL (4.60-5.80); Red Cell Distribution Width 14.6 % (11.0-16.0); SCAN SMEAR FLAG 1; White Blood Count 27.9 X10*3/uL (4.8-10.8)
[2021-03-16 08:50] LABS: Lithium 0.59 mmol/L (0.60-1.20)
[2021-03-16 08:59] VITALS: BP 119/67; PULSE 96; RESP 16; TEMP 36.6; O2SAT 96
[2021-03-16 09:00] LABS: Alanine Aminotransferase 12 U/L (0-40); Alkaline Phosphatase 66 U/L (39-117); Anion Gap 9 (12-20); Aspartate Amino Transferase 11 U/L (5-37); Bilirubin Direct 0.3 mg/dL (0.0-0.5); Bilirubin Total 0.7 mg/dL (0.0-1.0); Blood Urea Nitrogen 13 mg/dL (9-16); Calcium 9.7 mg/dL (8.4-10.2); Carbon Dioxide 28 mmol/L (22-29); Chloride 104 mmol/L (96-108); Creatinine Clr Calc Pharmacy 108.8; Estimated Glomerular Filt Rate > 60; Glucose Random 91 mg/dL (60-115); Potassium 4.4 mmol/L (3.3-5.1); Sodium 137 mmol/L (135-145); Total Protein 6.7 g/dL (6.5-8.0)
[2021-03-16 09:11] LABS: SLIDE REVIEW VERIFIED
--- NOTE | 2021-03-16 10:24 | PC.NURSE ---
AM medications not given pending hospitalist consult. MD aware. PT speech is garbled and difficult to understand, pt unsteady while walking. PT currently sleeping.
[2021-03-16 11:02] LABS: C Reactive Protein 2.52 mg/dL (< or = 0.50)
[2021-03-16 11:09] LABS: Procalcitonin 0.11 ng/mL
[2021-03-16 11:31] LABS: COVID-19 Test Negative (Negative); IDNOW Serial# 9DD0AD1C
[2021-03-16 11:50] LABS: HBS Num1 126.35 mIU/mL (0-7.99); HBc Num1 0.07 S/CO (0.00-0.79); HIV AB/AG Nonreactive (Nonreactive); HIV Num 1 0.11 S/CO (0.00-0.99); Hepatitis B Core Antibody Nonreactive (Nonreactive); ~HepC Num1 0.08 S/CO (0.00-0.79); ~Hepatitis B Surface Antibody REACTIVE (Nonreactive); ~Hepatitis C Antibody Nonreactive (Nonreactive)
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
[2021-03-16] MEDS: Gabapentin 300 MG CAPSULE 600 MG PO ×2 (16:43→19:53)
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
[2021-03-16 18:00] VITALS: BP 122/75; PULSE 97; RESP 16; TEMP 36.9; O2SAT 98
[2021-03-16 18:00] LABS: Lactate Dehydrogenase 157 U/L (118-273)
[2021-03-16] MEDS: Fluconazole 100 MG TABLET 200 MG PO (19:50)
[2021-03-16] MEDS: Prazosin HCL 1 MG CAPSULE 2 MG PO (19:52)
[2021-03-16] MEDS: Sennosides/Docusate Sodium TABLET 2 TAB PO (20:47)
[2021-03-16] MEDS: Propranolol HCL LA 60 MG CAP.SA.24H PO (20:48)
--- NOTE | 2021-03-16 23:26 | PC.NURSE ---
Addendum entered by Rochelle Davis RN 03/21/21 02:25: Pt given new compression socks on 03/20/2021. Original Note: pt requests for new compression socks
[2021-03-17] MEDS: chlorproMAZINE HCl 100 MG TABLET 200 MG PO ×3 (01:22→23:51)
[2021-03-17] MEDS: traZODone HCL 50 MG TABLET PO ×2 (01:23→23:52)
[2021-03-17] MEDS: LORazepam 1 MG TABLET 2 MG PO ×2 (03:39→23:52)
[2021-03-17 05:09] LABS: HBsAGNum1 0.24 S/CO (0.00-0.99); Hepatitis B Surface Antigen Negative (Negative)
[2021-03-17 08:29] LABS: Baso%MD 0.3 %; Hematocrit 41.7 % (42.0-52.0); Hemoglobin 13.7 g/dl (14.0-18.0); IG%MD 0.5 %; Lymph%MD 13.6 %; Mean Corpuscular HGB Conc 32.9 g/dl (31.0-36.0); Mean Corpuscular Hemoglobin 30.6 pg (27.0-33.0); Mean Corpuscular Volume 93.3 fL (80.0-98.0); Mean Platelet Volume 10.4 fL (9.4-12.4); Mono%MD 12.4 %; Neut%MD 71.2 %; Platelet Count 193 X10*3/uL (160-400); Red Blood Count 4.47 X10*6/uL (4.60-5.80); Red Cell Distribution Width 14.7 % (11.0-16.0); White Blood Count 19.5 X10*3/uL (4.8-10.8)
--- NOTE | 2021-03-17 10:16 | PM.EVENT ---
Event Note Date of Service: 03/17/21 Event Note: Follow-up on leukocytosis Vitals reviewed patient remained afebrile, with no tachycardia, no tachypnea Labs reviewed HIV viral load pending WBC trending down from 27.9-19.5 procalcitonin 0.11 Assessment and plan 40yo M admitted to inpatient psychiatry with SI from PTSD/anxiety and found to have leukocytosis/neutrophilia.? Noted to have thrush.? HIV Ab/Ag negative. 1.? Leukocytosis/neutrophilia/oral thrush WBC trending down question etiology likely related to lithium No sign of infection other than oral thrush which is less likely causing leukocytosis, blood cultures x2 pending Since WBC trending down will hold off on hematology and ID consultation, Repeat CBC at a.m. Continue treatment for oral thrush on status post Diflucan 200 mg day 1, continue Diflucan 100 mg daily for total 10 days HIV viral load pending
[2021-03-17] MEDS: amLODIPine Besylate 2.5 MG TABLET PO (10:46)
[2021-03-17] MEDS: Fluconazole 100 MG TABLET PO (10:46)
[2021-03-17] MEDS: Lidocaine 4 % Patch ADH..PATCH 1 PATCH TRANSDERMA (10:48)
[2021-03-17 10:52] VITALS: BP 115/75; PULSE 85; RESP 14; TEMP 36.9; O2SAT 96
[2021-03-17 11:20] VITALS: BMI 26.9
[2021-03-17] MEDS: cloNIDine 0.1 MG PATCH.TDWK TRANSDERMA (11:32)
[2021-03-17 12:27] LABS: Band Neutrophils Percent 8 % (3-5); Basophils Abs Manual 0.2 X10*3/uL (0.0-0.2); Basophils Percent Manual 1 % (0-2); Eosinophils Absolute Manual 0.8 X10*3/uL (0.0-0.4); Eosinophils Percent Manual 4 % (0-4); Lymphocytes Percent Manual 10 % (20-40); Monocytes Absolute Manual 1.2 X10*3/uL (0.1-1.2); Monocytes Percent Manual 6 % (2-11); Neutrophils Absolute Manual 15.4 X10*3/uL (2.0-8.3); Neutrophils Percent Manual 71 % (45-73)
[2021-03-17 12:28] LABS: Platelet Estimate NORMAL (NORMAL); Platelet Morphology Comment NORMAL; RBC Morphology NORMAL
--- NOTE | 2021-03-17 14:06 | HO.PSYCHPN ---
Subjective Subjective Date of Service: 03/17/21 Reason For Visit: SI Interim History: Sedate this a.m. due to Thorazine increase. Awake in the afternoon, remains on one to one, reports nightmares, voices, depression, anxiety, back pain L2-4, S3-5 , issues with housing and PVTA. Confused in his conversation, word finding issues-talks in Maori at times, in Thai at times-calm and without aggression, limited spatial boundaries at times. Medication Compliance: Yes Side effects from medications: Yes (sedation) Attending Groups: No Review of Systems Acute medical concerns: Yes WBC is trending down.....27.9 to 19.5 today with developing slight anemia. Medical Review of Systems: unchanged Review of Systems Reports behavioral changes, Reports confusion and Reports memory loss Psychiatric: Reports abnormal sleep pattern, Reports behavioral changes, Reports change in appetite, Reports confusion, Reports depression, Reports difficulty concentrating, Reports auditory hallucinations, Reports irritability, Reports anhedonia, Reports memory loss, Reports mood swings, Reports paranoia, Reports visual hallucinations, Reports hallucinations and Reports suicidal ideation Mental Status Exam Mental Status Exam Patient Appearance: Fatigued Patient Orientation: Person Level of Consciousness: Awake, Sedated, Disoriented and Alert Patient Behavior: Talkative, Passive, Sedated, Fatigued, Distractible, Confused and Good Eye Contact Mood Description: Constricted Affect Description: Constricted Patient Cognition Impaired: Yes Ability to Follow Directions: Fair Speech Pattern: Difficulty Finding Words, Monotone, Spontaneous Speech, Soft-Spoken, Cofabulation and Poor Articulation Memory Description: Remote Impaired, Immediate Impaired and Episodic Impaired Hallucinations: Auditory and Visual Perceptual Disturbances: Depersonalization, Derealization and Hallucinations Thought Process: Disoriented, Illogical, Distracted, Slowed Thinking and Confusion Thought Content: positive for Poverty of Content, positive for Loose Associations, positive for Slowed Thinking, positive for Tangential, positive for Disorganized and positive for Suicidal Ideation Depressive Symptoms: Insomnia, Diff. Making Decisions, Difficulty Sleeping, Changes in Appetite, Sleeping More Than Usual, Increased Fatigue, Thoughts of /Suicide, Loss of Energy and Difficulty Concentrating Judgement: Poor Diagnostics Vital Signs (24Hr): Vital Signs - 24 hr 03/16/21 18:00 03/17/21 10:52 Temperature 98.4 F 98.5 F Pulse Rate 97 85 Respiratory Rate 16 14 Blood Pressure 122/75 115/75 Pulse Oximetry 98 96 BMI result Body Mass Index 26.9 Labs Results: 03/17/21 08:15 03/16/21 08:15 Labs: Laboratory Results - last 48 hr 03/16/21 03/16/21 03/16/21 08:15 08:15 08:15 WBC 27.9 H RBC 4.78 Hgb 14.7 Hct 44.7 MCV 93.5 MCH 30.8 MCHC 32.9 RDW 14.6 Plt Count 209 MPV 10.2 Immature Gran % (Auto) 0.7 H Neut % (Auto) 80.4 H Lymph % (Auto) 7.2 L [place] % (Auto) 9.9 Eos % (Auto) 1.5 Baso % (Auto) 0.3 Lymph # (Auto) 2.0 [place] # (Auto) 2.8 H Eos # (Auto) 0.4 Baso # (Auto) 0.1 Abs Immat Gran (auto) 0.20 H Absolute Neuts (auto) 22.4 H Absolute Nucleated RBC 0.000 Nucleated RBC % (auto) 0.0 Neutrophils % (Manual) Band Neutrophils % Lymphocytes % (Manual) Monocytes % (Manual) Eosinophils % (Manual) Basophils % (Manual) Abs Neuts (Manual) Lymphocytes # (Manual) Monocytes # (Manual) Eosinophils # (Manual) Basophils # (Manual) Platelet Estimate Plt Morphology Comment RBC Morphology Smear Tech's Comments VERIFIED Smear Path Review SEE NOTE Sodium 137 Potassium 4.4 Chloride 104 Carbon Dioxide 28 Anion Gap 9 L BUN 13 Creatinine 1.00 Estim Creat Clear Calc 108.8 Estimated GFR > 60 Random Glucose 91 Calcium 9.7 Total Bilirubin 0.7 Direct Bilirubin 0.3 AST 11 ALT 12 Alkaline Phosphatase 66 Lactate Dehydrogenase 157 C-Reactive Protein 2.52 H Total Protein 6.7 Albumin 4.0 Procalcitonin [place] 0.59 L COVID-19 (LARRY) COVID-19 Clin Com Hep Bs Antigen Hep Bs Antibody Hep B Core Total Ab Hepatitis C Ab (EIA) HIV 1&2 Ab/P24 Ag 4thGn 03/16/21 03/16/21 03/16/21 08:15 10:51 11:00 WBC RBC Hgb Hct MCV MCH MCHC RDW Plt Count MPV Immature Gran % (Auto) Neut % (Auto) Lymph % (Auto) [place] % (Auto) Eos % (Auto) Baso % (Auto) Lymph # (Auto) [place] # (Auto) Eos # (Auto) Baso # (Auto) Abs Immat Gran (auto) Absolute Neuts (auto) Absolute Nucleated RBC Nucleated RBC % (auto) Neutrophils % (Manual) Band Neutrophils % Lymphocytes % (Manual) Monocytes % (Manual) Eosinophils % (Manual) Basophils % (Manual) Abs Neuts (Manual) Lymphocytes # (Manual) Monocytes # (Manual) Eosinophils # (Manual) Basophils # (Manual) Platelet Estimate Plt Morphology Comment RBC Morphology Smear Tech's Comments Smear Path Review Sodium Potassium Chloride Carbon Dioxide Anion Gap BUN Creatinine Estim Creat Clear Calc Estimated GFR Random Glucose Calcium Total Bilirubin Direct Bilirubin AST ALT Alkaline Phosphatase Lactate Dehydrogenase C-Reactive Protein Total Protein Albumin Procalcitonin 0.11 [place] COVID-19 (LARRY) Negative COVID-19 Clin Com See Note Hep Bs Antigen Negative Hep Bs Antibody REACTIVE Hep B Core Total Ab Nonreactive Hepatitis C Ab (EIA) Nonreactive HIV 1&2 Ab/P24 Ag 4thGn Nonreactive 03/17/21 08:15 WBC 19.5 H RBC 4.47 L Hgb 13.7 L Hct 41.7 L MCV 93.3 MCH 30.6 MCHC 32.9 RDW 14.7 Plt Count 193 MPV 10.4 Immature Gran % (Auto) Neut % (Auto) Lymph % (Auto) [place] % (Auto) Eos % (Auto) Baso % (Auto) Lymph # (Auto) [place] # (Auto) Eos # (Auto) Baso # (Auto) Abs Immat Gran (auto) Absolute Neuts (auto) Absolute Nucleated RBC 0.000 Nucleated RBC % (auto) 0.0 Neutrophils % (Manual) 71 Band Neutrophils % 8 H Lymphocytes % (Manual) 10 L Monocytes % (Manual) 6 Eosinophils % (Manual) 4 Basophils % (Manual) 1 Abs Neuts (Manual) 15.4 H Lymphocytes # (Manual) 2.0 Monocytes # (Manual) 1.2 Eosinophils # (Manual) 0.8 H Basophils # (Manual) 0.2 Platelet Estimate NORMAL Plt Morphology Comment NORMAL RBC Morphology NORMAL Smear Tech's Comments Smear Path Review Sodium Potassium Chloride Carbon Dioxide Anion Gap BUN Creatinine Estim Creat Clear Calc Estimated GFR Random Glucose Calcium Total Bilirubin Direct Bilirubin AST ALT Alkaline Phosphatase Lactate Dehydrogenase C-Reactive Protein Total Protein Albumin Procalcitonin [place] COVID-19 ([facility]ARRY) COVID-19 Clin Com Hep Bs Antigen Hep Bs Antibody Hep B Core Total Ab Hepatitis C Ab (EIA) HIV 1&2 Ab/P24 Ag 4thGn Imaging Radiology Impressions: ITS Impressions Chest X-Ray 03/16/21 11:10 IMPRESSION: No acute disease. Head CT 03/16/21 12:33 IMPRESSION: Mild inflammatory changes in the frontal and ethmoid sinuses otherwise unremarkable exam.. Medications Medications Current Medications Acetaminophen (Acetaminophen 325 Mg Tablet) 650 mg PO Q6H PRN PRN Reason: Headache/Pain Mild Scale (1-3) Last Admin: 03/14/21 23:17 Dose: 650 mg Documented by: Al Hydroxide/Mg Hydroxide (Magnesium Hydrox/Alum Hydrox 30 Ml Oral.Susp) 30 ml PO Q6H PRN PRN Reason: Heartburn/Nausea Amlodipine Besylate (Amlodipine Besylate 2.5 Mg Tablet) 2.5 mg PO DAILY [facility]; Protocol Last Admin: 03/17/21 10:46 Dose: 2.5 mg Documented by: Benztropine Mesylate (Benztropine Mesylate 0.5 Mg Tablet) 0.5 mg PO BID [facility] Last Admin: 03/15/21 21:47 Dose: 0.5 mg Documented by: Chlorpromazine HCl (Chlorpromazine Hcl 100 Mg Tablet) 200 mg PO Q2H PRN PRN Reason: agitation Last Admin: 03/17/21 03:39 Dose: 200 mg Documented by: Chlorpromazine HCl (Chlorpromazine Hcl 100 Mg Tablet) 100 mg PO TID [facility] Last Admin: 03/15/21 21:46 Dose: 100 mg Documented by: Clonidine (Clonidine 0.1 Mg Patch.Tdwk) 0.1 mg TRANSDERMA Th@0900 [facility]; Protocol Last Admin: 03/17/21 11:32 Dose: 0.1 mg Documented by: Clonidine HCl (Clonidine Hcl 0.1 Mg Tablet) 0.1 mg PO Q2H PRN; Protocol PRN Reason: Anxiety Last Admin: 03/13/21 13:42 Dose: 0.1 mg Documented by: Fluconazole (Fluconazole 100 Mg Tablet) 100 mg PO DAILY [facility] Stop: 03/26/21 10:29 Last Admin: 03/17/21 10:46 Dose: 100 mg Documented by: Gabapentin (Gabapentin 300 Mg Capsule) 600 mg PO TID [facility] Last Admin: 03/17/21 10:22 Dose: Not Given Documented by: Lidocaine (Lidocaine 4 % Patch Adh..Patch) 1 patch TRANSDERMA DAILY [facility]; Protocol Last Admin: 03/17/21 10:48 Dose: 1 patch Documented by: Magnesium Hydroxide (Milk Of Magnesia 30 Ml Oral.Susp) 30 ml PO DAILY PRN PRN Reason: Constipation Nicotine Polacrilex (Nicotine Polacrilex 2 Mg Gum) 2 mg BUCCAL Q2H PRN PRN Reason: Nicotine Cravings Last Admin: 03/14/21 15:28 Dose: 2 mg Documented by: Prazosin HCl (Prazosin Hcl 1 Mg Capsule) 2 mg PO BEDTIME [facility]; Protocol Last Admin: 03/16/21 19:52 Dose: 2 mg Documented by: Propranolol HCl (Propranolol Hcl La 60 Mg Cap.Sa.24h) 60 mg PO BEDTIME [facility]; Protocol Last Admin: 03/16/21 20:48 Dose: 60 mg Documented by: Senna/Docusate Sodium (Sennosides/Docusate Sodium Tablet) 2 tab PO BEDTIME [facility]I Last Admin: 03/16/21 20:47 Dose: 2 tab Documented by: Trazodone HCl (Trazodone Hcl 50 Mg Tablet) 50 mg PO BEDTIME PRN PRN Reason: Insomnia Last Admin: 03/17/21 01:23 Dose: 50 mg Documented by: Allergies Allergies Allergy/AdvReac Type Severity Reaction Status Date / Time No Known Allergies Allergy Unverified 11/13/19 18:30 seasonal Allergy Unknown Uncoded 10/08/17 00:00 Assessment & Plan Assessment & Plan (1) Leukocytosis: Status: Acute Code(s): D72.829 - Elevated white blood cell count, unspecified Assessment and Plan: 40yo M admitted to inpatient psychiatry with SI from PTSD/anxiety and found to have leukocytosis/neutrophilia. Noted to have thrush. HIV Ab/Ag negative. 1. Leukocytosis/neutrophilia - No sign of infection other than oral thrush which shouldn't really cause leukocytosis. Will repeat CBC in am with manual differential/pathology review. Add LDH level. Blood cultures sent, pending; also ordered urinalysis/microscopy/culture. If neutrophilia persists and no obvious infectious cause is found, consider ID consultation and hematology consultation and peripheral flow cytometry. Medication-induced neutrophilia is reported with lithium, which has already been discontinued. 2. Thrush - Unclear cause- he's not on steroids or other immunosuppressives. HIV Ab/Ag is negative, but will r/o acute HIV with an RNA/viral load, to be drawn in am. Presence of swallowing symptoms suggests some esophageal involvement as well. Treat with fluconazole 200 mg today, then 100 mg daily, total 10 days. 3. Delirium by report - In my opinion, he is not Thank you for this consultation. We will continue to follow along with you. 03/17/21 Continue current plan of care. WBC trending down significantly today. I spent 25 minutes with the patient and/or on the patient floor today, greater than?50% of which was spent counseling/coordinating care. Patient educated on: medication risk/benefits and therapeutic strategies Informed Consent: does not understand Reason for contiued inpatient stay Substantial Risk for: harm to self, harm to others, inability to function and rapid decompensation
[2021-03-17] MEDS: Gabapentin 300 MG CAPSULE 600 MG PO ×2 (14:09→21:14)
[2021-03-17] MEDS: cloNIDine HCL 0.1 MG TABLET PO (17:52)
[2021-03-17 17:56] VITALS: BP 106/61; PULSE 80; TEMP 36.6
[2021-03-17] MEDS: Nicotine Polacrilex 2 MG GUM BUCCAL (18:18)
[2021-03-17] MEDS: Sennosides/Docusate Sodium TABLET 2 TAB PO (21:14)
[2021-03-17] MEDS: Propranolol HCL LA 60 MG CAP.SA.24H PO (21:14)
[2021-03-17] MEDS: Prazosin HCL 1 MG CAPSULE 2 MG PO (21:14)
[2021-03-18 07:54] LABS: Basophils Absolute Auto 0.1 X10*3/uL (0.0-0.2); Basophils Percent Auto 0.4 % (0-2); Eosinophils Absolute Auto 0.5 X10*3/uL (0.0-0.4); Hematocrit 43.5 % (42.0-52.0); Hemoglobin 14.6 g/dl (14.0-18.0); Imm Gran Abs Auto 0.12 X10*3/uL (0.00-0.03); Imm Gran Pct Auto 0.7 % (0.0-0.4); Lymphocytes Absolute Auto 3.9 X10*3/uL (1.2-4.9); Lymphocytes Percent Auto 21.5 % (20-40); MANUAL DIFF FLAG SCAN; Mean Corpuscular HGB Conc 33.6 g/dl (31.0-36.0); Mean Corpuscular Hemoglobin 31.5 pg (27.0-33.0); Mean Corpuscular Volume 93.8 fL (80.0-98.0); Mean Platelet Volume 10.3 fL (9.4-12.4); Monocytes Absolute Auto 2.1 X10*3/uL (0.1-1.2); Monocytes Percent Auto 11.7 % (2-11); Neutrophils Absolute Auto 11.2 x10*3/uL (2.0-8.3); Neutrophils Percent Auto 62.7 % (45-73); Platelet Count 203 X10*3/uL (160-400); Red Blood Count 4.64 X10*6/uL (4.60-5.80); Red Cell Distribution Width 14.8 % (11.0-16.0); SCAN SMEAR FLAG 1; White Blood Count 17.9 X10*3/uL (4.8-10.8)
[2021-03-18 08:00] VITALS: BP 108/74; PULSE 72; RESP 16; TEMP 36.4; O2SAT 97
[2021-03-18] MEDS: amLODIPine Besylate 2.5 MG TABLET PO (08:02)
[2021-03-18] MEDS: Gabapentin 300 MG CAPSULE 600 MG PO ×3 (08:02→21:23)
[2021-03-18] MEDS: Fluconazole 100 MG TABLET PO (08:02)
[2021-03-18] MEDS: Lidocaine 4 % Patch ADH..PATCH 1 PATCH TRANSDERMA (08:03)
[2021-03-18 08:14] LABS: SLIDE REVIEW VERIFIED
[2021-03-18] MEDS: QUEtiapine Fumarate 25 MG TABLET PO (11:21)
--- NOTE | 2021-03-18 15:05 | P.PNPSI_ITS ---
Subjective Subjective Date of Service: 03/18/21 Reason For Visit: SI Interim History: Decrease in confusion. Alert, more engaged, reports SI, anxiety, depression, mood dysregulation. Discussed most recent discharge and believes that regime worked well, however, he stopped it after leaving the hospital (benztropine 1 bid, gabapentin 900 mg tid, [place] 2 mg hs, propranolol [place] 60 mg hs, Rispedal 1 mg bid Trazodone 200 mg HS prn) Medication Compliance: Yes Side effects from medications: No Attending Groups: Yes Review of Systems Acute medical concerns: No Medical Review of Systems: unchanged Review of Systems Reports behavioral changes Psychiatric: Reports abnormal sleep pattern, Reports anxiety, Reports behavioral changes, Reports depression, Reports difficulty concentrating, Reports auditory hallucinations, Reports hopelessness, Reports anhedonia, Reports mood swings, Re ports paranoia and Reports suicidal ideation Mental Status Exam Mental Status Exam Patient Appearance: Appropriate Patient Orientation: Person, Place and Situation Level of Consciousness: Alert Patient Behavior: Talkative, Suspicious, Anxious, Fatigued, Distractible, Confused (decreasing) and Good Eye Contact Mood Description: Depressed and Anxious Affect Description: Anxious Patient Cognition Impaired: No Ability to Follow Directions: Good Speech Pattern: Spontaneous Speech Memory Description: Remote Impaired and Episodic Impaired Hallucinations: Auditory Delusions: Paranoid Ideation Thought Process: Distracted and Rumination Thought Content: positive for [place], positive for Circumstantial, positive for Persever[place] and positive for Suicidal Ideation Depressive Symptoms: Increased Anxiety, Increased Irritability, Difficulty Sleeping, Hopelessness, Thoughts of /Suicide and Difficulty Concentrating Judgement: Fair Diagnostics Vital Signs (24Hr): Vital Signs - 24 hr 03/17/21 17:56 03/18/21 08:00 Temperature 98 F 97.5 F Pulse Rate 80 72 Respiratory Rate 16 Blood Pressure 106/61 108/74 Pulse Oximetry 97 BMI result Body Mass Index 26.9 Labs Results: 03/18/21 07:38 03/16/21 08:15 Labs: Laboratory Results - last 48 hr 03/16/21 03/16/21 03/16/21 08:15 08:15 10:51 WBC RBC Hgb Hct MCV MCH MCHC RDW Plt Count MPV Immature Gran % (Auto) Neut % (Auto) Lymph % (Auto) [place] % (Auto) Eos % (Auto) Baso % (Auto) Lymph # (Auto) [place] # (Auto) Eos # (Auto) Baso # (Auto) Abs Immat Gran (auto) Absolute Neuts (auto) Absolute Nucleated RBC Nucleated RBC % (auto) Neutrophils % (Manual) Band Neutrophils % Lymphocytes % (Manual) Monocytes % (Manual) Eosinophils % (Manual) Basophils % (Manual) Abs Neuts (Manual) Lymphocytes # (Manual) Monocytes # (Manual) Eosinophils # (Manual) Basophils # (Manual) Platelet Estimate Plt Morphology Comment RBC Morphology Smear Tech's Comments Smear Path Review SEE NOTE Lactate Dehydrogenase 157 Hep Bs Antigen Negative 03/17/21 03/18/21 08:15 07:38 WBC 19.5 H 17.9 H RBC 4.47 L 4.64 Hgb 13.7 L 14.6 Hct 41.7 L 43.5 MCV 93.3 93.8 MCH 30.6 31.5 MCHC 32.9 33.6 RDW 14.7 14.8 Plt Count 193 203 MPV 10.4 10.3 Immature Gran % (Auto) 0.7 H Neut % (Auto) 62.7 Lymph % (Auto) 21.5 [place] % (Auto) 11.7 H Eos % (Auto) 3.0 Baso % (Auto) 0.4 Lymph # (Auto) 3.9 [place] # (Auto) 2.1 H Eos # (Auto) 0.5 H Baso # (Auto) 0.1 Abs Immat Gran (auto) 0.12 H Absolute Neuts (auto) 11.2 H Absolute Nucleated RBC 0.000 0.000 Nucleated RBC % (auto) 0.0 0.0 Neutrophils % (Manual) 71 Band Neutrophils % 8 H Lymphocytes % (Manual) 10 L Monocytes % (Manual) 6 Eosinophils % (Manual) 4 Basophils % (Manual) 1 Abs Neuts (Manual) 15.4 H Lymphocytes # (Manual) 2.0 Monocytes # (Manual) 1.2 Eosinophils # (Manual) 0.8 H Basophils # (Manual) 0.2 Platelet Estimate NORMAL Plt Morphology Comment NORMAL RBC Morphology NORMAL Smear Tech's Comments VERIFIED Smear Path Review Lactate Dehydrogenase Hep Bs Antigen Imaging Radiology Impressions: ITS Impressions Chest X-Ray 03/16/21 11:10 IMPRESSION: No acute disease. Head CT 03/16/21 12:33 IMPRESSION: Mild inflammatory changes in the frontal and ethmoid sinuses otherwise unremarkable exam.. Medications Medications Current Medications Acetaminophen (Acetaminophen 325 Mg Tablet) 650 mg PO Q6H PRN PRN Reason: Headache/Pain Mild Scale (1-3) Last Admin: 03/14/21 23:17 Dose: 650 mg Documented by: Al Hydroxide/Mg Hydroxide (Magnesium Hydrox/Alum Hydrox 30 Ml Oral.Susp) 30 ml PO Q6H PRN PRN Reason: Heartburn/Nausea Amlodipine Besylate (Amlodipine Besylate 2.5 Mg Tablet) 2.5 mg PO DAILY [facility]; Protocol Last Admin: 03/18/21 08:02 Dose: 2.5 mg Documented by: Benztropine Mesylate (Benztropine Mesylate 0.5 Mg Tablet) 0.5 mg PO BID [facility] Last Admin: 03/15/21 21:47 Dose: 0.5 mg Documented by: Chlorpromazine HCl (Chlorpromazine Hcl 100 Mg Tablet) 200 mg PO Q2H PRN PRN Reason: agitation Last Admin: 03/17/21 23:51 Dose: 200 mg Documented by: Chlorpromazine HCl (Chlorpromazine Hcl 100 Mg Tablet) 100 mg PO TID [facility] Last Admin: 03/15/21 21:46 Dose: 100 mg Documented by: Clonidine (Clonidine 0.1 Mg Patch.Tdwk) 0.1 mg TRANSDERMA Th@0900 [facility]; Protocol Last Admin: 03/17/21 11:32 Dose: 0.1 mg Documented by: Clonidine HCl (Clonidine Hcl 0.1 Mg Tablet) 0.1 mg PO Q2H PRN; Protocol PRN Reason: Anxiety Last Admin: 03/17/21 17:52 Dose: 0.1 mg Documented by: Fluconazole (Fluconazole 100 Mg Tablet) 100 mg PO DAILY [facility] Stop: 03/26/21 10:29 Last Admin: 03/18/21 08:02 Dose: 100 mg Documented by: Gabapentin (Gabapentin 300 Mg Capsule) 600 mg PO TID [facility] Last Admin: 03/18/21 14:19 Dose: 600 mg Documented by: Lidocaine (Lidocaine 4 % Patch Adh..Patch) 1 patch TRANSDERMA DAILY [facility]; Protocol Last Admin: 03/18/21 08:03 Dose: 1 patch Documented by: Magnesium Hydroxide (Milk Of Magnesia 30 Ml Oral.Susp) 30 ml PO DAILY PRN PRN Reason: Constipation Nicotine Polacrilex (Nicotine Polacrilex 2 Mg Gum) 2 mg BUCCAL Q2H PRN PRN Reason: Nicotine Cravings Last Admin: 03/17/21 18:18 Dose: 2 mg Documented by: Prazosin HCl (Prazosin Hcl 1 Mg Capsule) 2 mg PO BEDTIME [facility]; Protocol Last Admin: 03/17/21 21:14 Dose: 2 mg Documented by: Propranolol HCl (Propranolol Hcl La 60 Mg Cap.Sa.24h) 60 mg PO BEDTIME [facility]; Protocol Last Admin: 03/17/21 21:14 Dose: 60 mg Documented by: Quetiapine Fumarate (Quetiapine Fumarate 25 Mg Tablet) 25 mg PO TID PRN PRN Reason: anxiety/restlessness Last Admin: 03/18/21 11:21 Dose: 25 mg Documented by: Senna/Docusate Sodium (Sennosides/Docusate Sodium Tablet) 2 tab PO BEDTIME [facility] Last Admin: 03/17/21 21:14 Dose: 2 tab Documented by: Trazodone HCl (Trazodone Hcl 50 Mg Tablet) 50 mg PO BEDTIME PRN PRN Reason: Insomnia Last Admin: 03/17/21 23:52 Dose: 50 mg Documented by: Allergies Allergies Allergy/AdvReac Type Severity Reaction Status Date / Time No Known Allergies Allergy Unverified 11/13/19 18:30 seasonal Allergy Unknown Uncoded 10/08/17 00:00 Assessment & Plan Assessment & Plan (1) Leukocytosis: Status: Acute Code(s): D72.829 - Elevated white blood cell count, unspecified Assessment and Plan: 40yo M admitted to inpatient psychiatry with SI from PTSD/anxiety and found to have leukocytosis/neutrophilia. Noted to have thrush. HIV Ab/Ag negative. 1. Leukocytosis/neutrophilia - No sign of infection other than oral thrush which shouldn't really cause leukocytosis. Will repeat CBC in am with manual differential/pathology review. Add LDH level. Blood cultures sent, pending; also ordered urinalysis/ microscopy/culture. If neutrophilia persists and no obvious infectious cause is found, consider ID consultation and hematology consultation and peripheral flow cytometry. Medication-induced neutrophilia is reported with lithium, which has already been discontinued. 2. Thrush - Unclear cause- he's not on steroids or other immunosuppressives. HIV Ab/Ag is negative, but will r/o acute HIV with an RNA/viral load, to be drawn in am. Presence of swallowing symptoms suggests some esophageal involvement as well. Treat with fluconazole 200 mg today, then 100 mg daily, total 10 days. 3. Delirium by report - In my opinion, he is not Thank you for this consultation. We will continue to follow along with you. 03/17/21 Continue current plan of care. WBC trending down significantly today. 03/18/21 Reporting anxiety, depression, voices, SI. Significant MSE improvement Continue current plan at this time, changes as pt clears to work back to a regime he reports was helpful. I spent 25 minutes with the patient and/or on the patient floor today, greater than?50% of which was spent counseling/coordinating care. Patient educated on: medication risk/benefits, therapeutic strategies and medical condition Informed Consent: further education needed Reason for contiued inpatient stay Substantial Risk for: harm to self, inability to function and rapid decompensation
[2021-03-18] MEDS: Nicotine Polacrilex 2 MG GUM BUCCAL ×2 (16:38→19:10)
[2021-03-18] MEDS: chlorproMAZINE HCl 100 MG TABLET 200 MG PO (18:47)
[2021-03-18 20:33] VITALS: BP 126/66; PULSE 80; RESP 18; TEMP 36.5; O2SAT 80
[2021-03-18] MEDS: Sennosides/Docusate Sodium TABLET 2 TAB PO (21:23)
[2021-03-18] MEDS: Prazosin HCL 1 MG CAPSULE 2 MG PO (21:23)
[2021-03-18] MEDS: Divalproex Sodium 250 MG TABLET.DR PO (21:24)
[2021-03-18] MEDS: Propranolol HCL LA 60 MG CAP.SA.24H PO (21:24)
[2021-03-19] MEDS: Acetaminophen 325 MG TABLET 650 MG PO ×2 (05:16→13:22)
[2021-03-19] MEDS: cloNIDine HCL 0.1 MG TABLET PO (05:19)
[2021-03-19 05:22] VITALS: BP 125/77; PULSE 64; RESP 16; TEMP 36.2; O2SAT 100
[2021-03-19] MEDS: Fluconazole 100 MG TABLET PO (08:14)
[2021-03-19] MEDS: amLODIPine Besylate 2.5 MG TABLET PO (08:14)
[2021-03-19] MEDS: Lidocaine 4 % Patch ADH..PATCH 1 PATCH TRANSDERMA (08:14)
[2021-03-19] MEDS: Gabapentin 300 MG CAPSULE 600 MG PO ×3 (08:14→19:59)
[2021-03-19] MEDS: Divalproex Sodium 250 MG TABLET.DR PO ×2 (08:14→19:59)
[2021-03-19] MEDS: Nicotine Polacrilex 2 MG GUM BUCCAL ×3 (09:23→19:12)
--- NOTE | 2021-03-19 12:27 | P.PNPSI_ITS ---
Subjective Subjective Date of Service: 03/19/21 Reason For Visit: SI Subjective Notes: Conditional Voluntary Interim History: Martin was visible on the unit and is superficially engaged. Nursing confirm that he is showing slow improvement and there is no behavioral dyscontrol Medication Compliance: Yes Review of Systems Review of Systems Could not be assessed Yes all other systems are reviewed and are negative and Unobtainable due to mental status Reports behavioral changes, Reports confusion and Reports memory loss Psychiatric: Reports abnormal sleep pattern, Reports anxiety, Reports behavioral changes, Reports change in appetite, Reports confusion, Reports depression, Reports difficulty concentrating, Reports auditory hallucinations, Reports hopelessness, Reports irritability, Reports anhedonia, Reports memory loss, R eports mood swings, Reports paranoia, Reports visual hallucinations, Reports hallucinations and Reports suicidal ideation Mental Status Exam Mental Status Exam Narrative: appropriately dressed and groomed. seated on his bed, unsteady. cooperative. speech nml rate, nml amount, nml latency. thoughts disorganized. affect constricted, normo-intense, non-labile. no SI/HI/VH expressed. endorses AH. Patient Appearance: Appropriate Patient Orientation: Person, Place and Situation Level of Consciousness: Alert Patient Behavior: Talkative, Suspicious, Anxious, Fatigued, Distractible, Confused (decreasing) and Good Eye Contact Mood Description: Depressed and Anxious Affect Description: Anxious Patient Cognition Impaired: No Ability to Follow Directions: Good Speech Pattern: Spontaneous Speech Memory Description: Remote Impaired and Episodic Impaired Diagnostics Vital Signs (24Hr): Vital Signs - 24 hr 03/18/21 20:33 03/19/21 05:22 Temperature 97.7 F 97.2 F Pulse Rate 80 64 Respiratory Rate 18 16 Blood Pressure 126/66 125/77 Pulse Oximetry 80 L 100 BMI result Body Mass Index 26.9 Labs Results: 03/18/21 07:38 03/16/21 08:15 Labs: Laboratory Results - last 48 hr 03/17/21 03/18/21 03/18/21 08:15 07:38 Unknown WBC 17.9 H RBC 4.64 Hgb 14.6 Hct 43.5 MCV 93.8 MCH 31.5 MCHC 33.6 RDW 14.8 Plt Count 203 MPV 10.3 Immature Gran % (Auto) 0.7 H Neut % (Auto) 62.7 Lymph % (Auto) 21.5 [place] % (Auto) 11.7 H Eos % (Auto) 3.0 Baso % (Auto) 0.4 Lymph # (Auto) 3.9 [place] # (Auto) 2.1 H Eos # (Auto) 0.5 H Baso # (Auto) 0.1 Abs Immat Gran (auto) 0.12 H Absolute Neuts (auto) 11.2 H Absolute Nucleated RBC 0.000 Nucleated RBC % (auto) 0.0 Neutrophils % (Manual) 71 Band Neutrophils % 8 H Lymphocytes % (Manual) 10 L Monocytes % (Manual) 6 Eosinophils % (Manual) 4 Basophils % (Manual) 1 Abs Neuts (Manual) 15.4 H Lymphocytes # (Manual) 2.0 Monocytes # (Manual) 1.2 Eosinophils # (Manual) 0.8 H Basophils # (Manual) 0.2 Platelet Estimate NORMAL Plt Morphology Comment NORMAL RBC Morphology NORMAL Smear Tech's Comments VERIFIED Cancelled Urine Test SEE NOTE Imaging Radiology Impressions: ITS Impressions Chest X-Ray 03/16/21 11:10 IMPRESSION: No acute disease. Head CT 03/16/21 12:33 IMPRESSION: Mild inflammatory changes in the frontal and ethmoid sinuses otherwise unremarkable exam.. Medications Medications Current Medications Acetaminophen (Acetaminophen 325 Mg Tablet) 650 mg PO Q6H PRN PRN Reason: Headache/Pain Mild Scale (1-3) Last Admin: 03/19/21 05:16 Dose: 650 mg Documented by: Al Hydroxide/Mg Hydroxide (Magnesium Hydrox/Alum Hydrox 30 Ml Oral.Susp) 30 ml PO Q6H PRN PRN Reason: Heartburn/Nausea Amlodipine Besylate (Amlodipine Besylate 2.5 Mg Tablet) 2.5 mg PO DAILY [facility]; Protocol Last Admin: 03/19/21 08:14 Dose: 2.5 mg Documented by: Benztropine Mesylate (Benztropine Mesylate 0.5 Mg Tablet) 0.5 mg PO BID [facility] Last Admin: 03/15/21 21:47 Dose: 0.5 mg Documented by: Chlorpromazine HCl (Chlorpromazine Hcl 100 Mg Tablet) 200 mg PO Q2H PRN PRN Reason: agitation Last Admin: 03/18/21 18:47 Dose: 200 mg Documented by: Chlorpromazine HCl (Chlorpromazine Hcl 100 Mg Tablet) 100 mg PO TID [facility] Last Admin: 03/15/21 21:46 Dose: 100 mg Documented by: Clonidine (Clonidine 0.1 Mg Patch.Tdwk) 0.1 mg TRANSDERMA Th@0900 [facility]; Protocol Last Admin: 03/17/21 11:32 Dose: 0.1 mg Documented by: Clonidine HCl (Clonidine Hcl 0.1 Mg Tablet) 0.1 mg PO Q2H PRN; Protocol PRN Reason: Anxiety Last Admin: 03/19/21 05:19 Dose: 0.1 mg Documented by: Divalproex Sodium (Divalproex Sodium 250 Mg Tablet.) 250 mg PO BID [facility] Last Admin: 03/19/21 08:14 Dose: 250 mg Documented by: Fluconazole (Fluconazole 100 Mg Tablet) 100 mg PO DAILY [facility] Stop: 03/26/21 10:29 Last Admin: 03/19/21 08:14 Dose: 100 mg Documented by: Gabapentin (Gabapentin 300 Mg Capsule) 600 mg PO TID [facility] Last Admin: 03/19/21 08:14 Dose: 600 mg Documented by: Lidocaine (Lidocaine 4 % Patch Adh..Patch) 1 patch TRANSDERMA DAILY [facility]; Protocol Last Admin: 03/19/21 08:14 Dose: 1 patch Documented by: Magnesium Hydroxide (Milk Of Magnesia 30 Ml Oral.Susp) 30 ml PO DAILY PRN PRN Reason: Constipation Nicotine Polacrilex (Nicotine Polacrilex 2 Mg Gum) 2 mg BUCCAL Q2H PRN PRN Reason: Nicotine Cravings Last Admin: 03/19/21 09:23 Dose: 2 mg Documented by: Prazosin HCl (Prazosin Hcl 1 Mg Capsule) 2 mg PO BEDTIME [facility]; Protocol Last Admin: 03/18/21 21:23 Dose: 2 mg Documented by: Propranolol HCl (Propranolol Hcl La 60 Mg Cap.Sa.24h) 60 mg PO BEDTIME [facility]; Protocol Last Admin: 03/18/21 21:24 Dose: 60 mg Documented by: Quetiapine Fumarate (Quetiapine Fumarate 50 Mg Tablet) 50 mg PO TID PRN PRN Reason: anxiety/restlessness Senna/Docusate Sodium (Sennosides/Docusate Sodium Tablet) 2 tab PO BEDTIME [facility] Last Admin: 03/18/21 21:23 Dose: 2 tab Documented by: Trazodone HCl (Trazodone Hcl 50 Mg Tablet) 50 mg PO BEDTIME PRN PRN Reason: Insomnia Last Admin: 03/17/21 23:52 Dose: 50 mg Documented by: Allergies Allergies Allergy/AdvReac Type Severity Reaction Status Date / Time No Known Allergies Allergy Unverified 11/13/19 18:30 seasonal Allergy Unknown Uncoded 10/08/17 00:00 Assessment & Plan Assessment & Plan (1) Leukocytosis: Status: Acute Code(s): D72.829 - Elevated white blood cell count, unspecified Assessment and Plan: 40yo M admitted to inpatient psychiatry with SI from PTSD/anxiety and found to have leukocytosis/neutrophilia. Noted to have thrush. HIV Ab/Ag negative. 1. Leukocytosis/neutrophilia - No sign of infection other than oral thrush which shouldn't really cause leukocytosis. Will repeat CBC in am with manual differential/pathology review. Add LDH level. Blood cultures sent, pending; also ordered urinalysis/microscopy/culture. If neutrophilia persists and no obvious infectious cause is found, consider ID consultation and hematology consultation and peripheral flow cytometry. Medication-induced neutrophilia is reported with lithium, which has already been discontinued. 2. Thrush - Unclear cause- he's not on steroids or other immunosuppressives. HIV Ab/Ag is negative, but will r/o acute HIV with an RNA/viral load, to be drawn in am. Presence of swallowing symptoms suggests some esophageal involvement as well. Treat with fluconazole 200 mg today, then 100 mg daily, total 10 days. 3. Delirium by report - In my opinion, he is not Thank you for this consultation. We will continue to follow along with you. 03/17/21 Continue current plan of care. WBC trending down significantly today. 03/18/21 Reporting anxiety, depression, voices, SI. Significant MSE improvement Continue current plan at this time, changes as pt clears to work back to a regime he reports was helpful. 03/19/21 No changes to the above I spent minutes with the patient and/or on the patient floor today, greater than?50% of which was spent counseling/coordinating care. Patient educated on: diagnosis Informed Consent: further education needed Reason for contiued inpatient stay Substantial Risk for: rapid decompensation
[2021-03-19] MEDS: QUEtiapine Fumarate 50 MG TABLET PO (16:10)
[2021-03-19 18:00] VITALS: BP 139/81; PULSE 86
[2021-03-19] MEDS: Sennosides/Docusate Sodium TABLET 2 TAB PO (19:59)
[2021-03-19] MEDS: Propranolol HCL LA 60 MG CAP.SA.24H PO (20:00)
[2021-03-19] MEDS: Prazosin HCL 1 MG CAPSULE 2 MG PO (20:00)
[2021-03-19 20:02] VITALS: BP 146/82; PULSE 107
[2021-03-20] MEDS: traZODone HCL 50 MG TABLET PO ×2 (00:03→23:41)
[2021-03-20] MEDS: Lidocaine 4 % Patch ADH..PATCH 1 PATCH TRANSDERMA (04:23)
[2021-03-20 04:59] VITALS: BP 121/75; PULSE 73
[2021-03-20] MEDS: Nicotine Polacrilex 2 MG GUM BUCCAL ×2 (04:59→15:53)
[2021-03-20] MEDS: cloNIDine HCL 0.1 MG TABLET PO ×2 (04:59→17:50)
[2021-03-20 06:00] VITALS: BP 117/62; PULSE 72; RESP 16; TEMP 36.6; O2SAT 97
[2021-03-20 08:00] VITALS: BP 121/67; PULSE 88
[2021-03-20] MEDS: Divalproex Sodium 250 MG TABLET.DR PO ×2 (08:11→21:00)
[2021-03-20] MEDS: amLODIPine Besylate 2.5 MG TABLET PO (08:11)
[2021-03-20] MEDS: Fluconazole 100 MG TABLET PO (08:11)
[2021-03-20] MEDS: Gabapentin 300 MG CAPSULE 600 MG PO ×3 (08:11→21:00)
[2021-03-20] MEDS: Nicotine 21 MG PATCH.TD24 TRANSDERMA (10:15)
[2021-03-20] MEDS: QUEtiapine Fumarate 50 MG TABLET PO (14:10)
[2021-03-20 17:51] VITALS: BP 170/80; PULSE 91
--- NOTE | 2021-03-20 18:34 | P.PNPSI_ITS ---
Subjective Subjective Date of Service: 03/20/21 Reason For Visit: SI Subjective Notes: Conditional Voluntary Interim History: Martin was visible on the unit and is superficially engaged. Nursing confirm that he is showing slow improvement and there is no behavioral dyscontrol He reports that he is not sleeping that well. He also complains of nicotine WD and feeling anxious. He agreed to a nicotine patch Review of Systems Review of Systems Could not be assessed Yes all other systems are reviewed and are negative and Unobtainable due to mental status Reports behavioral changes, Reports confusion and Reports memory loss Psychiatric: Reports abnormal sleep pattern, Reports anxiety, Reports behavioral changes, Reports change in appetite, Reports confusion, Reports depression, Reports difficulty concentrating, Reports auditory hallucinations, Reports hopelessness, Reports irritability, Reports anhedonia, Reports memory loss, Reports mood swings, Reports paranoia, Reports visual hallucinations, Reports hallucinations and Reports suicidal ideation Mental Status Exam Mental Status Exam Narrative: appropriately dressed and groomed. seated on his bed, unsteady. cooperative. speech nml rate, nml amount, nml latency. thoughts disorganized. affect constricted, normo-intense, non-labile. no SI/HI/VH expressed. endorses AH. Patient Appearance: Appropriate Patient Orientation: Person, Place and Situation Level of Consciousness: Alert Patient Behavior: Talkative, Suspicious, Anxious, Fatigued, Distractible, Confused (decreasing) and Good Eye Contact Mood Description: Depressed and Anxious Affect Description: Anxious Patient Cognition Impaired: No Ability to Follow Directions: Good Speech Pattern: Spontaneous Speech Memory Description: Remote Impaired and Episodic Impaired Diagnostics Vital Signs (24Hr): Vital Signs - 24 hr 03/19/21 20:02 03/20/21 04:59 03/20/21 06:00 Temperature 97.9 F Pulse Rate 107 H 73 72 Respiratory Rate 16 Blood Pressure 146/82 H 121/75 117/62 Pulse Oximetry 97 03/20/21 08:00 03/20/21 17:51 Temperature Pulse Rate 88 91 Respiratory Rate Blood Pressure 121/67 170/80 H Pulse Oximetry BMI result Body Mass Index 26.9 Labs Results: 03/18/21 07:38 03/16/21 08:15 Labs: Laboratory Results - last 48 hr 03/18/21 Unknown Cancelled Urine Test SEE NOTE Imaging Radiology Impressions: ITS Impressions Chest X-Ray 03/16/21 11:10 IMPRESSION: No acute disease. Head CT 03/16/21 12:33 IMPRESSION: Mild inflammatory changes in the frontal and ethmoid sinuses otherwise unremarkable exam.. Medications Medications Current Medications Acetaminophen (Acetaminophen 325 Mg Tablet) 650 mg PO Q6H PRN PRN Reason: Headache/Pain Mild Scale (1-3) Last Admin: 03/19/21 13:22 Dose: 650 mg Documented by: Al Hydroxide/Mg Hydroxide (Magnesium Hydrox/Alum Hydrox 30 Ml Oral.Susp) 30 ml PO Q6H PRN PRN Reason: Heartburn/Nausea Amlodipine Besylate (Amlodipine Besylate 2.5 Mg Tablet) 2.5 mg PO DAILY [facility]; Protocol Last Admin: 03/20/21 08:11 Dose: 2.5 mg Documented by: Benztropine Mesylate (Benztropine Mesylate 0.5 Mg Tablet) 0.5 mg PO BID [facility] Last Admin: 03/15/21 21:47 Dose: 0.5 mg Documented by: Chlorpromazine HCl (Chlorpromazine Hcl 100 Mg Tablet) 200 mg PO Q2H PRN PRN Reason: agitation Last Admin: 03/18/21 18:47 Dose: 200 mg Documented by: Chlorpromazine HCl (Chlorpromazine Hcl 100 Mg Tablet) 100 mg PO TID [facility] Last Admin: 03/15/21 21:46 Dose: 100 mg Documented by: Clonidine (Clonidine 0.1 Mg Patch.Tdwk) 0.1 mg TRANSDERMA Th@0900 [facility]; Protocol Last Admin: 03/17/21 11:32 Dose: 0.1 mg Documented by: Clonidine HCl (Clonidine Hcl 0.1 Mg Tablet) 0.1 mg PO Q2H PRN; Protocol PRN Reason: Anxiety Last Admin: 03/20/21 17:50 Dose: 0.1 mg Documented by: Divalproex Sodium (Divalproex Sodium 250 Mg Tablet.) 250 mg PO BID [facility] Last Admin: 03/20/21 08:11 Dose: 250 mg Documented by: Fluconazole (Fluconazole 100 Mg Tablet) 100 mg PO DAILY [facility] Stop: 03/26/21 10:29 Last Admin: 03/20/21 08:11 Dose: 100 mg Documented by: Gabapentin (Gabapentin 300 Mg Capsule) 600 mg PO TID [facility] Last Admin: 03/20/21 14:10 Dose: 600 mg Documented by: Lidocaine (Lidocaine 4 % Patch Adh..Patch) 1 patch TRANSDERMA DAILY [facility]; Protocol Last Admin: 03/20/21 04:23 Dose: 1 patch Documented by: Magnesium Hydroxide (Milk Of Magnesia 30 Ml Oral.Susp) 30 ml PO DAILY PRN PRN Reason: Constipation Nicotine (Nicotine 21 Mg Patch.Td24) 21 mg TRANSDERMA DAILY [facility] Last Admin: 03/20/21 10:15 Dose: 21 mg Documented by: Nicotine Polacrilex (Nicotine Polacrilex 2 Mg Gum) 2 mg BUCCAL Q2H PRN PRN Reason: Nicotine Cravings Last Admin: 03/20/21 15:53 Dose: 2 mg Documented by: Prazosin HCl (Prazosin Hcl 1 Mg Capsule) 2 mg PO BEDTIME [facility]; Protocol Last Admin: 03/19/21 20:00 Dose: 2 mg Documented by: Propranolol HCl (Propranolol Hcl La 60 Mg Cap.Sa.24h) 60 mg PO BEDTIME [facility]; Protocol Last Admin: 03/19/21 20:00 Dose: 60 mg Documented by: Quetiapine Fumarate (Quetiapine Fumarate 50 Mg Tablet) 50 mg PO TID PRN PRN Reason: anxiety/restlessness Last Admin: 03/20/21 14:10 Dose: 50 mg Documented by: Senna/Docusate Sodium (Sennosides/Docusate Sodium Tablet) 2 tab PO BEDTIME [facility] Last Admin: 03/19/21 19:59 Dose: 2 tab Documented by: Trazodone HCl (Trazodone Hcl 50 Mg Tablet) 50 mg PO BEDTIME PRN PRN Reason: Insomnia Last Admin: 03/20/21 00:03 Dose: 50 mg Documented by: Allergies Allergies Allergy/AdvReac Type Severity Reaction Status Date / Time No Known Allergies Allergy Unverified 11/13/19 18:30 seasonal Allergy Unknown Uncoded 10/08/17 00:00 Assessment & Plan Assessment & Plan (1) Leukocytosis: Status: Acute Code(s): D72.829 - Elevated white blood cell count, unspecified Assessment and Plan: 40yo M admitted to inpatient psychiatry with SI from PTSD/anxiety and found to have leukocytosis/neutrophilia. Noted to have thrush. HIV Ab/Ag negative. 1. Leukocytosis/neutrophilia - No sign of infection other than oral thrush which shouldn't really cause leukocytosis. Will repeat CBC in am with manual differential/pathology review. Add LDH level. Blood cultures sent, pending; also ordered urinalysis/microscopy/culture. If neutrophilia persists and no obvious infectious cause is found, consider ID consultation and hematology consultation and peripheral flow cytometry. Medication-induced neutrophilia is reported with lithium, which has already been discontinued. 2. Thrush - Unclear cause- he's not on steroids or other immunosuppressives. HIV Ab/Ag is negative, but will r/o acute HIV with an RNA/viral load, to be drawn in am. Presence of swallowing symptoms suggests some esophageal involvement as well. Treat with fluconazole 200 mg today, then 100 mg daily, total 10 days. 3. Delirium by report - In my opinion, he is not Thank you for this consultation. We will continue to follow along with you. 03/17/21 Continue current plan of care. WBC trending down significantly today. 03/18/21 Reporting anxiety, depression, voices, SI. Significant MSE improvement Continue current plan at this time, changes as pt clears to work back to a scott me he reports was helpful. 03/19/21 No changes to the above 03/20/21 Nicotine patch. No other changes I spent minutes with the patient and/or on the patient floor today, greater than?50% of which was spent counseling/coordinating care. Patient educated on: diagnosis Informed Consent: further education needed Reason for contiued inpatient stay Substantial Risk for: rapid decompensation
[2021-03-20 18:39] VITALS: BP 135/85; PULSE 88
[2021-03-20] MEDS: Sennosides/Docusate Sodium TABLET 2 TAB PO (21:00)
[2021-03-20] MEDS: Prazosin HCL 1 MG CAPSULE 2 MG PO (21:00)
[2021-03-20] MEDS: Propranolol HCL LA 60 MG CAP.SA.24H PO (21:00)
[2021-03-21] MEDS: Acetaminophen 325 MG TABLET 650 MG PO ×2 (03:30→11:25)
[2021-03-21] MEDS: Nicotine Polacrilex 2 MG GUM BUCCAL ×3 (04:25→18:21)
--- NOTE | 2021-03-21 04:26 | PC.NURSE ---
Pt states that during his shower this morning he was blowing hi nose and noticed blood in the secretions. This job specification writer heard him from outside the shower that he was blowing his nose frequently and intensely. Will continue to monitor through shift.
[2021-03-21 04:48] VITALS: BP 120/76; PULSE 73; RESP 18; TEMP 36.1
[2021-03-21] MEDS: cloNIDine HCL 0.1 MG TABLET PO (06:56)
[2021-03-21] MEDS: Fluconazole 100 MG TABLET PO (08:22)
[2021-03-21] MEDS: amLODIPine Besylate 2.5 MG TABLET PO (08:22)
[2021-03-21] MEDS: Divalproex Sodium 250 MG TABLET.DR PO ×2 (08:22→19:33)
[2021-03-21] MEDS: Gabapentin 300 MG CAPSULE 600 MG PO ×2 (08:22→14:31)
[2021-03-21] MEDS: Nicotine 21 MG PATCH.TD24 TRANSDERMA (08:40)
[2021-03-21] MEDS: Lidocaine 4 % Patch ADH..PATCH 1 PATCH TRANSDERMA (08:44)
[2021-03-21] MEDS: QUEtiapine Fumarate 50 MG TABLET PO (11:26)
--- NOTE | 2021-03-21 17:42 | HO.PSYCHPN ---
Subjective Subjective Date of Service: 03/21/21 Reason For Visit: SI Interim History: Trazodone does not work. I feel anxiety-Seroquel and Clonidine don't work . I need to sleep- I am having flashbacks . Discussion of medication, symptoms not well managed currently-sleep, anxiety, flashbacks, nasal congestion, blood pressure, headache as a result of insomnia. Reports being awake at 3am, needing to shower x2 -having headache pain due to poor sleep and feeling non functional due to lack of rest, flashbacks. Reports cane and compression stockings are very helpful. Again reports that previous regime was useful and asks to return to this if possible. Medication Compliance: Yes Side effects from medications: No Attending Groups: Yes Review of Systems Acute medical concerns: No Medical Review of Systems: unchanged Review of Systems Psychiatric: Reports abnormal sleep pattern, Reports anxiety, Reports difficulty concentrating, Reports irritability, Reports anhedonia and Reports mood swings Mental Status Exam Mental Status Exam Patient Appearance: Appropriate Patient Orientation: Person, Place, Time and Situation Level of Consciousness: Alert Patient Behavior: Appropriate, Talkative, Cooperative and Good Eye Contact Mood Description: Anxious Affect Description: Anxious Patient Cognition Impaired: No Ability to Follow Directions: Good Speech Pattern: Spontaneous Speech and Soft-Spoken Memory Description: Episodic Impaired Hallucinations: None (denies) Thought Process: Rumination and Goal Oriented Thought Content: positive for [place] and positive for Goal Oriented Depressive Symptoms: Increased Anxiety, Insomnia, Difficulty Sleeping and Unexplained Headaches Judgement: Fair Diagnostics Vital Signs (24Hr): Vital Signs - 24 hr 03/20/21 17:51 03/20/21 18:39 03/21/21 04:48 Temperature 97 F Pulse Rate 91 88 73 Respiratory Rate 18 Blood Pressure 170/80 H 135/85 120/76 BMI result Body Mass Index 26.9 Labs Results: 03/18/21 07:38 03/16/21 08:15 Imaging Radiology Impressions: ITS Impressions Chest X-Ray 03/16/21 11:10 IMPRESSION: No acute disease. Head CT 03/16/21 12:33 IMPRESSION: Mild inflammatory changes in the frontal and ethmoid sinuses otherwise unremarkable exam.. Medications Medications Current Medications Acetaminophen (Acetaminophen 325 Mg Tablet) 650 mg PO Q6H PRN PRN Reason: Headache/Pain Mild Scale (1-3) Last Admin: 03/21/21 11:25 Dose: 650 mg Documented by: Al Hydroxide/Mg Hydroxide (Magnesium Hydrox/Alum Hydrox 30 Ml Oral.Susp) 30 ml PO Q6H PRN PRN Reason: Heartburn/Nausea Amlodipine Besylate (Amlodipine Besylate 2.5 Mg Tablet) 2.5 mg PO DAILY [facility]; Protocol Last Admin: 03/21/21 08:22 Dose: 2.5 mg Documented by: Benztropine Mesylate (Benztropine Mesylate 1 Mg Tablet) 1 mg PO BID [facility] Chlorpromazine HCl (Chlorpromazine Hcl 100 Mg Tablet) 200 mg PO Q2H PRN PRN Reason: agitation Last Admin: 03/18/21 18:47 Dose: 200 mg Documented by: Clonidine (Clonidine 0.1 Mg Patch.Tdwk) 0.1 mg TRANSDERMA Th@0900 [facility]; Protocol Last Admin: 03/17/21 11:32 Dose: 0.1 mg Documented by: Clonidine HCl (Clonidine Hcl 0.1 Mg Tablet) 0.1 mg PO Q2H PRN; Protocol PRN Reason: Anxiety Last Admin: 03/21/21 06:56 Dose: 0.1 mg Documented by: Divalproex Sodium (Divalproex Sodium 250 Mg Tablet.) 250 mg PO BID [facility] Last Admin: 03/21/21 08:22 Dose: 250 mg Documented by: Fluconazole (Fluconazole 100 Mg Tablet) 100 mg PO DAILY [facility] Stop: 03/26/21 10:29 Last Admin: 03/21/21 08:22 Dose: 100 mg Documented by: Gabapentin (Gabapentin 300 Mg Capsule) 900 mg PO TID [facility] Lidocaine (Lidocaine 4 % Patch Adh..Patch) 1 patch TRANSDERMA DAILY [facility]; Protocol Last Admin: 03/21/21 08:44 Dose: 1 patch Documented by: Lorazepam (Lorazepam 1 Mg Tablet) 1 mg PO BEDTIME PRN PRN Reason: insomnia Magnesium Hydroxide (Milk Of Magnesia 30 Ml Oral.Susp) 30 ml PO DAILY PRN PRN Reason: Constipation Nicotine (Nicotine 21 Mg Patch.Td24) 21 mg TRANSDERMA DAILY [facility] Last Admin: 03/21/21 08:40 Dose: 21 mg Documented by: Nicotine Polacrilex (Nicotine Polacrilex 2 Mg Gum) 2 mg BUCCAL Q2H PRN PRN Reason: Nicotine Cravings Last Admin: 03/21/21 14:35 Dose: 2 mg Documented by: Prazosin HCl (Prazosin Hcl 1 Mg Capsule) 3 mg PO BEDTIME [facility]; Protocol Propranolol HCl (Propranolol Hcl La 60 Mg Cap.Sa.24h) 60 mg PO BEDTIME [facility]; Protocol Last Admin: 03/20/21 21:00 Dose: 60 mg Documented by: Quetiapine Fumarate (Quetiapine Fumarate 50 Mg Tablet) 50 mg PO TID PRN PRN Reason: anxiety/restlessness Last Admin: 03/21/21 11:26 Dose: 50 mg Documented by: Risperidone (Risperidone 1 Mg Tablet) 1 mg PO BID [facility] Senna/Docusate Sodium (Sennosides/Docusate Sodium Tablet) 2 tab PO BEDTIME [facility] Last Admin: 03/20/21 21:00 Dose: 2 tab Documented by: Sodium Chloride (Sodium Chloride 0.65 % Nasal 44 Ml Sprbtl) 1 spray NOSTRIL-B Q1H PRN PRN Reason: Congestion Trazodone HCl (Trazodone Hcl 100 Mg Tablet) 100 mg PO BEDTIME PRN PRN Reason: Insomnia Allergies Allergies Allergy/AdvReac Type Severity Reaction Status Date / Time No Known Allergies Allergy Unverified 11/13/19 18:30 seasonal Allergy Unknown Uncoded 10/08/17 00:00 Assessment & Plan Assessment & Plan (1) Leukocytosis: Status: Acute Code(s): D72.829 - Elevated white blood cell count, unspecified Assessment and Plan: 40yo M admitted to inpatient psychiatry with SI from PTSD/anxiety and found to have leukocytosis/neutrophilia. Noted to have thrush. HIV Ab/Ag negative. 1. Leukocytosis/neutrophilia - No sign of infection other than oral thrush which shouldn't really cause leukocytosis. Will repeat CBC in am with manual differential/pathology review. Add LDH level. Blood cultures sent, pending; also ordered urinalysis/microscopy/culture. If neutrophilia persists and no obvious infectious cause is found, consider ID consultation and hematology consultation and peripheral flow cytometry. Medication-induced neutrophilia is reported with lithium, which has already been discontinued. 2. Thrush - Unclear cause- he's not on steroids or other immunosuppressives. HIV Ab/Ag is negative, but will r/o acute HIV with an RNA/viral load, to be drawn in am. Presence of swallowing symptoms suggests some esophageal involvement as well. Treat with fluconazole 200 mg today, then 100 mg daily, total 10 days. 3. Delirium by report - In my opinion, he is not Thank you for this consultation. We will continue to follow along with you. 03/17/21 Continue current plan of care. WBC trending down significantly today. 03/18/21 Reporting anxiety, depression, voices, SI. Significant MSE improvement Continue current plan at this time, changes as pt clears to work back to a regime he reports was helpful. 03/19/21 No changes to the above 03/20/21 Nicotine patch. No other changes 03/21/21 Pt reporting insomnia, anxiety and pain. Asking to return to previous regime as he found it more helpful with symptom mgt. 1. Discontinue scheduled Chlorpromazine, continue prn Chlorpromazine. 2. Increase benztropine to 1 mg bid, by history, per team, anxiety, agitation was akathesia in origin 3. Increase gabapentin to 900 mg tid, to address anxiety, pain, sleep. History of this dosage during previous admit. 4. Risperdal 1 mg bid, to address flashbacks, anxiety, sleep. History of this dosage during previous admit-not equal to chlorpromazine- (300 mg chlorpromazine = 3 mg Risperdal) 5. Increase Trazodone to 100 mg hs prn to address sleep- by history pt has used 200 mg 6. Ativan 1 mg hs prn insomnia to address sleep, anxiety- used with success by history 7. Increase Prazosin to 3 mg hs to address flashbacks.-used with success by history 8. [place] nasal spray prn congestion. I spent 25 minutes with the patient and/or on the patient floor today, greater than?50% of which was spent counseling/coordinating care. Patient educated on: medication risk/benefits and therapeutic strategies Informed Consent: understands and further education needed Reason for contiued inpatient stay Substantial Risk for: harm to self, inability to function, rapid decompensation and med/psych decompensation
[2021-03-21 19:15] VITALS: BP 140/85; PULSE 94
[2021-03-21] MEDS: Sennosides/Docusate Sodium TABLET 2 TAB PO (19:33)
[2021-03-21] MEDS: Prazosin HCL 1 MG CAPSULE 3 MG PO (19:33)
[2021-03-21] MEDS: risperiDONE 1 MG TABLET PO (19:34)
[2021-03-21] MEDS: Gabapentin 300 MG CAPSULE 900 MG PO (19:34)
[2021-03-21] MEDS: Propranolol HCL LA 60 MG CAP.SA.24H PO (19:34)
[2021-03-21] MEDS: LORazepam 1 MG TABLET PO (23:19)
[2021-03-21] MEDS: traZODone HCL 100 MG TABLET PO (23:20)
[2021-03-22 08:14] LABS: White Blood Count 12.4 X10*3/uL (4.8-10.8)
[2021-03-22 08:50] VITALS: BP 135/65; PULSE 83
[2021-03-22] MEDS: amLODIPine Besylate 2.5 MG TABLET PO (09:00)
[2021-03-22] MEDS: risperiDONE 1 MG TABLET PO (09:01)
[2021-03-22] MEDS: Gabapentin 300 MG CAPSULE 900 MG PO ×3 (09:01→21:07)
[2021-03-22] MEDS: Acetaminophen 325 MG TABLET 650 MG PO (09:01)
[2021-03-22] MEDS: Fluconazole 100 MG TABLET PO (09:01)
[2021-03-22] MEDS: Divalproex Sodium 250 MG TABLET.DR PO ×2 (09:01→21:08)
[2021-03-22] MEDS: QUEtiapine Fumarate 50 MG TABLET PO ×2 (09:03→16:25)
[2021-03-22] MEDS: Nicotine 21 MG PATCH.TD24 TRANSDERMA (09:06)
--- NOTE | 2021-03-22 10:00 | HO.PSYCHPN ---
Subjective Subjective Date of Service: 03/22/21 Reason For Visit: SI Subjective Notes: Conditional Voluntary Interim History: Pt reports hearing less voices but continues to do so. Pt reports he slept 4 hours, feeling tired this morning. He denies SI/HI. He reports feeling anxious and restless. He is more oriented and organized than last week. He continues to report seeing shadows. Per nursing, poor boundaries with female staff but able to be redirected. Medication Compliance: Yes Side effects from medications: No Review of Systems Review of Systems Could not be assessed Yes all other systems are reviewed and are negative and Unobtainable due to mental status Reports behavioral changes, Reports confusion and Reports memory loss Psychiatric: Reports abnormal sleep pattern, Reports anxiety, Reports behavioral changes, Reports change in appetite, Reports confusion, Reports depression, Reports difficulty concentrating, Reports auditory hallucinations, Reports hopelessness, Reports irritability, Reports anhedonia, Reports memory loss, Reports mood swings, Reports paranoia, Reports visual hallucinations, Reports hallucinations and Reports suicidal ideation Mental Status Exam Mental Status Exam Narrative: appropriately dressed and groomed. seated on his bed, unsteady. cooperative. speech nml rate, nml amount, nml latency. thoughts disorganized. affect constricted, normo-intense, non-labile. no SI/HI/VH expressed. endorses AH. Diagnostics Vital Signs (24Hr): Vital Signs - 24 hr 03/21/21 19:15 Pulse Rate 94 Blood Pressure 140/85 H BMI result Body Mass Index 26.9 Labs Results: 03/22/21 08:02 03/16/21 08:15 Labs: Laboratory Results - last 48 hr 03/22/21 08:02 WBC 12.4 H Imaging Radiology Impressions: ITS Impressions Chest X-Ray 03/16/21 11:10 IMPRESSION: No acute disease. Head CT 03/16/21 12:33 IMPRESSION: Mild inflammatory changes in the frontal and ethmoid sinuses otherwise unremarkable exam.. Medications Medications Current Medications Acetaminophen (Acetaminophen 325 Mg Tablet) 650 mg PO Q6H PRN PRN Reason: Headache/Pain Mild Scale (1-3) Last Admin: 03/22/21 09:01 Dose: 650 mg Documented by: Al Hydroxide/Mg Hydroxide (Magnesium Hydrox/Alum Hydrox 30 Ml Oral.Susp) 30 ml PO Q6H PRN PRN Reason: Heartburn/Nausea Amlodipine Besylate (Amlodipine Besylate 2.5 Mg Tablet) 2.5 mg PO DAILY [facility]; Protocol Last Admin: 03/22/21 09:00 Dose: 2.5 mg Documented by: Benztropine Mesylate (Benztropine Mesylate 1 Mg Tablet) 1 mg PO BID [facility] Chlorpromazine HCl (Chlorpromazine Hcl 100 Mg Tablet) 200 mg PO Q2H PRN PRN Reason: agitation Last Admin: 03/18/21 18:47 Dose: 200 mg Documented by: Clonidine (Clonidine 0.1 Mg Patch.Tdwk) 0.1 mg TRANSDERMA Th@0900 [facility]; Protocol Last Admin: 03/17/21 11:32 Dose: 0.1 mg Documented by: Clonidine HCl (Clonidine Hcl 0.1 Mg Tablet) 0.1 mg PO Q2H PRN; Protocol PRN Reason: Anxiety Last Admin: 03/21/21 06:56 Dose: 0.1 mg Documented by: Divalproex Sodium (Divalproex Sodium 250 Mg Tablet.) 250 mg PO BID [facility] Last Admin: 03/22/21 09:01 Dose: 250 mg Documented by: Fluconazole (Fluconazole 100 Mg Tablet) 100 mg PO DAILY [facility] Stop: 03/26/21 10:29 Last Admin: 03/22/21 09:01 Dose: 100 mg Documented by: Gabapentin (Gabapentin 300 Mg Capsule) 900 mg PO TID [facility] Last Admin: 03/22/21 09:01 Dose: 900 mg Documented by: Lidocaine (Lidocaine 4 % Patch Adh..Patch) 1 patch TRANSDERMA DAILY [facility]; Protocol Last Admin: 03/21/21 08:44 Dose: 1 patch Documented by: Lorazepam (Lorazepam 1 Mg Tablet) 1 mg PO BEDTIME PRN PRN Reason: insomnia Last Admin: 03/21/21 23:19 Dose: 1 mg Documented by: Magnesium Hydroxide (Milk Of Magnesia 30 Ml Oral.Susp) 30 ml PO DAILY PRN PRN Reason: Constipation Nicotine (Nicotine 21 Mg Patch.Td24) 21 mg TRANSDERMA DAILY [facility] Last Admin: 03/22/21 09:06 Dose: 21 mg Documented by: Nicotine Polacrilex (Nicotine Polacrilex 2 Mg Gum) 2 mg BUCCAL Q2H PRN PRN Reason: Nicotine Cravings Last Admin: 03/21/21 18:21 Dose: 2 mg Documented by: Prazosin HCl (Prazosin Hcl 1 Mg Capsule) 3 mg PO BEDTIME [facility]; Protocol Last Admin: 03/21/21 19:33 Dose: 3 mg Documented by: Propranolol HCl (Propranolol Hcl La 60 Mg Cap.Sa.24h) 60 mg PO BEDTIME [facility]; Protocol Last Admin: 03/21/21 19:34 Dose: 60 mg Documented by: Quetiapine Fumarate (Quetiapine Fumarate 50 Mg Tablet) 50 mg PO TID PRN PRN Reason: anxiety/restlessness Last Admin: 03/22/21 09:03 Dose: 50 mg Documented by: Risperidone (Risperidone 1 Mg Tablet) 1 mg PO BID [facility] Last Admin: 03/22/21 09:01 Dose: 1 mg Documented by: Senna/Docusate Sodium (Sennosides/Docusate Sodium Tablet) 2 tab PO BEDTIME [facility] Last Admin: 03/21/21 19:33 Dose: 2 tab Documented by: Sodium Chloride (Sodium Chloride 0.65 % Nasal 44 Ml Sprbtl) 1 spray NOSTRIL-B Q1H PRN PRN Reason: Congestion Trazodone HCl (Trazodone Hcl 100 Mg Tablet) 100 mg PO BEDTIME PRN PRN Reason: Insomnia Last Admin: 03/21/21 23:20 Dose: 100 mg Documented by: Allergies Allergies Allergy/AdvReac Type Severity Reaction Status Date / Time No Known Allergies Allergy Unverified 11/13/19 18:30 seasonal Allergy Unknown Uncoded 10/08/17 00:00 Assessment & Plan Assessment & Plan (1) Leukocytosis: Status: Acute Code(s): D72.829 - Elevated white blood cell count, unspecified Assessment and Plan: 40yo M admitted to inpatient psychiatry with SI from PTSD/anxiety and found to have leukocytosis/neutrophilia. Noted to have thrush. HIV Ab/Ag negative. 1. Leukocytosis/neutrophilia - No sign of infection other than oral thrush which shouldn't really cause leukocytosis. Will repeat CBC in am with manual differential/pathology review. Add LDH level. Blood cultures sent, pending; also ordered urinalysis/microscopy/culture. If neutrophilia persists and no obvious infectious cause is found, consider ID consultation and hematology consultation and peripheral flow cytometry. Medication-induced neutrophilia is reported with lithium, which has already been discontinued. 2. Thrush - Unclear cause- he's not on steroids or other immunosuppressives. HIV Ab/Ag is negative, but will r/o acute HIV with an RNA/viral load, to be drawn in am. Presence of swallowing symptoms suggests some esophageal involvement as well. Treat with fluconazole 200 mg today, then 100 mg daily, total 10 days. 3. Delirium by report - In my opinion, he is not Thank you for this consultation. We will continue to follow along with you. 03/17/21 Continue current plan of care. WBC trending down significantly today. 03/18/21 Reporting anxiety, depression, voices, SI. Significant MSE improvement Continue current plan at this time, changes as pt clears to work back to a regime he reports was helpful. 03/19/21 No changes to the above 03/20/21 Nicotine patch. No other changes 03/21/21 Pt reporting insomnia, anxiety and pain. Asking to return to previous regime as he found it more helpful with symptom mgt. 1. Discontinue scheduled Chlorpromazine, continue prn Chlorpromazine. 2. Increase benztropine to 1 mg bid, by history, per team, anxiety, agitation was akathesia in origin 3. Increase gabapentin to 900 mg tid, to address anxiety, pain, sleep. History of this dosage during previous admit. 4. Risperdal 1 mg bid, to address flashbacks, anxiety, sleep. History of this dosage during previous admit-not equal to chlorpromazine- (300 mg chlorpromazine = 3 mg Risperdal) 5. Increase Trazodone to 100 mg hs prn to address sleep- by history pt has used 200 mg 6. Ativan 1 mg hs prn insomnia to address sleep, anxiety- used with success by history 7. Increase Prazosin to 3 mg hs to address flashbacks.-used with success by history 8. [place] nasal spray prn congestion. 03/22/21- continue gabapentin, increase risperidone to 2mg po BID. continue cogentin, may try ativan 2mg qhs. I spent minutes with the patient and/or on the patient floor today, greater than?50% of which was spent counseling/coordinating care. Reason for contiued inpatient stay Substantial Risk for: inability to function
[2021-03-22] MEDS: Lidocaine 4 % Patch ADH..PATCH 1 PATCH TRANSDERMA (11:05)
[2021-03-22] MEDS: Nicotine Polacrilex 2 MG GUM BUCCAL ×2 (11:21→19:31)
[2021-03-22 13:50] VITALS: BP 131/77; PULSE 92
[2021-03-22] MEDS: cloNIDine HCL 0.1 MG TABLET PO (13:57)
[2021-03-22] MEDS: Sodium Chloride 0.65 % Nasal 44 ML SPRBTL 1 SPRAY NOSTRIL-B ×3 (17:22→22:23)
[2021-03-22 18:00] VITALS: BP 131/60; PULSE 83; TEMP 36.8; O2SAT 96
[2021-03-22] MEDS: Propranolol HCL LA 60 MG CAP.SA.24H PO (21:06)
[2021-03-22] MEDS: risperiDONE 2 MG TABLET PO (21:07)
[2021-03-22] MEDS: LORazepam 1 MG TABLET 2 MG PO (21:07)
[2021-03-22] MEDS: Sennosides/Docusate Sodium TABLET 2 TAB PO (21:08)
[2021-03-22] MEDS: Prazosin HCL 1 MG CAPSULE 3 MG PO (21:08)
[2021-03-23] MEDS: QUEtiapine Fumarate 50 MG TABLET PO ×2 (04:30→08:50)
[2021-03-23] MEDS: Sodium Chloride 0.65 % Nasal 44 ML SPRBTL 1 SPRAY NOSTRIL-B ×3 (04:30→15:22)
[2021-03-23 06:00] VITALS: BP 130/74; PULSE 86; TEMP 36.8; O2SAT 97
[2021-03-23] MEDS: Acetaminophen 325 MG TABLET 650 MG PO (06:40)
[2021-03-23] MEDS: Nicotine Polacrilex 2 MG GUM BUCCAL ×3 (06:45→15:22)
[2021-03-23] MEDS: Gabapentin 300 MG CAPSULE 900 MG PO ×2 (08:21→14:04)
[2021-03-23] MEDS: Nicotine 21 MG PATCH.TD24 TRANSDERMA (08:21)
[2021-03-23] MEDS: amLODIPine Besylate 2.5 MG TABLET PO (08:21)
[2021-03-23] MEDS: risperiDONE 2 MG TABLET PO (08:21)
[2021-03-23] MEDS: Fluconazole 100 MG TABLET PO (08:21)
[2021-03-23] MEDS: Lidocaine 4 % Patch ADH..PATCH 1 PATCH TRANSDERMA (08:21)
[2021-03-23] MEDS: Divalproex Sodium 250 MG TABLET.DR PO (08:21)
[2021-03-23 08:37] VITALS: BP 135/77; PULSE 76; RESP 16
--- NOTE | 2021-03-23 10:01 | HO.PSYCHPN ---
Subjective Subjective Date of Service: 03/23/21 Reason For Visit: SI Interim History: Pt reports he feels slightly more rested this morning but he did wake up 3 am and took shower and went back to sleep. He reports not hearing voices today, seeing few shadows at times but much less so. He denies SI/HI. He reports feeling less anxious, calmer. He is more oriented and organized than last week. He reports his mood is good Per nursing, poor boundaries with female staff but able to be redirected. Review of Systems Review of Systems Could not be assessed Yes all other systems are reviewed and are negative and Unobtainable due to mental status Reports behavioral changes, Reports confusion and Reports memory loss Psychiatric: Reports abnormal sleep pattern, Reports anxiety, Reports behavioral changes, Reports change in appetite, Reports confusion, Reports depression, Reports difficulty concentrating, Reports auditory hallucinations, Reports hopelessness, Reports irritability, Reports anhedonia, Reports memory loss, Reports mood swings, Reports paranoia, Reports visual hallucinations, Reports hallucinations and Reports suicidal ideation Mental Status Exam Mental Status Exam Narrative: appropriately dressed and groomed, in NAD. cooperative. speech nml rate, nml amount, nml latency. thoughts linear. affect constricted, normo-intense, non-labile. no SI/HI/VH expressed. less AH. Diagnostics Vital Signs (24Hr): Vital Signs - 24 hr 03/22/21 18:00 03/23/21 06:00 03/23/21 08:37 Temperature 98.3 F 98.2 F Pulse Rate 83 86 76 Respiratory Rate 16 Blood Pressure 131/60 130/74 135/77 Pulse Oximetry 96 97 BMI result Body Mass Index 26.9 Labs Results: 03/22/21 08:02 03/16/21 08:15 Labs: Laboratory Results - last 48 hr 03/17/21 03/22/21 08:15 08:02 WBC 12.4 H HIV-1 RNA copies/mL <20 HIV-1 RNA logcopies/mL <1.30 Imaging Radiology Impressions: ITS Impressions Chest X-Ray 03/16/21 11:10 IMPRESSION: No acute disease. Head CT 03/16/21 12:33 IMPRESSION: Mild inflammatory changes in the frontal and ethmoid sinuses otherwise unremarkable exam.. Medications Medications Current Medications Acetaminophen (Acetaminophen 325 Mg Tablet) 650 mg PO Q6H PRN PRN Reason: Headache/Pain Mild Scale (1-3) Last Admin: 03/23/21 06:40 Dose: 650 mg Documented by: Al Hydroxide/Mg Hydroxide (Magnesium Hydrox/Alum Hydrox 30 Ml Oral.Susp) 30 ml PO Q6H PRN PRN Reason: Heartburn/Nausea Amlodipine Besylate (Amlodipine Besylate 2.5 Mg Tablet) 2.5 mg PO DAILY [facility]; Protocol Last Admin: 03/23/21 08:21 Dose: 2.5 mg Documented by: Benztropine Mesylate (Benztropine Mesylate 1 Mg Tablet) 1 mg PO BID [facility] Chlorpromazine HCl (Chlorpromazine Hcl 100 Mg Tablet) 200 mg PO Q2H PRN PRN Reason: agitation Last Admin: 03/18/21 18:47 Dose: 200 mg Documented by: Clonidine (Clonidine 0.1 Mg Patch.Tdwk) 0.1 mg TRANSDERMA Th@0900 [facility]; Protocol Last Admin: 03/17/21 11:32 Dose: 0.1 mg Documented by: Clonidine HCl (Clonidine Hcl 0.1 Mg Tablet) 0.1 mg PO Q2H PRN; Protocol PRN Reason: Anxiety Last Admin: 03/23/21 14:03 Dose: 0.1 mg Documented by: Divalproex Sodium (Divalproex Sodium 250 Mg Tablet.) 250 mg PO BID [facility] Last Admin: 03/23/21 08:21 Dose: 250 mg Documented by: Fluconazole (Fluconazole 100 Mg Tablet) 100 mg PO DAILY [facility] Stop: 03/26/21 10:29 Last Admin: 03/23/21 08:21 Dose: 100 mg Documented by: Gabapentin (Gabapentin 300 Mg Capsule) 900 mg PO TID [facility] Last Admin: 03/23/21 14:04 Dose: 900 mg Documented by: Lidocaine (Lidocaine 4 % Patch Adh..Patch) 1 patch TRANSDERMA DAILY [facility]; Protocol Last Admin: 03/23/21 08:21 Dose: 1 patch Documented by: Lorazepam (Lorazepam 1 Mg Tablet) 2 mg PO BEDTIME [facility] Last Admin: 03/22/21 21:07 Dose: 2 mg Documented by: Magnesium Hydroxide (Milk Of Magnesia 30 Ml Oral.Susp) 30 ml PO DAILY PRN PRN Reason: Constipation Nicotine (Nicotine 21 Mg Patch.Td24) 21 mg TRANSDERMA DAILY [facility] Last Admin: 03/23/21 08:21 Dose: 21 mg Documented by: Nicotine Polacrilex (Nicotine Polacrilex 2 Mg Gum) 2 mg BUCCAL Q2H PRN PRN Reason: Nicotine Cravings Last Admin: 03/23/21 08:50 Dose: 2 mg Documented by: Prazosin HCl (Prazosin Hcl 1 Mg Capsule) 3 mg PO BEDTIME [facility]; Protocol Last Admin: 03/22/21 21:08 Dose: 3 mg Documented by: Propranolol HCl (Propranolol Hcl La 60 Mg Cap.Sa.24h) 60 mg PO BEDTIME [facility]; Protocol Last Admin: 03/22/21 21:06 Dose: 60 mg Documented by: Quetiapine Fumarate (Quetiapine Fumarate 50 Mg Tablet) 50 mg PO TID PRN PRN Reason: anxiety/restlessness Last Admin: 03/23/21 08:50 Dose: 50 mg Documented by: Risperidone (Risperidone 2 Mg Tablet) 2 mg PO BID [facility] Last Admin: 03/23/21 08:21 Dose: 2 mg Documented by: Senna/Docusate Sodium (Sennosides/Docusate Sodium Tablet) 2 tab PO BEDTIME [facility] Last Admin: 03/22/21 21:08 Dose: 2 tab Documented by: Sodium Chloride (Sodium Chloride 0.65 % Nasal 44 Ml Sprbtl) 1 spray NOSTRIL-B Q1H PRN PRN Reason: Congestion Last Admin: 03/23/21 06:46 Dose: 1 spray Documented by: Trazodone HCl (Trazodone Hcl 100 Mg Tablet) 100 mg PO BEDTIME PRN PRN Reason: Insomnia Last Admin: 03/21/21 23:20 Dose: 100 mg Documented by: Allergies Allergies Allergy/AdvReac Type Severity Reaction Status Date / Time No Known Allergies Allergy Unverified 11/13/19 18:30 seasonal Allergy Unknown Uncoded 10/08/17 00:00 Assessment & Plan Assessment & Plan (1) MDD (major depressive disorder), recurrent, severe, with psychosis: Status: Acute Code(s): F33.3 - Major depressive disorder, recurrent, severe with psychotic symptoms (2) Leukocytosis: Status: Acute Code(s): D72.829 - Elevated white blood cell count, unspecified (3) Cocaine use disorder, moderate, dependence: Status: Acute Code(s): F14.20 - Cocaine dependence, uncomplicated Plan 40yo M admitted to inpatient psychiatry with SI from PTSD/anxiety and found to have leukocytosis/neutrophilia. Noted to have thrush. HIV Ab/Ag negative. MEDICAL: 1. Leukocytosis/neutrophilia - No sign of infection other than oral thrush which shouldn't really cause leukocytosis. Will repeat CBC in am with manual differential/pathology review. Add LDH level. Blood cultures sent, pending; also ordered urinalysis/microscopy/culture. If neutrophilia persists and no obvious infectious cause is found, consider ID consultation and hematology consultation and peripheral flow cytometry. Medication-induced neutrophilia is reported with lithium, which has already been discontinued. 2. Thrush - Unclear cause- he's not on steroids or other immunosuppressives. HIV Ab/Ag is negative, but will r/o acute HIV with an RNA/viral load, to be drawn in am. Presence of swallowing symptoms suggests some esophageal involvement as well. Treat with fluconazole 200 mg today, then 100 mg daily, total 10 days. PSYCHIATRIC: 03/17/21 Continue current plan of care. WBC trending down significantly today. 03/18/21 Reporting anxiety, depression, voices, SI. Significant MSE improvement Continue current plan at this time, changes as pt clears to work back to a regime he reports was helpful. 03/19/21 No changes to the above 03/20/21 Nicotine patch. No other changes 03/21/21 Pt reporting insomnia, anxiety and pain. Asking to return to previous regime as he found it more helpful with symptom mgt. 1. Discontinue scheduled Chlorpromazine, continue prn Chlorpromazine. 2. Increase benztropine to 1 mg bid, by history, per team, anxiety, agitation was akathesia in origin 3. Increase gabapentin to 900 mg tid, to address anxiety, pain, sleep. History of this dosage during previous admit. 4. Risperdal 1 mg bid, to address flashbacks, anxiety, sleep. History of this dosage during previous admit-not equal to chlorpromazine- (300 mg chlorpromazine = 3 mg Risperdal) 5. Increase Trazodone to 100 mg hs prn to address sleep- by history pt has used 200 mg 6. Ativan 1 mg hs prn insomnia to address sleep, anxiety- used with success by history 7. Increase Prazosin to 3 mg hs to address flashbacks.-used with success by history 8. [place] nasal spray prn congestion. 03/22/21- continue gabapentin, increase risperidone to 2mg po BID. continue cogentin, may try ativan 2mg qhs. 03/23: improved sleep, less AH, no SI/HI. future oriented, less anxious. I spent minutes with the patient and/or on the patient floor today, greater than?50% of which was spent counseling/coordinating care. Reason for contiued inpatient stay Substantial Risk for: harm to self
[2021-03-23 10:06] LABS: HIV RNA PCR Qn Copies <20 Copies/mL; HIV RNA PCR Qn Log Copies <1.30 Log cps/mL
--- NOTE | 2021-03-23 10:17 | P.PNPSI_ITS ---
Subjective Subjective Date of Service: 03/23/21 Reason For Visit: SI Interim History: Pt reports he feels slightly more rested this morning but he did wake up 3 am and took shower and went back to sleep. He reports not hearing voices today, seeing few shadows at times but much less so. He denies SI/HI. He reports feeling less anxious, calmer. He is more oriented and organized than last week. He reports his mood is good Per nursing, poor boundaries with female staff but able to be redirected. Review of Systems Review of Systems Could not be assessed Yes all other systems are reviewed and are negative and Unobtainable due to mental status Reports behavioral changes, Reports confusion and Reports memory loss Psychiatric: Reports abnormal sleep pattern, Reports anxiety, Reports behavioral changes, Reports change in appetite, Reports confusion, Reports depression, R eports difficulty concentrating, Reports auditory hallucinations, Reports hopelessness, Reports irritability, Reports anhedonia, Reports memory loss, Reports mood swings, Reports paranoia, Reports visual hallucinations, Reports hallucinations and Reports suicidal ideation Mental Status Exam Mental Status Exam Narrative: appropriately dressed and groomed, in NAD. cooperative. speech nml rate, nml amount, nml latency. thoughts linear. affect constricted, normo-intense, non- labile. no SI/HI/VH expressed. less AH. Diagnostics Vital Signs (24Hr): Vital Signs - 24 hr 03/22/21 13:50 03/22/21 18:00 03/23/21 06:00 Temperature 98.3 F 98.2 F Pulse Rate 92 83 86 Respiratory Rate Blood Pressure 131/77 131/60 130/74 Pulse Oximetry 96 97 03/23/21 08:37 Temperature Pulse Rate 76 Respiratory Rate 16 Blood Pressure 135/77 Pulse Oximetry BMI result [place] 4 Body Mass Index Ver[place] 4 26.9 Ver[place] 4 Verdana 4 Labs Results: 03/22/21 08:02 03/16/21 08:15 Labs: Laboratory Results - last 48 hr 03/17/21 03/22/21 08:15 08:02 WBC 12.4 H HIV-1 RNA copies/mL <20 HIV-1 RNA logcopies/mL <1.30 Imaging Radiology Impressions: ITS Impressions Chest X-Ray 03/16/21 11:10 IMPRESSION: No acute disease. Head CT 03/16/21 12:33 IMPRESSION: Mild inflammatory changes in the frontal and ethmoid sinuses otherwise unremarkable exam.. Medications Medications Current Medications Acetaminophen (Acetaminophen 325 Mg Tablet) 650 mg PO Q6H PRN PRN Reason: Headache/Pain Mild Scale (1-3) Last Admin: 03/23/21 06:40 Dose: 650 mg Documented by: Al Hydroxide/Mg Hydroxide (Magnesium Hydrox/Alum Hydrox 30 Ml Oral.Susp) 30 ml PO Q6H PRN PRN Reason: Heartburn/Nausea Amlodipine Besylate (Amlodipine Besylate 2.5 Mg Tablet) 2.5 mg PO DAILY [facility]; Protocol Last Admin: 03/23/21 08:21 Dose: 2.5 mg Documented by: Benztropine Mesylate (Benztropine Mesylate 1 Mg Tablet) 1 mg PO BID [facility] Chlorpromazine HCl (Chlorpromazine Hcl 100 Mg Tablet) 200 mg PO Q2H PRN PRN Reason: agitation Last Admin: 03/18/21 18:47 Dose: 200 mg Documented by: Clonidine (Clonidine 0.1 Mg Patch.Tdwk) 0.1 mg TRANSDERMA Th@0900 [facility]; Protocol Last Admin: 03/17/21 11:32 Dose: 0.1 mg Documented by: Clonidine HCl (Clonidine Hcl 0.1 Mg Tablet) 0.1 mg PO Q2H PRN; Protocol PRN Reason: Anxiety Last Admin: 03/22/21 13:57 Dose: 0.1 mg Documented by: Divalproex Sodium (Divalproex Sodium 250 Mg Tablet.) 250 mg PO BID [facility] Last Admin: 03/23/21 08:21 Dose: 250 mg Documented by: Fluconazole (Fluconazole 100 Mg Tablet) 100 mg PO DAILY [facility] Stop: 03/26/21 10:29 Last Admin: 03/23/21 08:21 Dose: 100 mg Documented by: Gabapentin (Gabapentin 300 Mg Capsule) 900 mg PO TID [facility] Last Admin: 03/23/21 08:21 Dose: 900 mg Documented by: Lidocaine (Lidocaine 4 % Patch Adh..Patch) 1 patch TRANSDERMA DAILY [facility]; Protocol Last Admin: 03/23/21 08:21 Dose: 1 patch Documented by: Lorazepam (Lorazepam 1 Mg Tablet) 2 mg PO BEDTIME [facility] Last Admin: 03/22/21 21:07 Dose: 2 mg Documented by: Magnesium Hydroxide (Milk Of Magnesia 30 Ml Oral.Susp) 30 ml PO DAILY PRN PRN Reason: Constipation Nicotine (Nicotine 21 Mg Patch.Td24) 21 mg TRANSDERMA DAILY [facility] Last Admin: 03/23/21 08:21 Dose: 21 mg Documented by: Nicotine Polacrilex (Nicotine Polacrilex 2 Mg Gum) 2 mg BUCCAL Q2H PRN PRN Reason: Nicotine Cravings Last Admin: 03/23/21 08:50 Dose: 2 mg Documented by: Prazosin HCl (Prazosin Hcl 1 Mg Capsule) 3 mg PO BEDTIME [facility]; Protocol Last Admin: 03/22/21 21:08 Dose: 3 mg Documented by: Propranolol HCl (Propranolol Hcl La 60 Mg Cap.Sa.24h) 60 mg PO BEDTIME [facility]; Protocol Last Admin: 03/22/21 21:06 Dose: 60 mg Documented by: Quetiapine Fumarate (Quetiapine Fumarate 50 Mg Tablet) 50 mg PO TID PRN PRN Reason: anxiety/restlessness Last Admin: 03/23/21 08:50 Dose: 50 mg Documented by: Risperidone (Risperidone 2 Mg Tablet) 2 mg PO BID [facility] Last Admin: 03/23/21 08:21 Dose: 2 mg Documented by: Senna/Docusate Sodium (Sennosides/Docusate Sodium Tablet) 2 tab PO BEDTIME [facility] Last Admin: 03/22/21 21:08 Dose: 2 tab Documented by: Sodium Chloride (Sodium Chloride 0.65 % Nasal 44 Ml Sprbtl) 1 spray NOSTRIL-B Q1H PRN PRN Reason: Congestion Last Admin: 03/23/21 06:46 Dose: 1 spray Documented by: Trazodone HCl (Trazodone Hcl 100 Mg Tablet) 100 mg PO BEDTIME PRN PRN Reason: Insomnia Last Admin: 03/21/21 23:20 Dose: 100 mg Documented by: Allergies Allergies Allergy/AdvReac Type Severity Reaction Status Date / Time No Known Allergies Allergy Unverified 11/13/19 18:30 seasonal Allergy Unknown Uncoded 10/08/17 00:00 Assessment & Plan Assessment & Plan (1) Leukocytosis: Status: Acute Code(s): D72.829 - Elevated white blood cell count, unspecified Plan 40yo M admitted to inpatient psychiatry with SI from PTSD/anxiety and found to have leukocytosis/neutrophilia. Noted to have thrush. HIV Ab/Ag negative. 1. Leukocytosis/neutrophilia - No sign of infection other than oral thrush which shouldn't really cause leukocytosis. Will repeat CBC in am with manual differential/pathology review. Add LDH level. Blood cultures sent, pending; also ordered urinalysis/microsco py/culture. If neutrophilia persists and no obvious infectious cause is found, consider ID consultation and hematology consultation and peripheral flow cytometry. Medication-induced neutrophilia is reported with lithium, which has already been discontinued. 2. Thrush - Unclear cause- he's not on steroids or other immunosuppressives. HIV Ab/Ag is negative, but will r/o acute HIV with an RNA/viral load, to be drawn in am. Presence of swallowing symptoms suggests some esophageal involvement as well. Treat with fluconazole 200 mg today, then 100 mg daily, total 10 days. 3. Delirium by report - In my opinion, he is not Thank you for this consultation. We will continue to follow along with you. 03/17/21 Continue current plan of care. WBC trending down significantly today. 03/18/21 Reporting anxiety, depression, voices, SI. Significant MSE improvement Continue current plan at this time, changes as pt clears to work back to a regime he reports was helpful. 03/19/21 No changes to the above 03/20/21 Nicotine patch. No other changes 03/21/21 Pt reporting insomnia, anxiety and pain. Asking to return to previous regime as he found it more helpful with symptom mgt. 1. Discontinue scheduled Chlorpromazine, continue prn Chlorpromazine. 2. Increase benztropine to 1 mg bid, by history, per team, anxiety, agitation was akathesia in origin 3. Increase gabapentin to 900 mg tid, to address anxiety, pain, sleep. History of this dosage during previous admit. 4. Risperdal 1 mg bid, to address flashbacks, anxiety, sleep. History of this dosage during previous admit-not equal to chlorpromazine- (300 mg chlorpromazine = 3 mg Risperdal) 5. Increase Trazodone to 100 mg hs prn to address sleep- by history pt has used 200 mg 6. Ativan 1 mg hs prn insomnia to address sleep, anxiety- used with success by history 7. Increase Prazosin to 3 mg hs to address flashbacks.-used with success by graham castellon 8. [place] nasal spray prn congestion. 03/22/21- continue gabapentin, increase risperidone to 2mg po BID. continue cogentin, may try ativan 2mg qhs. I spent minutes with the patient and/or on the patient floor today, greater than?50% of which was spent counseling/coordinating care. Reason for contiued inpatient stay Substantial Risk for: inability to function
[2021-03-23] MEDS: cloNIDine HCL 0.1 MG TABLET PO (14:03)
--- NOTE | 2021-03-23 16:53 | PC.NURSE ---
Pt discharged @1640. Pt anxious and agitated about discharge paper work and how he will do everything on the outside. Pt reported I have a plane to catch at 9 . Pt reported that he is traveling to [place] for a week. Pt initially requested proof of his COVID results but then reported that he didn't want it because he wanted to discharge [facility]. Pt reported that he will call follow up with appointments. Pt reports that I will be in traffic in [place]. Hurry Up! Pt verbalized understanding of discharge instructions. [facility]. Pt denies si,hi at this time.
--- NOTE | 2021-04-01 16:07 | PM.PSYDC ---
DS: Providers Provider Date of Service: 03/23/21 Date of admission: 03/09/21 16:21 Date of discharge: 03/23/21 Primary care physician: Unknown Physician Admitting clinician: Bernabe Mcpherson Attending physician on admission: Bernabe Mcpherson Consults: 03/16/21 10:34 Consult to Hospitalist Routine Consulting Provider: Hospitalist Reason For Exam: delirium, WBC 28K Attending physician on discharge: Russell Sousa Discharging clinician: Ivy Zimmerman DS: Diagnosis Discharge Diagnosis (1) MDD (major depressive disorder), recurrent, severe, with psychosis: Status: Acute (2) Leukocytosis: Status: Acute (3) Cocaine use disorder, moderate, dependence: Status: Acute DS: Medications Discharge Medications Home Medications: Previous Rx's Medication Instructions Recorded amlodipine 2.5 mg tablet 2.5 mg PO DAILY #30 tab 03/23/21 benztropine 1 mg tablet 1 mg PO BID #60 tab 03/23/21 divalproex 250 mg tablet,delayed 250 mg PO BID #60 tab 03/23/21 release fluconazole 100 mg tablet 100 mg PO DAILY #7 tab 03/23/21 gabapentin 300 mg capsule 900 mg PO TID #90 cap 03/23/21 nicotine (polacrilex) 2 mg gum 2 mg BUCCAL Q2H PRN #60 ea 03/23/21 nicotine 21 mg/24 hr daily 21 mg TRANSDERMAL DAILY #30 ea 03/23/21 transdermal patch prazosin 1 mg capsule 3 mg PO BEDTIME #45 cap 03/23/21 propranolol 60 mg capsule,24 60 mg PO BEDTIME #30 cap 03/23/21 hr,extended release risperidone 2 mg tablet 2 mg PO BID #60 tab 03/23/21 sennosides 8.6 mg-docusate sodium 2 tab PO BEDTIME #30 tab 03/23/21 50 mg tablet (Senna Plus) trazodone 100 mg tablet 100 mg PO BEDTIME PRN #30 tab 03/23/21 Mental Status Exam Mental Status Exam Narrative: appropriately dressed and groomed, in NAD. cooperative. speech nml rate, nml amount, nml latency. thoughts linear. affect constricted, normo-intense, non-labile. no SI/HI/VH expressed. less AH. Data Data Completed and Pending Completed studies during hospitalization [Text1]: 03/16/21 10:56 Blood - Venous Blood Culture - Final No growth after 5 days. 03/16/21 10:49 Blood - Venous Blood Culture - Final No growth after 5 days. Imaging Diagnostic Imaging Impressions Chest X-Ray 03/16/21 11:10 IMPRESSION: No acute disease. Head CT 03/16/21 12:33 IMPRESSION: Mild inflammatory changes in the frontal and ethmoid sinuses otherwise unremarkable exam.. DS: Summary Hospital Course Hospital Course: Admission to adult psychiatry to address symptoms of recurrent major depression with psychosis, cocaine use disorder and leukocytosis. Care plan, medication regime and out patient plan of care prior to admission were reviewed. Education was provided regarding management of symptoms, medications and side effects. Nursing and social media sr strategy manager worked with Martin on collateral contacts, plan of care, education regarding management of symptoms, medications and discharge planning. Depakote, Risperdal, Gabapentin, Benztropine, Propranolol and Trazodone were titrated during pt's admission. Time spent discussing smoking cessation with patient: 3 to 10 minutes Status at Discharge Functional status at discharge: independent ambulation Overall status at discharge: patient is back to baseline Time Spent with Patient Time attestation: Total time spent providing and/or coordinating discharge services: 35 Time spent: Greater than 30 minutes Discharge Plan Discharge Patient Disposition: Home, Self-Care Discharge Diagnosis: MDD recurent with psychosis cocaine use disorder Referrals: [facility] [Other] - 1 Week (Referral for outpatient therapy and psychiatry services Patient needs to follow-up with [facility] regarding appointments after discharge to obtain date and time for therapy and psychiatry appointments with providers.) [facility] [Physician] - 1 Week Discharge Medications: New fluconazole 100 mg Tablet 100 mg PO DAILY Qty: 7 0RF nicotine (polacrilex) 2 mg Gum 2 mg buccal Q2H PRN (Reason: Nicotine Cravings) Qty: 60 0RF prazosin 1 mg Capsule 3 mg PO BEDTIME Qty: 45 0RF Protocol: Hold for SBP< HOLD for SBP < : 90 propranolol 60 mg Capsule,Extended Release 24 Hr 60 mg PO BEDTIME Qty: 30 0RF Protocol: Hold for SBP/HR < HOLD for SBP < : 90 HOLD for HR < : 60 amlodipine 2.5 mg Tablet 2.5 mg PO DAILY Qty: 30 0RF Protocol: Hold for SBP< HOLD for SBP < : 90 benztropine 1 mg Tablet 1 mg PO BID Qty: 60 0RF nicotine 21 mg/24 hr Patch 24 Hour 21 mg transdermal DAILY Qty: 30 0RF gabapentin 300 mg Capsule 900 mg PO TID Qty: 90 0RF divalproex 250 mg Tablet,Delayed Release (Dr/Ec) 250 mg PO BID Qty: 60 0RF sennosides-docusate sodium [Senna Plus] 8.6-50 mg Tablet 2 tab PO BEDTIME Qty: 30 0RF risperidone 2 mg Tablet 2 mg PO BID Qty: 60 0RF trazodone 100 mg Tablet 100 mg PO BEDTIME PRN (Reason: Insomnia) Qty: 30 0RF Discontinued nicotine (polacrilex) 2 mg Gum 2 mg buccal Q2H PRN (Reason: Nicotine Cravings) Qty: 30 0RF amlodipine 2.5 mg Tablet 2.5 mg PO DAILY Qty: 30 0RF Protocol: Hold for SBP< HOLD for SBP < : 90 prazosin 2 mg capsule 2 mg PO BEDTIME Qty: 15 1RF propranolol 60 mg Capsule,Extended Release 24 Hr 60 mg PO BEDTIME Qty: 30 0RF Protocol: Hold for SBP/HR < HOLD for SBP < : 90 HOLD for HR < : 60 hydroxyzine HCl 50 mg Tablet 50 mg PO TID PRN (Reason: Anxiety/sleep) Qty: 60 0RF benztropine 1 mg Tablet 1 mg PO BID Qty: 60 0RF gabapentin 300 mg Capsule 900 mg PO TID Qty: 90 0RF lorazepam 2 mg tablet 2 mg PO BEDTIME Qty: 15 0RF docosanol [Abreva] 10 % Cream 1 appl topical 5XD Qty: 2 0RF Protocol: Apply to: Apply to: sore on left side of lip lidocaine [Lidocaine Pain Relief] 4 % Adhesive Patch,Medicated 1 patch transdermal DAILY Qty: 30 0RF Protocol: Apply to: Apply to: lower back sennosides-docusate sodium [Senna Plus] 8.6-50 mg Tablet 2 tab PO BEDTIME Qty: 60 0RF risperidone 1 mg Tablet 1 mg PO BID Qty: 60 0RF Discharge Orders: Discharge Order (Routine); Ordered 03/23/21 Ordered By: Ivy Zimmerman Diet: regular diet Activity on Discharge: As tolerated Stand Alone Forms: Patient Portal Discharge page, Community Support Care Plan Goals: 1. maintain mood 2. No SI/HI 3. No sign of aggression towards self or others Health Concerns: follow up with PCP Plan of Treatment: take medications as prescribed call 911 or go to nearest ed in event of emergency Assessment: Pt with no signs of psychosis, no delusional content reported. He denies SI/HI. sleep improved. No signs of aggression towards self or others. declines referrals for substance use. pt educated on effects of cocaine use on psychosis, mood. Discharge Date/Time: 03/23/21 16:50
== END 2021-03-23 16:50 | disposition home or self-care (01) | DRG 885 ==
LOC: HO.ED 13:02 → HO.PADLT16 17:05 → HO.PM5 03-16 14:37
PROVIDERS: Family Medicine; Hospitalist; Physician Assistant; Admitting Provider Psychiatry & Neurology Psychiatry; Emergency Provider Emergency Medicine; Visit Provider Clinical Nurse Specialist Psychiatric/Mental Health, Adult
DX: F33.3 Major depressive disorder, recurrent, severe with psychotic symptoms (principal); R45.851 Suicidal ideations; F14.20 Cocaine dependence, uncomplicated; B37.0 Candidal stomatitis; D72.829 Elevated white blood cell count, unspecified; F43.10 Post-traumatic stress disorder, unspecified; Z20.822 Contact with and (suspected) exposure to COVID-19; Z91.51 Personal history of suicidal behavior; F17.210 Nicotine dependence, cigarettes, uncomplicated; Z71.6 Tobacco abuse counseling; Z79.899 Other long term (current) drug therapy
CPT/HCPCS: 36415; 70450; 71045; 80048; 80076; 80178; 80307; 82077; 83615; 84145; 85007; 85025; 85027; 86140; 86704; 86706; 86803; 87040; 87340; 87389; 87536; 87635; 93005; 99285